=== PATIENT | female | born 1980 ===

== ENCOUNTER → 2020-08-31 15:04 | Outpatient (BNVA) | payer MEDICAID, SELFPAY | PROVIDERS: PCP Internal Medicine; Visit Provider Internal Medicine Pulmonary Disease | DX: J45.40 Moderate persistent asthma, uncomplicated (principal); Z91.09 Other allergy status, other than to drugs and biological substances | CPT/HCPCS: 99212 ==

== ENCOUNTER → 2020-10-29 14:54 | Outpatient (BNVA) | payer MEDICAID, SELFPAY | PROVIDERS: PCP Internal Medicine; Visit Provider Internal Medicine Pulmonary Disease | DX: J45.40 Moderate persistent asthma, uncomplicated (principal); Z91.09 Other allergy status, other than to drugs and biological substances | CPT/HCPCS: 99212 ==

== ENCOUNTER 2021-01-01 12:56 | Outpatient (REF) | payer MEDICAID, SELFPAY ==
--- NOTE | ~2021-01-01 | MM_ITS ---
EXAMINATION: MM DIAGNOSTIC DIGITAL BREAST TOMOSYNTHESIS, Targeted left breast ultrasound upper outer aspect CLINICAL INFORMATION: Nodularity felt by physician the 12 to 3:00 position The lifetime risk of breast cancer based on the Tyrer-Cuzick Model is 10.9%. COMPARISON: Mammography: February 13, 2020 and studies dating back to March 22, 2015 TECHNIQUE: Digital breast tomosynthesis is performed in both the craniocaudal and mediolateral oblique views along with computer-aided detection (CAD). Synthesized 2D images are generated from the tomosynthesis. Additional right breast exaggerated craniocaudal view performed. Targeted left breast ultrasound. FINDINGS: The breasts are extremely dense, which lowers the sensitivity of mammography (ACR BI-RADS breast composition Category d). There are no significant masses, abnormal calcifications, or other abnormalities. Targeted left breast ultrasound to the upper outer aspect did not demonstrate any abnormal cystic or solid mass. No region of abnormal distal sound shadowing was appreciated. Results are provided to the patient at time of visit by the technologist. MM/MM tomosynthesis diagnostic BI IMPRESSION: No mammographic or ultrasound findings to suggest malignancy. ASSESSMENT: BI-RADS 1: Negative RECOMMENDATION: Routine annual mammography screening due in 12 months. Clinical follow-up for palpable abnormality. This patient's information was entered into a reminder system with a target due date for their next mammogram.
--- NOTE | ~2021-01-01 | US_ITS ---
EXAMINATION: US DIAGNOSTIC ULTRASOUND BREAST, LEFT CLINICAL INFORMATION: Nodularity felt by referring physician.. COMPARISON: Mammography of same day and studies dating back to March 22, 2015. TECHNIQUE: Ultrasound of the breast is performed with real-time [place] scale imaging and color Doppler. FINDINGS: There is no focal suspicious finding. There is no solid mass, architectural abnormality, duct ectasia, or edema in the soft tissue planes. Results are discussed with the patient at time of visit. US/US breast LT limited IMPRESSION: No specific left breast ultrasound abnormality to suggest malignancy. ASSESSMENT: BI-RADS 1: Negative RECOMMENDATION: Routine annual mammography screening due in 12 months. Clinical follow-up for palpable abnormality. This patient's information was entered into a reminder system with a target due date for their next mammogram.
== END 2021-01-01 12:57 | disposition home or self-care (01) ==
LOC: HO.MAMMO 12:56
PROVIDERS: PCP Internal Medicine; Visit Provider Advanced Practice Midwife
DX: N63.21 Unspecified lump in the left breast, upper outer quadrant (principal)
CPT/HCPCS: 76642; 77062; 77066

== ENCOUNTER → 2021-03-21 14:32 | Outpatient (BNVA) | payer MEDICAID, SELFPAY | PROVIDERS: PCP Internal Medicine; Visit Provider Internal Medicine Pulmonary Disease | DX: J45.40 Moderate persistent asthma, uncomplicated (principal); Z91.09 Other allergy status, other than to drugs and biological substances; Z88.0 Allergy status to penicillin; Z88.8 Allergy status to other drugs, medicaments and biological substances | CPT/HCPCS: 99212 ==

== ENCOUNTER 2021-05-23 16:17 | Outpatient (REF) | payer MEDICAID, SELFPAY ==
[2021-05-23 16:35] LABS: MANUAL DIFF FLAG NO
[2021-05-23 17:02] LABS: Basophils Percent Auto 0.4 % (0-2); Eosinophils Absolute Auto 0.2 X10*3/uL (0.0-0.4); Eosinophils Percent Auto 1.7 % (0-4); Hematocrit 35.5 % (37-47); Hemoglobin 11.6 g/dl (12.0-16.0); Imm Gran Abs Auto 0.02 X10*3/uL (0.00-0.03); Imm Gran Pct Auto 0.2 % (0.0-0.4); Lymphocytes Absolute Auto 2.9 X10*3/uL (1.2-4.9); Lymphocytes Percent Auto 31.7 % (20-40); Mean Corpuscular HGB Conc 32.7 g/dl (31.0-35.0); Mean Corpuscular Hemoglobin 27.2 pg (27.0-33.0); Mean Corpuscular Volume 83.1 fL (80-98); Mean Platelet Volume 9.6 fL (9.4-12.3); Monocytes Absolute Auto 0.9 X10*3/uL (0.1-1.2); Monocytes Percent Auto 9.3 % (2-11); Neutrophils Absolute Auto 5.3 X10*3/uL (2.0-8.3); Neutrophils Percent Auto 56.7 % (45-73); Platelet Count 370 X10*3/uL (160-400); Red Blood Count 4.27 X10*6/uL (4.20-5.50); Red Cell Distribution Width 15.3 % (11.0-16.0); White Blood Count 9.3 X10*3/uL (4.8-10.8)
[2021-05-23 17:44] LABS: HCG Quantitative < 2 mIU/mL; Procalcitonin 0.03 ng/mL; T4 Thyroxine 7.2 ug/dL (4.5-12.0); TSH reflex Free T4 0.57 uIU/mL (0.32-4.0)
[2021-05-24 06:51] LABS: T3 Uptake 27 % (22-35)
[2021-05-24 17:27] LABS: Follicle Stimulating Hormone 2.3 mIU/mL
[2021-05-30 21:56] LABS: Estradiol Free 8.39 pg/mL; Estradiol, Ultrasensitive 471 pg/mL
== END 2021-05-23 16:18 | disposition home or self-care (01) ==
LOC: HO.LAB 16:17
PROVIDERS: Absent Provider Internal Medicine; PCP Internal Medicine; Visit Provider Family Medicine
DX: N91.1 Secondary amenorrhea (principal)
CPT/HCPCS: 36415; 82670; 82681; 83001; 84145; 84436; 84443; 84479; 84702; 85025

== ENCOUNTER → 2021-11-06 14:26 | Outpatient (BNVA) | payer MEDICAID, SELFPAY | PROVIDERS: PCP Internal Medicine; Visit Provider Internal Medicine Pulmonary Disease | DX: J45.40 Moderate persistent asthma, uncomplicated (principal); Z91.09 Other allergy status, other than to drugs and biological substances | CPT/HCPCS: 99212 ==

== ENCOUNTER 2022-01-03 07:24 | Outpatient (REF) | payer MEDICAID, SELFPAY ==
--- NOTE | ~2022-01-03 | MM_ITS ---
EXAMINATION: MM SCREENING DIGITAL BREAST TOMOSYNTHESIS, BILATERAL CLINICAL INFORMATION: Screening. Asymptomatic. The lifetime risk of breast cancer based on the Tyrer-Cuzick Model is 12%. COMPARISON: Mammography: 01/01/2021, 02/13/2020, 04/03/2019 TECHNIQUE: Digital breast tomosynthesis is performed in both the craniocaudal and mediolateral oblique views along with computer-aided detection (CAD). Synthesized 2D images are generated from the tomosynthesis. FINDINGS: The breasts are extremely dense, which lowers the sensitivity of mammography (ACR BI-RADS breast composition Category d). Breast tissue composition borders on heterogeneously dense. Parenchymal pattern is similar to prior studies. There are no significant masses, abnormal calcifications, or other abnormalities. The axilla and skin contours are unremarkable. MM/MM tomosynthesis screening BI IMPRESSION: No mammographic evidence of malignancy. ASSESSMENT: BI-RADS 1: Negative RECOMMENDATION: Routine annual mammography screening. This patient's information was entered into a reminder system with a target due date for their next mammogram.
== END 2022-01-03 07:25 | disposition home or self-care (01) ==
LOC: HO.MAMMO 07:24
PROVIDERS: Visit Provider Internal Medicine
DX: Z12.31 Encounter for screening mammogram for malignant neoplasm of breast (principal)
CPT/HCPCS: 77063; 77067

== ENCOUNTER 2022-05-08 14:11 | Outpatient (REF) | payer MEDICAID, SELFPAY ==
--- NOTE | ~2022-05-08 | XR_ITS ---
EXAMINATION: XR KNEE, LEFT CLINICAL INFORMATION: Pain. COMPARISON: None TECHNIQUE: Four views of the left knee. FINDINGS: Bones and soft tissues are normal. No fracture or joint effusion. Alignment is anatomic. Joint spaces are well maintained. No abnormal soft tissue calcification. XR/XR knee LT 4V IMPRESSION: Unremarkable left knee exam.
== END 2022-05-08 14:12 | disposition home or self-care (01) ==
LOC: HO.XRAY 14:11
PROVIDERS: PCP Internal Medicine; Visit Provider Internal Medicine
DX: M25.562 Pain in left knee (principal)
CPT/HCPCS: 73564

== ENCOUNTER → 2022-06-16 13:51 | Outpatient (BNVA) | payer MEDICAID, SELFPAY | PROVIDERS: PCP Internal Medicine; Visit Provider Internal Medicine Pulmonary Disease | DX: J45.40 Moderate persistent asthma, uncomplicated (principal); Z91.09 Other allergy status, other than to drugs and biological substances | CPT/HCPCS: 99212 ==

== ENCOUNTER 2022-06-25 14:00 | Outpatient (RCR) | payer MEDICAID, SELFPAY | END 2022-08-15 10:52 | disposition home or self-care (01) | LOC: HO.PT 14:00 | PROVIDERS: PCP Internal Medicine; Visit Provider Internal Medicine | DX: M25.562 Pain in left knee (principal) | CPT/HCPCS: 97110; 97161; 97530 ==

== ENCOUNTER 2022-06-29 12:00 | Emergency (ER) | payer MEDICAID, SELFPAY ==
[2022-06-29 12:20] VITALS: BP 118/68; PULSE 85; RESP 18; TEMP 36.8; O2SAT 98; BMI 26.9
[2022-06-29 12:36] LABS: MANUAL DIFF FLAG NO
[2022-06-29 12:40] LABS: Basophils Percent Auto 0.5 % (0-2); Eosinophils Absolute Auto 0.1 X10*3/uL (0.0-0.4); Eosinophils Percent Auto 0.6 % (0-4); Hematocrit 44.1 % (37.0-47.0); Hemoglobin 14.4 g/dl (12.0-16.0); Imm Gran Abs Auto 0.02 X10*3/uL (0.00-0.03); Imm Gran Pct Auto 0.2 % (0.0-0.4); Lymphocytes Absolute Auto 1.9 X10*3/uL (1.2-4.9); Lymphocytes Percent Auto 21.5 % (20-40); Mean Corpuscular HGB Conc 32.7 g/dl (31.0-35.0); Mean Corpuscular Hemoglobin 27.4 pg (27.0-33.0); Mean Platelet Volume 9.7 fL (9.4-12.3); Monocytes Absolute Auto 0.8 X10*3/uL (0.1-1.2); Monocytes Percent Auto 9.1 % (2-11); Neutrophils Percent Auto 68.1 % (45-73); Platelet Count 387 X10*3/uL (160-400); Red Blood Count 5.25 X10*6/uL (4.20-5.50); Red Cell Distribution Width 13.7 % (11.0-16.0); White Blood Count 8.8 X10*3/uL (4.8-10.8)
--- NOTE | 2022-06-29 12:42 | PC.NURSE ---
at bedside for evaluation. Pt states main complaint is nausea and vomitting. Pt skin wpd, no s/s of dehydration. No pertinent medical hx besides hx of gastritis.
--- NOTE | 2022-06-29 13:00 | ED_ITS ---
HPI - Nausea/Vomiting/Diarrhea General Chief complaint: Nausea/Vomiting/Diarrhea Stated complaint: Nausea/Vomiting Time Seen by Provider: 06/29/22 12:31 Source: patient Mode of arrival: ambulatory Limitations: no limitations History of Present Illness HPI Narrative: 42-year-old female who presents emergency department for evaluation of abdominal pain, nausea, vomiting, diarrhea, lightheadedness and weakness x4 days. Patient states that 4 days prior she had a sudden onset of abdominal pain, nausea, vomiting and diarrhea. She states the pain was initially in her lower abdomen and periumbilical area. The pain was a cramping like pain which would be relieved when she had an episode of diarrhea. She states that after 24 hours the abdominal pain resolved. However she continued to have nausea, vomiting and diarrhea. She states that she has been vomiting 2 to 3 times a day. She states she has had too numerous to count diarrheal stools. She denies any blood in the emesis or diarrhea. She states she has been taking Imodium and her diarrhea has resolved she only had 1 bowel movement today but continues to have nausea and vomiting. She has been able to drink fluid but not eat secondary to her vomiti ng. She states she is feeling weak and lightheaded. She denied fever, chills, rhinorrhea, sore throat, cough, chest pain, shortness of breath, dyspnea on exertion. She denied abdominal pain at this time. She has had no dysuria urgency but she does have frequency. Patient works as a [employer]. She states she has had her 3 COVID vaccinations and also in influenza vaccination. Related Data Home Medications Medication Instructions Recorded Confirmed ascorbic acid (vitamin C) 100 mg 100 mg PO DAILY 08/31/20 tablet cetirizine 10 mg tablet 10 mg PO DAILY PRN 08/31/20 cholecalciferol (vitamin D3) 25 25 mcg PO DAILY 08/31/20 mcg (1,000 unit) capsule fluticasone propionate 110 2 puff inhalation BID 08/31/20 mcg/actuation HFA aerosol inhaler (Flovent HFA) omeprazole magnesium 20 mg 20 mg PO DAILY 08/31/20 tablet,delayed release (Prilosec OTC) Previous Rx's Medication Instructions Recorded montelukast 10 mg tablet 10 mg PO DAILY #30 tabs 05/26/22 albuterol sulfate 90 mcg/actuation 2 puff PO Q4-6H PRN for wheezing 06/23/22 aerosol inhaler (ProAir HFA) #8.5 ea ondansetron 4 mg disintegrating 4 mg PO Q6-8H PRN nausea and 06/29/22 tablet vomiting #14 tabs Allergies Allergy/AdvReac Type Severity Reaction Status Date / Time Penicillins Allergy Mild ITCHING, Verified 06/29/22 12:20 HIVES penicillin V Allergy Unknown Unknown Verified 06/29/22 12:20 tramadol [TRAMADOL] Allergy Unknown VOMITING Verified 06/29/22 12:20 Review of Systems Review of Systems: Yes all other systems are reviewed and are negative [facility] Past Medical History [facility] Narrative: Social history: 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 She denies tobacco, alcohol and drug use. Medical History Asthma Gastritis Surgical History Tubal ligation status Social History Social History Smoked in Last 30 Days: No Advance Directives: No Advance Directives Information Provided: No Patient : No Physical Exam Vital Signs: Vital Signs: Last Vital Signs Temp 98.3 F 06/29/22 12:20 Pulse 85 06/29/22 12:20 Resp 18 06/29/22 12:20 BP 118/68 06/29/22 12:20 Pulse Ox 98 06/29/22 12:20 O2 Del Method 06/29/22 12:20 BMI result Body Mass Index 26.9 Const: Other: Awake, alert, female patient, very pleasant and cooperative, does not appear to be in distress, answers all questions appropriately Orientation/consciousness: oriented to person and oriented to place HEENT: Head: Yes normal to inspection, Yes normocephalic and Yes atraumatic Ears: external ears normal General nose exam: Normal external nose present Face and sinus: Yes normal facial exam Mouth: Normal oral and palatal mucosa present Throat: Yes posterior oropharynx normal Eyes: General: appearance normal, both eyes and all related structures Pupils: Equal, round and reactive pupils present Neck: Neck: Yes normal visual inspection, Yes no lymphadenopathy, Yes trachea midline and Yes supple Chest: Chest palpation & inspection: normal inspection of the chest and normal palpation of entire chest wall Resp: Effort & Inspection: normal respiratory effort and able to speak in complete sentences Auscultation: clear to auscultation bilaterally Cardio: Rate: regular rate Rhythm: regular rhythm Heart sounds: S1 normal heart sound present, S2 normal heart sound present and no murmurs GI: Inspection: Yes normal to inspection Palpation (GI): Soft to palpation, nontender and no guarding Auscultation: normal bowel sounds : General: Yes no CVA tenderness Back/Spine/Pelvis: Back: no CVA tenderness Skin: General skin exam: no rashes or lesions noted Neuro: General: oriented to person and oriented to place Cranial nerves: Yes Equal, round and reactive pupils present Cognition (Neuro): normal cognition Motor exam (neuro): 5/5 motor strength present throughout Extrem: General: Yes normal to inspection Psych: Appearance: grossly normal Speech and movement: Normal speech and movement present Affect: normal affect Attitude: cooperative Course Course Course Narrative: 42-year-old female who presents emergency department for evaluation of 4 days of lightheadedness, dizziness, nausea, vomiting and diarrhea . She initially had abdominal pain which is resolved. She has been able to drink fluid but not eat food. She has taken Imodium and she states that today was the 1st day that she did not have diarrhea. Patient's vital signs were normal. Physical examination revealed no abdominal tenderness. I did order a CBC, BMP, liver panel, urinalysis, COVID-19, influenza. The patient will be treated with normal saline IV x1 L and Zofran 4 mg IV. 1507: Patient's laboratory evaluation was unremarkable. Urinalysis is positive of microscopic revealed significant number squamous cells, the patient has no dysuria, this is most likely a non clean catch specimen and I do not think that she needs antibiotics for urinary tract infection. The patient felt better after the above treatment. Patient will be discharged home with a prescription for Zofran ODT, she was advised to stay on a brat diet and to follow-up with her PCP and return if she is worse. Medications Administered Discontinued Medications Generic Name Dose Route Start Last Admin Trade Name Freq PRN Reason Stop Dose Admin Ondansetron HCl 4 mg 06/29/22 12:56 06/29/22 13:10 Ondansetron Hcl 4 Mg/2 Ml Vial IVPUSH 06/29/22 12:57 4 mg ONCE ONE Administration MDM - Nausea/Vomiting/Diarrhea Lab Data Result diagrams: 06/29/22 12:30 06/29/22 12:30 Labs: Lab Results 06/29/22 06/29/22 06/29/22 Range/Units 12:30 12:30 13:11 WBC 8.8 (4.8-10.8) X10*3/uL RBC 5.25 (4.20-5.50) X10*6/uL Hgb 14.4 (12.0-16.0) g/dl Hct 44.1 (37.0-47.0) % MCV 84.0 (80.0-98.0) fL MCH 27.4 (27.0-33.0) pg MCHC 32.7 (31.0-35.0) g/dl RDW 13.7 (11.0-16.0) % Plt Count 387 (160-400) X10*3/uL MPV 9.7 (9.4-12.3) fL Immature Gran % (Auto) 0.2 (0.0-0.4) % Neut % (Auto) 68.1 (45-73) % Lymph % (Auto) 21.5 (20-40) % [place] % (Auto) 9.1 (2-11) % Eos % (Auto) 0.6 (0-4) % Baso % (Auto) 0.5 (0-2) % Lymph # (Auto) 1.9 (1.2-4.9) X10*3/uL [place] # (Auto) 0.8 (0.1-1.2) X10*3/uL Eos # (Auto) 0.1 (0.0-0.4) X10*3/uL Baso # (Auto) 0.0 (0.0-0.2) X10*3/uL Abs Immat Gran (auto) 0.02 (0.00-0.03) X10*3/uL Absolute Neuts (auto) 6.0 (2.0-8.3) x10*3/uL Absolute Nucleated RBC 0.000 (0.0-0.012) X10*3/uL Nucleated RBC % (auto) 0.0 (0.0-0.2) /100WBC Sodium 140 (135-145) mmol/L Potassium 4.3 (3.3-5.1) mmol/L Chloride 104 (96-108) mmol/L Carbon Dioxide 26 (22-29) mmol/L Anion Gap 14 (12-20) BUN 12 (9-16) mg/dL Creatinine 0.73 (0.5-1.4) mg/dL Estim Creat Clear Calc 77.7 Estimated GFR > 60 Random Glucose 109 (60-115) mg/dL Calcium 10.2 (8.4-10.2) mg/dL Total Bilirubin 0.5 (0.0-1.0) mg/dL Direct Bilirubin 0.2 (0.0-0.5) mg/dL AST 33 H (5-31) U/L ALT 38 H (0-31) U/L Alkaline Phosphatase 83 (39-117) U/L Total Protein 8.6 H (6.5-8.0) g/dL Albumin 4.5 (3.5-5.0) g/dL Lipase 28 (8-78) U/L Urine Color Urine Appearance Urine pH (5.0-9.0) Ur Specific Bryan (1.005-1.025) Urine Protein (Neg-Trace) mg/dL Urine Glucose (UA) (Negative) mg/dL Urine Ketones (Negative) mg/dL Urine Blood (Negative) Urine Nitrite (Negative) Ur Leukocyte Esterase (Negative) Urine RBC (0-2) /HPF Urine WBC (0-5) /HPF Ur Squamous Epith Cells (0-2) /HPF Urine Bacteria (None Seen) Hyaline Casts (0-2) /LPF COVID-19 (MARIAM) Negative (Negative) COVID-19 Clin Com See Note Influenza Type A (SPENCER) (Negative) Influenza Type B (SPENCER) (Negative) Influenza A & B Note 06/29/22 06/29/22 Range/Units 13:11 13:11 WBC (4.8-10.8) X10*3/uL RBC (4.20-5.50) X10*6/uL Hgb (12.0-16.0) g/dl Hct (37.0-47.0) % MCV (80.0-98.0) fL MCH (27.0-33.0) pg MCHC (31.0-35.0) g/dl RDW (11.0-16.0) % Plt Count (160-400) X10*3/uL MPV (9.4-12.3) fL Immature Gran % (Auto) (0.0-0.4) % Neut % (Auto) (45-73) % Lymph % (Auto) (20-40) % [place] % (Auto) (2-11) % Eos % (Auto) (0-4) % Baso % (Auto) (0-2) % Lymph # (Auto) (1.2-4.9) X10*3/uL [place] # (Auto) (0.1-1.2) X10*3/uL Eos # (Auto) (0.0-0.4) X10*3/uL Baso # (Auto) (0.0-0.2) X10*3/uL Abs Immat Gran (auto) (0.00-0.03) X10*3/uL Absolute Neuts (auto) (2.0-8.3) x10*3/uL Absolute Nucleated RBC (0.0-0.012) X10*3/uL Nucleated RBC % (auto) (0.0-0.2) /100WBC Sodium (135-145) mmol/L Potassium (3.3-5.1) mmol/L Chloride (96-108) mmol/L Carbon Dioxide (22-29) mmol/L Anion Gap (12-20) BUN (9-16) mg/dL Creatinine (0.5-1.4) mg/dL Estim Creat Clear Calc Estimated GFR Random Glucose (60-115) mg/dL Calcium (8.4-10.2) mg/dL Total Bilirubin (0.0-1.0) mg/dL Direct Bilirubin (0.0-0.5) mg/dL AST (5-31) U/L ALT (0-31) U/L Alkaline Phosphatase (39-117) U/L Total Protein (6.5-8.0) g/dL Albumin (3.5-5.0) g/dL Lipase (8-78) U/L Urine Color Yellow Urine Appearance Cloudy Urine pH 6.5 (5.0-9.0) Ur Specific Bryan 1.025 (1.005-1.025) Urine Protein Negative (Neg-Trace) mg/dL Urine Glucose (UA) Negative (Negative) mg/dL Urine Ketones Trace (Negative) mg/dL Urine Blood Small (1+) H (Negative) Urine Nitrite Negative (Negative) Ur Leukocyte Esterase Moderate (2+) H (Negative) Urine RBC 6-10 H (0-2) /HPF Urine WBC 11-20 H (0-5) /HPF Ur Squamous Epith Cells >20 (0-2) /HPF Urine Bacteria 2+ (None Seen) Hyaline Casts 0-2 (0-2) /LPF COVID-19 (MARIAM) (Negative) COVID-19 Clin Com Influenza Type A (SPENCER) Negative (Negative) Influenza Type B (SPENCER) Negative (Negative) Influenza A & B Note See Note Discharge Plan Discharge Clinical Impression: Viral illness, Diarrhea, Acute dehydration Vomiting Qualifiers: Vomiting type: unspecified Nausea presence: with nausea Qualified Code(s): R11.2 - Nausea with vomiting, unspecified Patient Disposition: Home, Self-Care Instructions: Viral Syndrome (ED) Additional Instructions: Your blood work was normal. At this time I do not think that you have a urine infection but we will culture your urine to see if we can grow any bacteria out of the urine. If the urine grows bacteria the ER should contact you and start you on antibiotic. However if you start to get pain when you urinate or if your urinating more frequently than usual then you should follow-up with your doctor to be re-evaluated for possible urinary tract infection. Take Zofran ODT 4 mg pills, 1 pill dissolved in your mouth every 8 hours as needed for nausea and vomiting. Follow-up with your doctor in 2 days. Please return to the emergency department if your symptoms get worse or if you develop any symptoms that are concerning to you. Prescriptions: New ondansetron 4 mg tablet,disintegrating 4 mg PO Q6-8H PRN (Reason: nausea and vomiting) Qty: 14 0RF No Action montelukast 10 mg tablet 10 mg PO DAILY Qty: 30 2RF albuterol sulfate [ProAir HFA] 90 mcg/actuation HFA aerosol inhaler 2 puff PO Q4-6H PRN (Reason: for wheezing) Qty: 8.5 6RF cetirizine 10 mg tablet 10 mg PO DAILY PRN Flovent HFA 110 mcg/actuation HFA aerosol inhaler 2 puff inhalation BID omeprazole magnesium [Prilosec OTC] 20 mg tablet,delayed release (DR/EC) 20 mg PO DAILY cholecalciferol (vitamin D3) 25 mcg (1,000 unit) capsule 25 mcg PO DAILY ascorbic acid (vitamin C) 100 mg tablet 100 mg PO DAILY
[2022-06-29] MEDS: ondansetron HCL 4 MG/2 ML VIAL IVPUSH (13:10)
[2022-06-29 13:11] LABS: Alanine Aminotransferase 38 U/L (0-31); Albumin Level 4.5 g/dL (3.5-5.0); Alkaline Phosphatase 83 U/L (39-117); Anion Gap 14 (12-20); Aspartate Amino Transferase 33 U/L (5-31); Bilirubin Direct 0.2 mg/dL (0.0-0.5); Bilirubin Total 0.5 mg/dL (0.0-1.0); Blood Urea Nitrogen 12 mg/dL (9-16); Calcium 10.2 mg/dL (8.4-10.2); Carbon Dioxide 26 mmol/L (22-29); Chloride 104 mmol/L (96-108); Creatinine Clr Calc Pharmacy 77.7; Estimated Glomerular Filt Rate > 60; Glucose Random 109 mg/dL (60-115); Lipase 28 U/L (8-78); Potassium 4.3 mmol/L (3.3-5.1); Sodium 140 mmol/L (135-145); Total Protein 8.6 g/dL (6.5-8.0)
[2022-06-29 13:22] LABS: Appearance Urine Cloudy; Color Urine Yellow; Glucose Urine UA Negative (Negative); Leukocyte Esterase Urine Moderate (2+) (Negative); Nitrite Urine Negative (Negative); PH 6.5 (5.0-9.0); Specific Gravity - Urine 1.025 (1.005-1.025); UMIC TRIGGER UACC YES; Urine Blood Small (1+) (Negative); Urine Ketones Trace mg/dL (Negative); Urine Protein Negative (Neg-Trace)
[2022-06-29 13:39] LABS: IDNOW Serial# 16C4AD1C
[2022-06-29 13:40] LABS: COVID-19 Test Negative (Negative); IDNOW Serial# BCCEAD1C; Influenza A Negative (Negative); Influenza B2 Negative (Negative)
[2022-06-29 14:43] LABS: Bacteria Urine 2+ (None Seen); Hyaline Casts Urine 0-2 /LPF (0-2); Squamous Epithelial Cell Urine >20 /HPF (0-2); UACC Culture Trigger YES
== END 2022-06-29 15:29 | disposition home or self-care (01) ==
PROVIDERS: Emergency Provider Emergency Medicine Emergency Medical Services
DX: B34.9 Viral infection, unspecified (principal); R11.2 Nausea with vomiting, unspecified; E86.0 Dehydration; Z20.822 Contact with and (suspected) exposure to COVID-19; Z79.899 Other long term (current) drug therapy
CPT/HCPCS: 36415; 80048; 80076; 81001; 83690; 85025; 87086; 87502; 87635; 96374; 99284; J2405

== ENCOUNTER 2022-12-02 15:36 | Emergency (ER) | payer OTHER, MEDICAID, SELFPAY ==
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
[2022-12-02 16:17] VITALS: BP 140/85; PULSE 98; RESP 17; TEMP 36.4; O2SAT 99; BMI 28.3
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
== END 2022-12-02 17:38 | disposition home or self-care (01) ==
PROVIDERS: Emergency Provider Emergency Medicine; PCP Internal Medicine
DX: S80.02XA Contusion of left knee, initial encounter (principal); V43.52XA Car driver injured in collision with other type car in traffic accident, initial encounter; Y93.89 Activity, other specified; Y92.414 Local residential or business street as the place of occurrence of the external cause; Y99.9 Unspecified external cause status
CPT/HCPCS: 73562; 99282; 99283

== ENCOUNTER → 2022-12-19 13:01 | Outpatient (BNVA) | payer MEDICAID, SELFPAY | PROVIDERS: PCP Internal Medicine; Visit Provider Internal Medicine Pulmonary Disease | DX: J45.40 Moderate persistent asthma, uncomplicated (principal); Z91.09 Other allergy status, other than to drugs and biological substances | CPT/HCPCS: 99212 ==

== ENCOUNTER 2023-02-26 07:56 | Outpatient (REF) | payer MEDICAID, SELFPAY ==
--- NOTE | ~2023-02-26 | MM_ITS ---
EXAMINATION: MM SCREENING DIGITAL BREAST TOMOSYNTHESIS, BILATERAL CLINICAL INFORMATION: Screening. Asymptomatic. The lifetime risk of breast cancer based on the Tyrer-Cuzick Model is 11%. COMPARISON: Mammography: This study is compared with prior exams dating back to 2019. TECHNIQUE: Digital breast tomosynthesis is performed in both the craniocaudal and mediolateral oblique views along with computer-aided detection (CAD). Synthesized 2D images are generated from the tomosynthesis. FINDINGS: The breasts are heterogeneously dense, which may obscure small masses (ACR BI-RADS breast composition Category c). There are no significant masses, abnormal calcifications, or other abnormalities. MM/MM tomosynthesis screening BI IMPRESSION: No mammographic evidence of malignancy. ASSESSMENT: BI-RADS BI-RADS 1 - Negative RECOMMENDATION: Routine annual mammography screening. 1 year F/U This examination should not preclude the clinical evaluation of a suspicious palpable abnormality. This patient's information was entered into a reminder system with a target due date for their next mammogram.
== END 2023-02-26 07:57 | disposition home or self-care (01) ==
LOC: HO.MAMMO 07:56
PROVIDERS: PCP Internal Medicine; Visit Provider Internal Medicine
DX: Z12.31 Encounter for screening mammogram for malignant neoplasm of breast (principal)
CPT/HCPCS: 77063; 77067

== ENCOUNTER → 2023-02-26 08:00 | Outpatient (BNV) | payer MEDICAID, SELFPAY | PROVIDERS: PCP Internal Medicine; Visit Provider Radiology Diagnostic Radiology | DX: Z12.31 Encounter for screening mammogram for malignant neoplasm of breast (principal) | CPT/HCPCS: 77063; 77067 ==

== ENCOUNTER 2023-04-26 15:21 | Emergency (ER) | payer MEDICAID, SELFPAY ==
[2023-04-26 15:39] VITALS: BP 125/68; PULSE 79; RESP 18; TEMP 36.6; O2SAT 98; BMI 28.7
[2023-04-26 16:04] LABS: MANUAL DIFF FLAG NO
[2023-04-26 16:17] LABS: Anion Gap 13 (12-20); Blood Urea Nitrogen 12 mg/dL (9-16); Calcium 9.8 mg/dL (8.4-10.2); Carbon Dioxide 24 mmol/L (22-29); Chloride 107 mmol/L (96-108); Creatinine Clr Calc Pharmacy 94.9; Estimated Glomerular Filt Rate > 60; Glucose Random 96 mg/dL (60-115); Potassium 4.1 mmol/L (3.3-5.1); Sodium 140 mmol/L (135-145)
[2023-04-26 16:23] LABS: Appearance Urine Cloudy; Color Urine Dark Yellow; Glucose Urine UA Negative (Negative); Leukocyte Esterase Urine Trace (Negative); Nitrite Urine Negative (Negative); PH 5.5 (5.0-9.0); Specific Gravity - Urine >= 1.030 (1.005-1.025); UMIC TRIGGER UACC YES; Urine Blood Trace (Negative); Urine Ketones 40 mg/dL (Negative); Urine Protein Trace mg/dL (Neg-Trace)
[2023-04-26 16:25] LABS: Basophils Absolute Auto 0.1 X10*3/uL (0.0-0.2); Basophils Percent Auto 0.4 % (0-2); Eosinophils Percent Auto 0.2 % (0-4); Hematocrit 39.6 % (37.0-47.0); Hemoglobin 13.3 g/dl (12.0-16.0); Imm Gran Abs Auto 0.08 X10*3/uL (0.00-0.03); Imm Gran Pct Auto 0.7 % (0.0-0.4); Lymphocytes Absolute Auto 1.7 X10*3/uL (1.2-4.9); Lymphocytes Percent Auto 15.3 % (20-40); Mean Corpuscular HGB Conc 33.6 g/dl (31.0-35.0); Mean Corpuscular Hemoglobin 27.8 pg (27.0-33.0); Mean Corpuscular Volume 82.8 fL (80.0-98.0); Mean Platelet Volume 9.8 fL (9.4-12.3); Monocytes Absolute Auto 0.9 X10*3/uL (0.1-1.2); Monocytes Percent Auto 8.2 % (2-11); Neutrophils Absolute Auto 8.4 x10*3/uL (2.0-8.3); Neutrophils Percent Auto 75.2 % (45-73); Platelet Count 364 X10*3/uL (160-400); Red Blood Count 4.78 X10*6/uL (4.20-5.50); Red Cell Distribution Width 14.4 % (11.0-16.0); White Blood Count 11.2 X10*3/uL (4.8-10.8)
[2023-04-26 16:28] LABS: Bacteria Urine 4+ (None Seen); Squamous Epithelial Cell Urine >20 /HPF (0-2); WBC Urine 0-5 /HPF (0-5)
[2023-04-26 16:39] VITALS: BP 118/72; PULSE 79; RESP 18; TEMP 36.7; O2SAT 99
--- NOTE | 2023-04-26 16:42 | PC.NURSE ---
pt reports nausea since yesterday, vomiting multiple times today. pt tried to drink fluid but vomited after each time. last episode was around 3pm. has not drank anything since. no abd pain, tenderness, or diarrhea reported
--- NOTE | 2023-04-26 17:03 | ED_ITS ---
HPI - Nausea/Vomiting/Diarrhea General Chief complaint: Nausea/Vomiting/Diarrhea Stated complaint: vomiting Time Seen by Provider: 04/26/23 16:59 Mode of arrival: ambulatory Limitations: no limitations History of Present Illness HPI Narrative: Patient feeling nauseated since yesterday vomited 4 times earlier today no abdominal pain no diarrhea no fever no chills no seafood intake no recent travel no other family member sick no urinary symptom Related Data Home Medications Medication Instructions Recorded Confirmed ascorbic acid (vitamin C) 100 mg 100 mg PO DAILY 08/31/20 tablet cetirizine 10 mg tablet 10 mg PO DAILY PRN 08/31/20 cholecalciferol (vitamin D3) 25 25 mcg PO DAILY 08/31/20 mcg (1,000 unit) capsule fluticasone propionate 110 2 puff inhalation BID 08/31/20 mcg/actuation HFA aerosol inhaler (Flovent HFA) omeprazole magnesium 20 mg 20 mg PO DAILY 08/31/20 tablet,delayed release (Prilosec OTC) Previous Rx's Medication Instructions Recorded albuterol sulfate 90 mcg/actuation 2 puff PO Q4-6H PRN for wheezing 06/23/22 aerosol inhaler (ProAir HFA) #8.5 ea ondansetron 4 mg disintegrating 4 mg PO Q6-8H PRN nausea and 06/29/22 tablet vomiting #14 tabs montelukast 10 mg tablet 10 mg PO DAILY #90 tabs 11/28/22 ondansetron 4 mg disintegrating 4 mg PO Q6-8H PRN nausea and 04/26/23 tablet vomiting #7 tabs Allergies Allergy/AdvReac Type Severity Reaction Status Date / Time Penicillins Allergy Mild ITCHING, Verified 04/26/23 15:39 HIVES penicillin V Allergy Unknown Unknown Verified 04/26/23 15:39 tramadol [TRAMADOL] Allergy Unknown VOMITING Verified 04/26/23 15:39 Review of Systems 2 Review of Systems: Yes all other systems are reviewed and are negative PMFSH Past Medical History Medical History Asthma Gastritis Surgical History Tubal ligation status Social History Social History Alcohol intake: never Smoked in Last 30 Days: No Use of substances other than those prescribed or required for medical reasons: No Advance Directives: No Advance Directives Information Provided: No Patient : No Physical Exam 2 Vital Signs: Vital Signs: Last Vital Signs Temp 98.1 F 04/26/23 16:39 Pulse 79 04/26/23 16:39 Resp 18 04/26/23 16:39 BP 118/72 04/26/23 16:39 Pulse Ox 99 04/26/23 16:39 O2 Del Method Room Air 04/26/23 16:39 BMI result Body Mass Index 28.7 Appearance: Alert. Oriented X3. No acute distress. Eyes: No pallor or icterus ENT: Pharynx normal. Oral Mucosa moist Neck: Normal inspection. Neck supple. CVS: Normal heart rate and rhythm. Pulses normal. Respiratory: No respiratory distress. Equal air entry bilateral, no wheezing/rales/rhonchi Abdomen: Soft and nontender. Bowel sounds are present, no mass palpable, no CVA tenderness Skin: Skin warm and dry. Normal skin color. Normal skin turgor. Extremities: No lower extremity edema. No calf tenderness Neuro: Oriented X 3. Medications Administered Discontinued Medications Generic Name Dose Route Start Last Admin Trade Name Freq PRN Reason Stop Dose Admin Ondansetron HCl 4 mg 04/26/23 17:04 04/26/23 17:33 Ondansetron Odt 4 Mg Tab.Rapdis TRANSLINGU 04/26/23 17:05 4 mg ONCE ONE Administration Medical Decision Making Medical Decision Making [facility] Narrative: Patient likely with viral gastroenteritis labs are stable feeling much better after taking Zofran sublingual discharge patient home Differential Diagnosis Differential Diagnoses: The differential diagnosis associated with the presentation includes Gastritis/viral gastroenteritis/UTI/pancreatitis/cholecystitis Lab Data [facility] Lab Attestation statement: I reviewed the patient's lab results. 04/26/23 15:59 04/26/23 15:59 Labs: Lab Results 04/26/23 04/26/23 Range/Units 15:59 16:15 WBC 11.2 H (4.8-10.8) X10*3/uL RBC 4.78 (4.20-5.50) X10*6/uL Hgb 13.3 (12.0-16.0) g/dl Hct 39.6 (37.0-47.0) % MCV 82.8 (80.0-98.0) fL MCH 27.8 (27.0-33.0) pg MCHC 33.6 (31.0-35.0) g/dl RDW 14.4 (11.0-16.0) % Plt Count 364 (160-400) X10*3/uL MPV 9.8 (9.4-12.3) fL Immature Gran % (Auto) 0.7 H (0.0-0.4) % Neut % (Auto) 75.2 H (45-73) % Lymph % (Auto) 15.3 L (20-40) % [place] % (Auto) 8.2 (2-11) % Eos % (Auto) 0.2 (0-4) % Baso % (Auto) 0.4 (0-2) % Lymph # (Auto) 1.7 (1.2-4.9) X10*3/uL [place] # (Auto) 0.9 (0.1-1.2) X10*3/uL Eos # (Auto) 0.0 (0.0-0.4) X10*3/uL Baso # (Auto) 0.1 (0.0-0.2) X10*3/uL Abs Immat Gran (auto) 0.08 H (0.00-0.03) X10*3/uL Absolute Neuts (auto) 8.4 H (2.0-8.3) x10*3/uL Absolute Nucleated RBC 0.000 (0.0-0.012) X10*3/uL Nucleated RBC % (auto) 0.0 (0.0-0.2) /100WBC Sodium 140 (135-145) mmol/L Potassium 4.1 (3.3-5.1) mmol/L Chloride 107 (96-108) mmol/L Carbon Dioxide 24 (22-29) mmol/L Anion Gap 13 (12-20) BUN 12 (9-16) mg/dL Creatinine 0.61 (0.5-1.4) mg/dL Estim Creat Clear Calc 94.9 Estimated GFR > 60 Random Glucose 96 (60-115) mg/dL Calcium 9.8 (8.4-10.2) mg/dL Urine Color Dark Yellow Urine Appearance Cloudy Urine pH 5.5 (5.0-9.0) Ur Specific [place] >= 1.030 H (1.005-1.025) Urine Protein Trace (Neg-Trace) mg/dL Urine Glucose (UA) Negative (Negative) mg/dL Urine Ketones 40 (Negative) mg/dL Urine Blood Trace H (Negative) Urine Nitrite Negative (Negative) Ur Leukocyte Esterase Trace H (Negative) Urine RBC 11-20 H (0-2) /HPF Urine WBC 0-5 (0-5) /HPF Ur Squamous Epith Cells >20 (0-2) /HPF Urine Bacteria 4+ (None Seen) Hyaline Casts 3-5 (0-2) /LPF Discharge Plan Discharge Clinical Impression: Nausea & vomiting Patient Disposition: Home, Self-Care Instructions: Acute Nausea and Vomiting (ED) Additional Instructions: Drink plenty of fluids Medicine for nausea as prescribed Follow with PCP if not better Prescriptions: New ondansetron 4 mg tablet,disintegrating 4 mg PO Q6-8H PRN (Reason: nausea and vomiting) Qty: 7 0RF No Action albuterol sulfate [ProAir HFA] 90 mcg/actuation HFA aerosol inhaler 2 puff PO Q4-6H PRN (Reason: for wheezing) Qty: 8.5 6RF montelukast 10 mg tablet 10 mg PO DAILY Qty: 90 2RF ondansetron 4 mg tablet,disintegrating 4 mg PO Q6-8H PRN (Reason: nausea and vomiting) Qty: 14 0RF cetirizine 10 mg tablet 10 mg PO DAILY PRN Flovent HFA 110 mcg/actuation HFA aerosol inhaler 2 puff inhalation BID omeprazole magnesium [Prilosec OTC] 20 mg tablet,delayed release (DR/EC) 20 mg PO DAILY cholecalciferol (vitamin D3) 25 mcg (1,000 unit) capsule 25 mcg PO DAILY ascorbic acid (vitamin C) 100 mg tablet 100 mg PO DAILY
[2023-04-26] MEDS: Ondansetron ODT 4 MG TAB.RAPDIS TRANSLINGU (17:33)
== END 2023-04-26 18:38 | disposition home or self-care (01) ==
PROVIDERS: Emergency Provider Internal Medicine; PCP Student in an Organized Health Care Education/Training Program
DX: R11.2 Nausea with vomiting, unspecified (principal); Z79.899 Other long term (current) drug therapy
CPT/HCPCS: 36415; 80048; 81001; 85025; 99283; 99284

== ENCOUNTER 2023-05-02 09:06 | Emergency (ER) | payer MEDICAID, SELFPAY ==
[2023-05-02 09:07] VITALS: BP 136/94; PULSE 81; RESP 18; TEMP 36.3; O2SAT 99; BMI 28.7
--- NOTE | 2023-05-02 09:30 | ED.NAVMDI ---
HPI - Nausea/Vomiting/Diarrhea General Chief complaint: Nausea/Vomiting/Diarrhea Stated complaint: nausea/ diarrhea Time Seen by Provider: 05/02/23 09:30 Source: patient Mode of arrival: ambulatory Limitations: no limitations History of Present Illness HPI Narrative: 43 yo female presenting to the ER for evaluation of nausea, vomiting and diarrhea that started yesterday. No abdominal pain. She reports being seen here for similar complaints on 04/26. She stuck to a bland diet this week and seemed better however her symptoms got worse again yesterday. No fevers but she has had chills. No cough, SOB, chest pain, body aches. She is afraid to eat due to the nausea. Diarrhea has been non-bloody and 3 times in the last 24 hours. No known sick contacts at home. MD elicited complaint: nausea, vomiting and diarrhea Onset (ago): day(s) (1) Description of vomiting: food contents Description of diarrhea: loose Associated nausea: Yes Associated abdominal pain: No Location of pain: none Exacerbating factors: eating Relieving factors: none Associated symptoms: fever/chills, loss of appetite, malaise and nausea/vomiting Related Data Home Medications Medication Instructions Recorded Confirmed ascorbic acid (vitamin C) 100 mg 100 mg PO DAILY 08/31/20 tablet cetirizine 10 mg tablet 10 mg PO DAILY PRN 08/31/20 cholecalciferol (vitamin D3) 25 25 mcg PO DAILY 08/31/20 mcg (1,000 unit) capsule fluticasone propionate 110 2 puff inhalation BID 08/31/20 mcg/actuation HFA aerosol inhaler (Flovent HFA) omeprazole magnesium 20 mg 20 mg PO DAILY 08/31/20 tablet,delayed release (Prilosec OTC) Previous Rx's Medication Instructions Recorded albuterol sulfate 90 mcg/actuation 2 puff PO Q4-6H PRN for wheezing 06/23/22 aerosol inhaler (ProAir HFA) #8.5 ea ondansetron 4 mg disintegrating 4 mg PO Q6-8H PRN nausea and 06/29/22 tablet vomiting #14 tabs montelukast 10 mg tablet 10 mg PO DAILY #90 tabs 11/28/22 ondansetron 4 mg disintegrating 4 mg PO Q6-8H PRN nausea and 04/26/23 tablet vomiting #7 tabs ondansetron 4 mg disintegrating 4 mg PO Q8H PRN nausea and 05/02/23 tablet vomiting #10 tabs Allergies Allergy/AdvReac Type Severity Reaction Status Date / Time Penicillins Allergy Mild ITCHING, Verified 05/02/23 09:09 HIVES penicillin V Allergy Unknown Unknown Verified 05/02/23 09:09 tramadol [TRAMADOL] Allergy Unknown VOMITING Verified 05/02/23 09:09 Review of Systems Review of Systems: Yes all other systems are reviewed and are negative Gastrointestinal: Gastrointestinal: Reports nausea PMFSH Past Medical History Medical History Asthma Gastritis Surgical History Tubal ligation status Social History Social History Alcohol intake: never Advance Directives: No Advance Directives Information Provided: No Physical Exam Vital Signs: Vital Signs: Last Vital Signs Temp 98.4 F 05/02/23 09:51 Pulse 81 05/02/23 09:51 Resp 16 05/02/23 09:51 BP 133/77 05/02/23 09:51 Pulse Ox 100 05/02/23 09:51 O2 Del Method Room Air 05/02/23 09:51 BMI result Body Mass Index 28.7 Appearance: Alert. Oriented X3. No acute distress. Head: normocephalic, atraumatic. Eyes: Pupils equal, round and reactive to light. ENT: Pharynx normal. No tonsillar swelling or exudate. Neck: Normal inspection. Neck supple. CVS: Normal heart rate and rhythm. Pulses normal. Respiratory: No respiratory distress. Breath sounds normal. Abdomen: Soft and nontender. +BS x4 Skin: Skin warm and dry. Normal skin color. Normal skin turgor. No rashes. Extremities: No lower extremity edema. No joint swelling. Neuro/psych: Oriented X 3. No motor deficit. No sensory deficit. CN II-XII intact. Normal speech and cognition. Medications Administered Discontinued Medications Generic Name Dose Route Start Last Admin Trade Name Freq PRN Reason Stop Dose Admin Bismuth Subsalicylate 524 mg 05/02/23 10:09 05/02/23 10:44 Bismuth Subsalicylate 262 Mg Tablet PO 05/02/23 10:10 524 mg ONCE ONE Administration Omeprazole 40 mg 05/02/23 10:05/02/23 10:52 Omeprazole 40 Mg Capsule. PO 05/02/23 10:10 Not Given ONCE ONE Ondansetron HCl 4 mg 05/02/23 10:05/02/23 10:44 Ondansetron Odt 4 Mg Tab.Jase TRANSLINGU 05/02/23 10:10 4 mg ONCE ONE Administration Medical Decision Making Medical Decision Making [facility] Narrative: 43 yo female presenting with N/V/D x1 day. No abdominal pain. VSS and abdominal exam is benign. Lab workup unremarkable. UA Negative for infection. negative for COVID and Flu given Gi cocktail and antiemetic. now tolerating PO. comfortable w/ discharge home with prn zofran and supportive care. return precautions discussed. Differential Diagnosis Differential Diagnoses: The differential diagnosis associated with the presentation includes gastritis, gastroenteritis, cholecystitis, bowel obstruction, food intolerance, food poisoning Admission/Observation Consideration of admission/observation: Escalation of care including admission/observation considered 2nd visit this week - considered observation but her symptoms improved w/ treatment Lab Data [facility] Lab Attestation statement: I reviewed the patient's lab results. 05/02/23 09:48 05/02/23 09:48 Labs: Lab Results 05/02/23 05/02/23 Range/Units 09:48 11:04 WBC 8.5 (4.8-10.8) X10*3/uL RBC 5.24 (4.20-5.50) X10*6/uL Hgb 14.5 (12.0-16.0) g/dl Hct 44.1 (37.0-47.0) % MCV 84.2 (80.0-98.0) fL MCH 27.7 (27.0-33.0) pg MCHC 32.9 (31.0-35.0) g/dl RDW 14.2 (11.0-16.0) % Plt Count 399 (160-400) X10*3/uL MPV 9.7 (9.4-12.3) fL Immature Gran % (Auto) 0.1 (0.0-0.4) % Neut % (Auto) 65.0 (45-73) % Lymph % (Auto) 24.1 (20-40) % [place] % (Auto) 9.5 (2-11) % Eos % (Auto) 0.7 (0-4) % Baso % (Auto) 0.6 (0-2) % Lymph # (Auto) 2.1 (1.2-4.9) X10*3/uL [place] # (Auto) 0.8 (0.1-1.2) X10*3/uL Eos # (Auto) 0.1 (0.0-0.4) X10*3/uL Baso # (Auto) 0.1 (0.0-0.2) X10*3/uL Abs Immat Gran (auto) 0.01 (0.00-0.03) X10*3/uL Absolute Neuts (auto) 5.5 (2.0-8.3) x10*3/uL Absolute Nucleated RBC 0.000 (0.0-0.012) X10*3/uL Nucleated RBC % (auto) 0.0 (0.0-0.2) /100WBC Sodium 138 (135-145) mmol/L Potassium 4.0 (3.3-5.1) mmol/L Chloride 107 (96-108) mmol/L Carbon Dioxide 20 L (22-29) mmol/L Anion Gap 15 (12-20) BUN 11 (9-16) mg/dL Creatinine 0.65 (0.5-1.4) mg/dL Estim Creat Clear Calc 89.2 Estimated GFR > 60 Random Glucose 104 (60-115) mg/dL Calcium 9.3 (8.4-10.2) mg/dL Total Bilirubin 0.5 (0.0-1.0) mg/dL AST 18 (5-31) U/L ALT 15 (0-31) U/L Alkaline Phosphatase 78 (39-117) U/L Total Protein 8.2 H (6.5-8.0) g/dL Albumin 4.1 (3.5-5.0) g/dL Urine Color RED Urine Appearance Hazy Urine pH 7.0 (5.0-9.0) Ur Specific [place] 1.020 (1.005-1.025) Urine Protein 100 (2+) H (Neg-Trace) mg/dL Urine Glucose (UA) Negative (Negative) mg/dL Urine Ketones 15 (Negative) mg/dL Urine Blood Large (3+) H (Negative) Urine Nitrite Negative (Negative) Ur Leukocyte Esterase Trace H (Negative) Urine RBC >20 H (0-2) /HPF Urine WBC 11-20 H (0-5) /HPF Ur Squamous Epith Cells 6-10 (0-2) /HPF Urine Bacteria 1+ (None Seen) Hyaline Casts 0-2 (0-2) /LPF COVID-19 (MARIAM) Negative (Negative) COVID-19 Clin Com See Note Influenza Type A (SPENCER) Negative (Negative) Influenza Type B (SPENCER) Negative (Negative) Influenza A & B Note See Note External Record Review External record reviewed: Outpatient record, Prior outpatient labs and Prior outpatient radiology Prescription Management I considered prescription management with: Other (antiemetic) Critical Care Time Critical Care Time Critical Care Time: No Discharge Plan Discharge Clinical Impression: Gastroenteritis Patient Disposition: Home, Self-Care Instructions: Gastroenteritis (DC) Additional Instructions: You lab workup today was unremarkable. You are negative for Flu and COVID. Your urine test was negative for infection. You most likely have a viral GI bug also known as gastroenteritis. Treatment is supportive care, symptoms usually resolve on their own in 48-72 hours. Recommend rest and plenty of oral hydration. Stick to a bland diet like soup and toast while you are not feeling well. Take the prescribed medication as needed for nausea. Recommend over the counter Pepto Bismol or Imodium for upset stomach and diarrhea. Follow up with your doctor as needed. If you develop new or worsening symptoms call 911 or come back to the ER for further evaluation. Prescriptions: New ondansetron 4 mg tablet,disintegrating 4 mg PO Q8H PRN (Reason: nausea and vomiting) Qty: 10 0RF No Action albuterol sulfate [ProAir HFA] 90 mcg/actuation HFA aerosol inhaler 2 puff PO Q4-6H PRN (Reason: for wheezing) Qty: 8.5 6RF montelukast 10 mg tablet 10 mg PO DAILY Qty: 90 2RF ondansetron 4 mg tablet,disintegrating 4 mg PO Q6-8H PRN (Reason: nausea and vomiting) Qty: 14 0RF ondansetron 4 mg tablet,disintegrating 4 mg PO Q6-8H PRN (Reason: nausea and vomiting) Qty: 7 0RF cetirizine 10 mg tablet 10 mg PO DAILY PRN Flovent HFA 110 mcg/actuation HFA aerosol inhaler 2 puff inhalation BID omeprazole magnesium [Prilosec OTC] 20 mg tablet,delayed release (DR/EC) 20 mg PO DAILY cholecalciferol (vitamin D3) 25 mcg (1,000 unit) capsule 25 mcg PO DAILY ascorbic acid (vitamin C) 100 mg tablet 100 mg PO DAILY Stand Alone Forms: Work/School Release
[2023-05-02 09:51] VITALS: BP 133/77; PULSE 81; RESP 16; TEMP 36.9; O2SAT 100
[2023-05-02 09:51] LABS: MANUAL DIFF FLAG NO
[2023-05-02 09:53] LABS: Basophils Absolute Auto 0.1 X10*3/uL (0.0-0.2); Basophils Percent Auto 0.6 % (0-2); Eosinophils Absolute Auto 0.1 X10*3/uL (0.0-0.4); Eosinophils Percent Auto 0.7 % (0-4); Hematocrit 44.1 % (37.0-47.0); Hemoglobin 14.5 g/dl (12.0-16.0); Imm Gran Abs Auto 0.01 X10*3/uL (0.00-0.03); Imm Gran Pct Auto 0.1 % (0.0-0.4); Lymphocytes Absolute Auto 2.1 X10*3/uL (1.2-4.9); Lymphocytes Percent Auto 24.1 % (20-40); Mean Corpuscular HGB Conc 32.9 g/dl (31.0-35.0); Mean Corpuscular Hemoglobin 27.7 pg (27.0-33.0); Mean Corpuscular Volume 84.2 fL (80.0-98.0); Mean Platelet Volume 9.7 fL (9.4-12.3); Monocytes Absolute Auto 0.8 X10*3/uL (0.1-1.2); Monocytes Percent Auto 9.5 % (2-11); Neutrophils Absolute Auto 5.5 x10*3/uL (2.0-8.3); Platelet Count 399 X10*3/uL (160-400); Red Blood Count 5.24 X10*6/uL (4.20-5.50); Red Cell Distribution Width 14.2 % (11.0-16.0); White Blood Count 8.5 X10*3/uL (4.8-10.8)
[2023-05-02 10:11] LABS: Alanine Aminotransferase 15 U/L (0-31); Albumin Level 4.1 g/dL (3.5-5.0); Alkaline Phosphatase 78 U/L (39-117); Anion Gap 15 (12-20); Aspartate Amino Transferase 18 U/L (5-31); Bilirubin Total 0.5 mg/dL (0.0-1.0); Blood Urea Nitrogen 11 mg/dL (9-16); Calcium 9.3 mg/dL (8.4-10.2); Carbon Dioxide 20 mmol/L (22-29); Chloride 107 mmol/L (96-108); Creatinine Clr Calc Pharmacy 89.2; Estimated Glomerular Filt Rate > 60; Glucose Random 104 mg/dL (60-115); Sodium 138 mmol/L (135-145); Total Protein 8.2 g/dL (6.5-8.0)
[2023-05-02 10:26] LABS: IDNOW Serial# BCCEAD1C; Influenza A Negative (Negative); Influenza B2 Negative (Negative)
[2023-05-02 10:27] LABS: COVID-19 Test Negative (Negative); IDNOW Serial# 08D9AD1C
[2023-05-02] MEDS: Ondansetron ODT 4 MG TAB.RAPDIS TRANSLINGU (10:44)
[2023-05-02] MEDS: Bismuth Subsalicylate 262 MG TABLET 524 MG PO (10:44)
--- NOTE | 2023-05-02 10:52 | PC.NURSE ---
pt refused omeprazole states will take at home. Tory BALLARD aware.
[2023-05-02 11:13] LABS: Appearance Urine Hazy; Color Urine RED; Glucose Urine UA Negative (Negative); Leukocyte Esterase Urine Trace (Negative); Nitrite Urine Negative (Negative); UMIC TRIGGER UACC YES; Urine Blood Large (3+) (Negative); Urine Ketones 15 mg/dL (Negative); Urine Protein 100 (2+) mg/dL (Neg-Trace)
[2023-05-02 11:24] LABS: Bacteria Urine 1+ (None Seen); Hyaline Casts Urine 0-2 /LPF (0-2); RBC Urine >20 /HPF (0-2); UACC Culture Trigger YES
== END 2023-05-02 13:02 | disposition home or self-care (01) ==
PROVIDERS: Physician Assistant; Emergency Provider Emergency Medicine Emergency Medical Services; PCP Student in an Organized Health Care Education/Training Program
DX: K52.9 Noninfective gastroenteritis and colitis, unspecified (principal); R11.2 Nausea with vomiting, unspecified; Z20.822 Contact with and (suspected) exposure to COVID-19
CPT/HCPCS: 36415; 80053; 81001; 85025; 87086; 87502; 87635; 99283; 99284

== ENCOUNTER 2023-11-07 20:22 | Emergency (ER) | payer MEDICAID, SELFPAY ==
--- NOTE | ~2023-11-07 | XR_ITS ---
EXAMINATION: XR RIBS, RIGHT CLINICAL INFORMATION: Right rib pain. COMPARISON: None available. TECHNIQUE: 3 views of the right ribs were obtained. FINDINGS: Lungs are clear. No consolidation, pneumothorax, or pleural effusion. The cardiomediastinal silhouette and pulmonary vasculature are normal. Osseous structures are unremarkable. Multiple views of right ribs reveal no visible fracture or bony abnormality.. XR/XR ribs RT min 3V w CXR1V IMPRESSION: 1. Unremarkable chest exam. 2. Unremarkable right rib exam.
--- NOTE | ~2023-11-07 | US_ITS ---
EXAMINATION: US ABDOMEN LIMITED CLINICAL INFORMATION: Right upper quadrant pain x1 day.. COMPARISON: None available. TECHNIQUE: Real-time imaging of the right upper quadrant abdominal viscera. FINDINGS: GALLBLADDER: There is no echogenic stone, debris or wall thickening. Gallbladder wall is 0.2 cm. COMMON BILE DUCT: Normal in caliber measuring 0.2 cm in diameter. FREE FLUID: None. US/US abdomen limited IMPRESSION: Normal gallbladder with no marisol gallbladder fluid collection or bladder wall thickening.
[2023-11-07 20:37] VITALS: BP 130/63; PULSE 80; RESP 18; TEMP 37.2; O2SAT 96; BMI 29.7
[2023-11-07 20:52] LABS: MANUAL DIFF FLAG NO
[2023-11-07 20:53] LABS: Basophils Absolute Auto 0.1 X10*3/uL (0.0-0.2); Basophils Percent Auto 0.8 % (0-2); Eosinophils Absolute Auto 0.2 X10*3/uL (0.0-0.4); Eosinophils Percent Auto 1.9 % (0-4); Hematocrit 37.2 % (37.0-47.0); Hemoglobin 12.4 g/dl (12.0-16.0); Imm Gran Abs Auto 0.03 X10*3/uL (0.00-0.03); Imm Gran Pct Auto 0.3 % (0.0-0.4); Lymphocytes Absolute Auto 3.1 X10*3/uL (1.2-4.9); Lymphocytes Percent Auto 35.1 % (20-40); Mean Corpuscular HGB Conc 33.3 g/dl (31.0-35.0); Mean Platelet Volume 9.7 fL (9.4-12.3); Monocytes Absolute Auto 1.2 X10*3/uL (0.1-1.2); Monocytes Percent Auto 13.8 % (2-11); Neutrophils Absolute Auto 4.3 x10*3/uL (2.0-8.3); Neutrophils Percent Auto 48.1 % (45-73); Platelet Count 371 X10*3/uL (160-400); Red Blood Count 4.59 X10*6/uL (4.20-5.50); Red Cell Distribution Width 13.8 % (11.0-16.0); White Blood Count 8.9 X10*3/uL (4.8-10.8)
[2023-11-07 21:07] LABS: Alanine Aminotransferase 24 U/L (0-31); Albumin Level 3.8 g/dL (3.5-5.0); Alkaline Phosphatase 86 U/L (39-117); Anion Gap 13 (12-20); Aspartate Amino Transferase 22 U/L (5-31); Bilirubin Direct < 0.2 mg/dL (0.0-0.5); Bilirubin Total 0.2 mg/dL (0.0-1.0); Blood Urea Nitrogen 17 mg/dL (9-16); Calcium 9.1 mg/dL (8.4-10.2); Carbon Dioxide 25 mmol/L (22-29); Chloride 106 mmol/L (96-108); Creatinine Clr Calc Pharmacy 86.6; Estimated Glomerular Filt Rate > 60; Glucose Random 100 mg/dL (60-115); Lipase 25 U/L (8-78); Potassium 3.5 mmol/L (3.3-5.1); Sodium 140 mmol/L (135-145); Total Protein 7.6 g/dL (6.5-8.0)
--- NOTE | 2023-11-07 21:27 | ED.ABDPAIN ---
HPI - Abdominal Pain General Chief Complaint: Abdominal Pain Stated Complaint: abd pain Time Seen by Provider: 11/07/23 21:05 Source: patient and family Mode of arrival: ambulatory Limitations: no limitations History of Present Illness HPI narrative: 43 yo female with PMH of asthma, tubal ligation here with c/o R sided rib pain for the past 24 hours. She does heavy lifting at [employer] but does not remember injury. No fevers, n/v/d. No OCPs. No travel or procedures, no rash, no or URI symptoms. MD elicited complaint: other (rib pain) Pertinent past history: none Onset (ago): day(s) (1) Pain Consistency: constant Location: chest (R ribs) Severity: moderate Quality: aching Radiation: none Migration to: no migration Exacerbating factors: movement and other (palpation) Relieving factors: nothing Associated symptoms: denies other symptoms Related Data Home Medications Medication Instructions Recorded Confirmed ascorbic acid (vitamin C) 100 mg 100 mg PO DAILY 08/31/20 tablet cetirizine 10 mg tablet 10 mg PO DAILY PRN 08/31/20 cholecalciferol (vitamin D3) 25 25 mcg PO DAILY 08/31/20 mcg (1,000 unit) capsule fluticasone propionate 110 2 puff inhalation BID 08/31/20 mcg/actuation HFA aerosol inhaler (Flovent HFA) omeprazole magnesium 20 mg 20 mg PO DAILY 08/31/20 tablet,delayed release (Prilosec OTC) Previous Rx's Medication Instructions Recorded albuterol sulfate 90 mcg/actuation 2 puff PO Q4-6H PRN for wheezing 06/23/22 aerosol inhaler (ProAir HFA) #8.5 ea ondansetron 4 mg disintegrating 4 mg PO Q6-8H PRN nausea and 06/29/22 tablet vomiting #14 tabs montelukast 10 mg tablet 10 mg PO DAILY #90 tabs 11/28/22 ondansetron 4 mg disintegrating 4 mg PO Q6-8H PRN nausea and 04/26/23 tablet vomiting #7 tabs ondansetron 4 mg disintegrating 4 mg PO Q8H PRN nausea and 05/02/23 tablet vomiting #10 tabs cyclobenzaprine 10 mg tablet 10 mg PO TID PRN muscle spasm #20 11/07/23 tabs lidocaine 5 % topical patch 1 patch topical DAILY #30 ea 11/07/23 Allergies Allergy/AdvReac Type Severity Reaction Status Date / Time Penicillins Allergy Mild ITCHING, Verified 05/02/23 09:09 HIVES penicillin V Allergy Unknown Unknown Verified 05/02/23 09:09 tramadol [TRAMADOL] Allergy Unknown VOMITING Verified 05/02/23 09:09 Review of Systems Review of Systems Constitutional : No Weight loss, No Fever, No Chills ENT/Mouth : No sore throat, No Rhinorrhea Eyes: No Eye Pain, No Swelling Cardiovascular : pos rib Pain, no SOB, no Dyspnea on Exertion, No Orthopnea, No Edema, No Palpitations Respiratory : No Cough, No Sputum Gastrointestinal : no Nausea, No Vomiting, No Diarrhea, No abdominal Pain, No Hematochezia, No Melena Genitourinary : No Dysuria, No Urinary Frequency Musculoskeletal : No joint pain, No Myalgias, No Joint Swelling Skin : No Skin Lesions, No rash Neuro : No Weakness, No Numbness, No Dizziness, No Headache Psych : No Anxiety/Panic, No Depression All other systems reviewed and are negative [facility] Past Medical History Attestation statement: The following information was validated with the patient. Source: old records reviewed Medical History Asthma Gastritis Surgical History Tubal ligation status Social History Social History (Updated 11/07/23 @ 21:30 by Lilia Denny DO) Alcohol intake: never Patient Tobacco Use Status: Never used Tobacco Advance Directives: No Advance Directives Information Provided: No Physical Exam ED Vital Signs: Vital Signs - 24 hr 11/07/23 20:37 Temperature 98.9 F Pulse Rate 80 Respiratory Rate 18 Blood Pressure 130/63 Pulse Oximetry 96 Oxygen Delivery Method Room Air BMI result Body Mass Index 29.7 Appearance: Alert. Oriented X3. No acute distress. Eyes: Pupils equal, round and reactive to light. ENT: Pharynx normal. Neck: Normal inspection. Neck supple. CVS: Normal heart rate and rhythm. Pulses normal. Chest: ttp along R lower ribs no rash noted reproduces pain Respiratory: No respiratory distress. Breath sounds normal. Abdomen: Soft and nontender. Skin: Skin warm and dry. Normal skin color. Normal skin turgor. Extremities: No lower extremity edema. No calf ttp Neuro: Oriented X 3. No motor deficit. No sensory deficit. Medical Decision Making Medical Decision Making [facility] Narrative: 43 yo female with PMH of asthma, tubal ligation here with c/o R lower rib pain but no associated GI or pain without URI symptoms. Patient is PERC negative, pain is reproduceable with movements and palpation. At this time highly suspicious for MSK pain. Will obtain basic labs, US of gallbladder, rib films and start on muscle relaxer. Differential Diagnosis Differential Diagnoses: The differential diagnosis associated with the presentation includes rib pain, contusion, gallstones, MSK strain Admission/Observation Consideration of admission/observation: Escalation of care including admission/observation considered labs and US/xray normal stable for DC Lab Data [facility] Lab Attestation statement: I reviewed the patient's lab results. 11/07/23 20:44 11/07/23 20:44 Labs: Lab Results 11/07/23 11/07/23 11/07/23 Range/Units 20:44 21:15 22:08 WBC 8.9 (4.8-10.8) X10*3/uL RBC 4.59 (4.20-5.50) X10*6/uL Hgb 12.4 (12.0-16.0) g/dl Hct 37.2 (37.0-47.0) % MCV 81.0 (80.0-98.0) fL MCH 27.0 (27.0-33.0) pg MCHC 33.3 (31.0-35.0) g/dl RDW 13.8 (11.0-16.0) % Plt Count 371 (160-400) X10*3/uL MPV 9.7 (9.4-12.3) fL Immature Gran % (Auto) 0.3 (0.0-0.4) % Neut % (Auto) 48.1 (45-73) % Lymph % (Auto) 35.1 (20-40) % Lewis % (Auto) 13.8 H (2-11) % Eos % (Auto) 1.9 (0-4) % Baso % (Auto) 0.8 (0-2) % Lymph # (Auto) 3.1 (1.2-4.9) X10*3/uL Lewis # (Auto) 1.2 (0.1-1.2) X10*3/uL Eos # (Auto) 0.2 (0.0-0.4) X10*3/uL Baso # (Auto) 0.1 (0.0-0.2) X10*3/uL Abs Immat Gran (auto) 0.03 (0.00-0.03) X10*3/uL Absolute Neuts (auto) 4.3 (2.0-8.3) x10*3/uL Absolute Nucleated RBC 0.000 (0.0-0.012) X10*3/uL Nucleated RBC % (auto) 0.0 (0.0-0.2) /100WBC Sodium 140 (135-145) mmol/L Potassium 3.5 (3.3-5.1) mmol/L Chloride 106 (96-108) mmol/L Carbon Dioxide 25 (22-29) mmol/L Anion Gap 13 (12-20) BUN 17 H (9-16) mg/dL Creatinine 0.68 (0.5-1.4) mg/dL Estim Creat Clear Calc 86.6 Estimated GFR > 60 Random Glucose 100 (60-115) mg/dL Calcium 9.1 (8.4-10.2) mg/dL Total Bilirubin 0.2 (0.0-1.0) mg/dL Direct Bilirubin < 0.2 (0.0-0.5) mg/dL AST 22 (5-31) U/L ALT 24 (0-31) U/L Alkaline Phosphatase 86 (39-117) U/L Total Protein 7.6 (6.5-8.0) g/dL Albumin 3.8 (3.5-5.0) g/dL Lipase 25 (8-78) U/L Beta HCG, Quant < 2 mIU/mL Urine Color Yellow Urine Appearance Cloudy Urine pH 6.0 (5.0-9.0) Ur Specific [place] >= 1.030 H (1.005-1.025) Urine Protein Negative (Neg-Trace) mg/dL Urine Glucose (UA) Negative (Negative) mg/dL Urine Ketones Trace (Negative) mg/dL Urine Blood Negative (Negative) Urine Nitrite Negative (Negative) Ur Leukocyte Esterase Moderate (2+) H (Negative) Urine RBC 3-5 H (0-2) /HPF Urine WBC 11-20 (0-5) /HPF Ur Squamous Epith Cells >20 (0-2) /HPF Urine Bacteria 3+ (None Seen) Hyaline Casts 0-2 (0-2) /LPF Independent Interpretation I performed an independent interpretation of an: Plain X-Ray (no fx) and Ultrasound (normal GB) Radiology Impression Discussion of test interpretation with radiology: I have reviewed the radiologist's reading. Independent Historian Clinical information obtained from an independent historian. History obtained from or confirmed by: Spouse External Record Review External record reviewed: Office record Prescription Management I considered prescription management with: Other Medications Administered Discontinued Medications Generic Name Dose Route Start Last Admin Trade Name Freq PRN Reason Stop Dose Admin Cyclobenzaprine HCl 10 mg 11/07/23 21:09 11/07/23 21:48 Cyclobenzaprine Hcl 10 Mg Tablet PO 11/07/23 21:10 10 mg ONCE ONE Administration Discharge Plan Discharge Clinical Impression: Chest wall muscle strain Qualifiers: Encounter type: initial encounter Qualified Code(s): S29.011A - Strain of muscle and tendon of front wall of thorax, initial encounter Patient Disposition: Home, Self-Care Instructions: Muscle Strain (ED), Chest Wall Pain (ED) Additional Instructions: labs, xray and ultrasound of gallbladder normal return for worsening symptoms, pain, fevers or any other concerns Prescriptions: New cyclobenzaprine 10 mg tablet 10 mg PO TID PRN (Reason: muscle spasm) Qty: 20 0RF lidocaine 5 % adhesive patch,medicated 1 patch topical DAILY Qty: 30 0RF Rx Instructions: leave on most painful area for up to 12 hrs No Action albuterol sulfate [ProAir HFA] 90 mcg/actuation HFA aerosol inhaler 2 puff PO Q4-6H PRN (Reason: for wheezing) Qty: 8.5 6RF montelukast 10 mg tablet 10 mg PO DAILY Qty: 90 2RF ondansetron 4 mg tablet,disintegrating 4 mg PO Q6-8H PRN (Reason: nausea and vomiting) Qty: 14 0RF ondansetron 4 mg tablet,disintegrating 4 mg PO Q6-8H PRN (Reason: nausea and vomiting) Qty: 7 0RF ondansetron 4 mg tablet,disintegrating 4 mg PO Q8H PRN (Reason: nausea and vomiting) Qty: 10 0RF cetirizine 10 mg tablet 10 mg PO DAILY PRN Flovent HFA 110 mcg/actuation HFA aerosol inhaler 2 puff inhalation BID omeprazole magnesium [Prilosec OTC] 20 mg tablet,delayed release (DR/EC) 20 mg PO DAILY cholecalciferol (vitamin D3) 25 mcg (1,000 unit) capsule 25 mcg PO DAILY ascorbic acid (vitamin C) 100 mg tablet 100 mg PO DAILY Stand Alone Forms: Work/School Release
[2023-11-07 21:43] LABS: HCG Quantitative < 2 mIU/mL
[2023-11-07] MEDS: Cyclobenzaprine HCl 10 MG TABLET PO (21:48)
[2023-11-07 22:25] LABS: Appearance Urine Cloudy; Color Urine Yellow; Glucose Urine UA Negative (Negative); Leukocyte Esterase Urine Moderate (2+) (Negative); Nitrite Urine Negative (Negative); Specific Gravity - Urine >= 1.030 (1.005-1.025); UMIC TRIGGER UACC YES; Urine Blood Negative (Negative); Urine Ketones Trace mg/dL (Negative); Urine Protein Negative (Neg-Trace)
[2023-11-07 22:36] LABS: Bacteria Urine 3+ (None Seen); Hyaline Casts Urine 0-2 /LPF (0-2); Squamous Epithelial Cell Urine >20 /HPF (0-2); UACC Culture Trigger YES
[2023-11-07 23:19] VITALS: BP 117/75; PULSE 70; RESP 14; TEMP 36.5; O2SAT 97
[2023-11-07 23:36] LABS: Influenza A PCR NEGATIVE (Negative); Influenza B PCR NEGATIVE (Negative); Resp Syncy Virus RNA Qual PCR NEGATIVE (Negative); SARS COV2 PCR INHOUSE NEGATIVE (Negative)
== END 2023-11-07 23:19 | disposition home or self-care (01) ==
PROVIDERS: Physician Assistant Medical; Emergency Provider Emergency Medicine; PCP Student in an Organized Health Care Education/Training Program
DX: S29.011A Strain of muscle and tendon of front wall of thorax, initial encounter (principal); J45.909 Unspecified asthma, uncomplicated; Z11.52 Encounter for screening for COVID-19; Z20.828 Contact with and (suspected) exposure to other viral communicable diseases; X58.XXXA Exposure to other specified factors, initial encounter; Y93.9 Activity, unspecified; Y92.9 Unspecified place or not applicable; Y99.9 Unspecified external cause status
CPT/HCPCS: 0241U; 36415; 71101; 76705; 80053; 81001; 82248; 83690; 84702; 85025; 87086; 99284

== ENCOUNTER 2023-11-11 14:07 | Outpatient (AMB) | payer MEDICAID, SELFPAY ==
--- NOTE | 2023-11-11 14:15 | MHC.OFFVIS ---
Intake Vital Signs 11/11/23 14:19 Height 4 ft 11 in Weight 144 lb BMI 29.1 BP 119/66 Blood Pressure Location Lt brachial Position Sitting Pulse 95 Intake Visit Reasons: Colonoscopy screening Intake Note: Patient new consult for 1st pre colonoscopy screening. Patient cc: acid reflex on and off. Director Diabetes Required: No Accompanied by: Self / Same As Patient Allergies Penicillins Allergy (Mild, Verified 11/11/23 14:15) ITCHING, HIVES penicillin V Allergy (Unknown, Verified 11/11/23 14:15) Unknown tramadol [TRAMADOL] Allergy (Unknown, Verified 11/11/23 14:15) VOMITING Medication List - Last Reconciled 11/11/23 by Alejandra Balbuena PA-C albuterol sulfate 90 mcg/actuation (ProAir HFA) 2 puffs PO Q4-6H PRN ascorbic acid (vitamin C) 100 mg PO DAILY cetirizine 10 mg PO DAILY PRN cholecalciferol (vitamin D3) 25 mcg PO DAILY cyclobenzaprine 10 mg PO TID PRN fluticasone propionate 110 mcg/actuation (Flovent HFA) 2 puffs inhalation BID lidocaine 5% 1 patch topical DAILY montelukast 10 mg PO DAILY omeprazole magnesium (Prilosec OTC) 20 mg PO DAILY HPI HPI Comments History of Present Illness Details 43-year-old female referred for index screening colonoscopy Normal bowel pattern Occasion has breakthrough acid reflux- intermittent nausea-unable to identify anything specific Asthma well controlled-see pulmonary- no issues No nausea, vomiting hematemesis, hematochezia fever chills No known family history of colorectal cancer PFSH Medical History (Updated 11/11/23 @ 14:24 by Alejandra Balbuena PA-C) Asthma Gastritis Surgical History Tubal ligation status Social History Alcohol intake: never Patient Tobacco Use Status: Never used Tobacco Review of Systems Const All systems reviewed & are unremarkable except as noted in HPI and below Card Denies chest pain and Denies dyspnea Resp Denies dyspnea Musc Reports myalgias (pulled muscle) Physical Exam Vital Signs: Last Vital Signs Pulse 95 11/11/23 14:19 BP 119/66 11/11/23 14:19 BMI result Body Mass Index 29.1 Const General: cooperative, healthy appearing and comfortable Orientation/consciousness: patient oriented x3 Limitations: no limitations Eyes Sclerae: sclerae normal Resp Effort & Inspection: normal respiratory effort and able to speak in complete sentences Auscultation: clear to auscultation bilaterally Cardio Rate: regular rate (Nov) Rhythm: regular rhythm Heart sounds: S1 normal heart sound present and S2 normal heart sound present GI Palpation (GI): Soft to palpation and nontender Auscultation: normal bowel sounds Neuro General: patient oriented x3 Extrem General: Yes full ROM Psych Appearance: grossly normal and well kempt Mental Status: mental status grossly normal Speech and movement: Normal speech and movement present Affect: normal affect Attitude: cooperative Thought process: Normal thought process present Thought content: Normal thought content present Assessment & Plan Assessment & Plan (1) Moderate persistent asthma: Code(s): J45.40 - Moderate persistent asthma, uncomplicated (2) Gastritis: Code(s): K29.70 - Gastritis, unspecified, without bleeding Plan: EGD r/o pud, nonulcer dyspepsia, esophagitis other endoscopic findings to account for some (3) Encounter for screening colonoscopy: Code(s): Z12.11 - Encounter for screening for malignant neoplasm of colon Plan: Screening colonoscopy Plan EGD/ colon MG gatorade- Asthma- well controlled Orders: Orders EGD/[place] [facility]bo - GI Use Only 11/11/23 Medications: New bisacodyl (Dulcolax (bisacodyl)) Day before procedure @ 12 noon Take 4 tablets by mouth followed by large glass of water 20 mg (4 x 5 mg) PO ONCE PRN 4 tabs 0RF colonoscopy prep 1 day Z12.11 - Encounter for screening for malignant neoplasm of colon polyethylene glycol 3350 (Miralax) Take as directed by mouth the day before your procedure. 238 grams PO ONCE PRN 238 grams 0RF laxative effect 1 day Patient Instructions: EGD/ colonoscopy MG prep, reviewed literature reflux precautions continue ppi Discussed procedures, rare risks need for escort Encouraged to call questions or concerns Coding Level of Care Code Est Pt Level 3 (71631) Diagnoses Moderate persistent asthma J45.40 Gastritis K29.70 Encounter for screening colonoscopy Z12.11 Time Spent (min) 30
[2023-11-11 14:19] VITALS: BP 119/66; PULSE 95; BMI 29.1
== END 2023-11-11 14:41 | disposition home or self-care (01) ==
PROVIDERS: PCP Student in an Organized Health Care Education/Training Program; Visit Provider Physician Assistant
DX: J45.40 Moderate persistent asthma, uncomplicated (principal); K29.70 Gastritis, unspecified, without bleeding; Z12.11 Encounter for screening for malignant neoplasm of colon
CPT/HCPCS: 99213

== ENCOUNTER → 2023-11-11 14:07 | Outpatient (BNVA) | payer MEDICAID, SELFPAY | PROVIDERS: PCP Student in an Organized Health Care Education/Training Program; Visit Provider Physician Assistant | DX: Z01.818 Encounter for other preprocedural examination (principal); K21.9 Gastro-esophageal reflux disease without esophagitis; K29.70 Gastritis, unspecified, without bleeding | CPT/HCPCS: 99212 ==

== ENCOUNTER 2024-02-29 | Outpatient (REF) | payer MEDICAID, SELFPAY | END 2024-02-29 00:01 | disposition home or self-care (01) | LOC: CF | PROVIDERS: Visit Provider Internal Medicine Pulmonary Disease | DX: J45.40 Moderate persistent asthma, uncomplicated (principal); Z91.09 Other allergy status, other than to drugs and biological substances | CPT/HCPCS: 99212 ==

== ENCOUNTER 2024-02-29 15:19 | Outpatient (AMB) | payer MEDICAID, SELFPAY ==
[2024-02-29 15:22] VITALS: BP 118/78; PULSE 95; O2SAT 95; BMI 30.1
--- NOTE | 2024-02-29 15:22 | MHC.OFFVIS ---
Vital Signs 02/29/24 15:22 Height 4 ft 11 in Weight 148 lb 12.992 oz BMI 30.1 BP 118/78 Blood Pressure Location Rt brachial Position Sitting Pulse 95 Pulse Source Doppler Pulse Oximetry (%) 95 Oxygen Delivery Method Room Air Intake Visit Reasons: Asthma Allergies Penicillins Allergy (Mild, Verified 02/29/24 15:26) ITCHING, HIVES penicillin V Allergy (Unknown, Verified 02/29/24 15:26) Unknown tramadol [TRAMADOL] Allergy (Unknown, Verified 02/29/24 15:26) VOMITING HPI HPI Asthma: Details: 42-year-old lady, lifetime nonsmoker, followed for mild persistent cough variant asthma and environmental allergies.? She continues to use Flovent 110 and albuterol MDI with now suboptimal control of her symptoms. Though, she denies acute exacerbations. [facility] Medical History (Updated 11/11/23 @ 14:24 by Alejandra Balbuena PA-C) Asthma Gastritis Surgical History Tubal ligation status Social History Alcohol intake: never Patient Tobacco Use Status: Never used Tobacco Review of Systems Const Denies daytime sleepiness, Denies excessive sweating, Denies fatigue, Denies fever(s), Denies lethargy, Denies malaise, Denies night sweats, Denies snoring and Denies weight loss Eyes Denies blurry vision and Denies itchy eyes ENT Denies nasal congestion, Denies post nasal drip, Denies sinus pain, Denies sinus pressure and Denies other ( Thrush) Card Denies chest pain, Denies pedal edema, Denies dyspnea, Denies orthopnea and Denies paroxysmal nocturnal dyspnea Resp Denies cough, Denies hemoptysis, Denies excessive phlegm production, Denies dyspnea, Denies snoring and Denies wheezing GI Denies abdominal pain and Denies heartburn Musc Denies myalgias, Denies arthralgias and Denies joint swelling Skin/Breast Denies rash Neuro Denies memory loss and Denies seizure-like activity Psych Denies abnormal sleep pattern, Denies anxiety and Denies memory loss Endo Denies excessive sweating, Denies fatigue and Denies heat intolerance Yakov/Lymph Denies easy bruising Aller/Immun Denies itchy eyes, Denies seasonal rhinorrhea and Denies wheezing Physical Exam Vital Signs: Last Vital Signs Pulse 95 02/29/24 15:22 BP 118/78 02/29/24 15:22 Pulse Ox 95 02/29/24 15:22 Oxygen Delivery Method Room Air 02/29/24 15:22 BMI result Body Mass Index 30.1 Const General: no acute distress and alert Nutritional Appearance: not obese Orientation/consciousness: Other orientation findings ( oriented) HEENT Head: Yes atraumatic Eyes General: appearance normal, both eyes and all related structures Sclerae: sclerae normal EOM: EOMs intact bilaterally Neck Neck: Yes supple Lymphatic: no lymphadenopathy noted Resp Effort & Inspection: normal respiratory effort and no use of accessory muscles Auscultation: clear to auscultation bilaterally Cardio Rate: regular rate Rhythm: regular rhythm Heart sounds: no gallops, no murmurs and no rubs Skin General skin exam: other ( warm) Extrem General: No clubbing, No cyanosis and No edema Assessment & Plan Assessment & Plan (1) Moderate persistent asthma: Code(s): J45.40 - Moderate persistent asthma, uncomplicated Category: Medical Plan: Suboptimally controlled on Flovent, will switch to Breo. Continue albuterol MDI. (2) Environmental allergies: Code(s): Z91.09 - Other allergy status, other than to drugs and biological substances Category: Medical Plan: Reasonable control on Singulair and as needed Zyrtec. Continue current regimen. Medications: New fluticasone furoate-vilanterol 200-25 mcg/dose (Breo Ellipta) 1 inh inhalation DAILY 1 ea 6RF 30 days Coding Level of Care Code Est Pt Level 4 (84569) Diagnoses Moderate persistent asthma J45.40 Environmental allergies Z91.09
== END 2024-02-29 15:55 | disposition home or self-care (01) ==
PROVIDERS: PCP Internal Medicine; Visit Provider Internal Medicine Pulmonary Disease
DX: J45.40 Moderate persistent asthma, uncomplicated (principal); Z91.09 Other allergy status, other than to drugs and biological substances
CPT/HCPCS: 99214

== ENCOUNTER 2024-03-08 08:47 | Day surgery (SDC) | payer MEDICAID, SELFPAY ==
[2024-03-08 10:10] VITALS: BP 110/71; PULSE 95; RESP 16; TEMP 37; O2SAT 98; BMI 29.5
[2024-03-08 10:20] LABS: UPreg QC Valid YES; Urine Pregnancy NEGATIVE (NEGATIVE)
[2024-03-08] MEDS: Lactated Ringers 1,000 ML 100 ML IVCONT (10:24)
--- NOTE | 2024-03-08 11:04 | MHC.SHP ---
Pre-Procedural Eval Section A - 24 Hr Update-Section A only Date of Service: 03/08/24 Section B - Complete if H&P > 30 days Chief Complaint: Encounter for screening for malignant neoplasm of Details of Present Illness: gastritis history Relevant Family History (Specify if Yes): No Relevant Social History: None Present Medications: see Short Stay Collaborative assessment Medical History: Significant History (Asthma Gastritis) History of Previous Operations: Relevant previous surgery/procedure and date(s) (Tubal ligation status) Allergies: Allergies Allergy/AdvReac Type Severity Reaction Status Date / Time Penicillins Allergy Mild ITCHING, Verified 02/29/24 15:26 HIVES penicillin V Allergy Unknown Unknown Verified 02/29/24 15:26 tramadol [TRAMADOL] Allergy Unknown VOMITING Verified 02/29/24 15:26 Review of Systems Sugical H&P ROS: Negative: Constitution, Cardiovascular, Respiratory, Neurological, Psychiatric, Hem-Onc, Allergic/Immunologic, Gastrointestinal, Genitourinary, Musculoskeletal, Integumentary, Endocrine and Eyes/Ears/Nose/Throat Exam Surgical H&P Exam: Normal: HEENT, Normal: Heart, Normal: Lungs, Normal: Extremities, Normal: Abdomen, Normal: Skin and Normal: Neurological Plan Diagnosis/Plan: Unchanged I have reviewed the history and physical and performed a pertinent physical examination on my patient. No changes have occurred unless specified. Time Spent With Patient Time: Total time managing care of this patient today ____ minutes.
--- NOTE | 2024-03-08 11:05 | HO.ANESPROP2 ---
Documented by User: Gabby Pretty NP 03/07/24 09:18 HPI - Anesthesia Eval Consult details Narrative: 43yo F for Upper Endoscopy and Colonoscopy PMFSH Active Problems Active Problems: All Active Problems Gastritis (Acute) Encounter for screening colonoscopy (Acute) Moderate persistent asthma (Acute) Environmental allergies (Acute) Past Medical History Medical History (Updated 11/11/23 @ 14:24 by Alejandra Balbuena PA-C) Asthma Gastritis Surgical History Surgical History (Updated 03/08/24 @ 10:10 by Vita Canales) H/O tubal ligation Social History Social History Alcohol intake: never Patient Tobacco Use Status: Never used Tobacco Use of substances other than those prescribed or required for medical reasons: No Are you DNR?: No Advance Directives: No Advance Directives Information Provided: Yes Meds Allergies Allergy/AdvReac Type Severity Reaction Status Date / Time Penicillins Allergy Mild ITCHING, Verified 02/29/24 15:26 HIVES penicillin V Allergy Unknown Unknown Verified 02/29/24 15:26 tramadol [TRAMADOL] Allergy Unknown VOMITING Verified 02/29/24 15:26 Home Medications ?Medication ?Instructions ?Recorded ?Confirmed ?Last Taken ?Type ascorbic acid (vitamin C) 100 mg 100 mg PO DAILY 08/31/20 11/11/23 Unknown History tablet cetirizine 10 mg tablet 10 mg PO DAILY PRN 08/31/20 11/11/23 Unknown History cholecalciferol (vitamin D3) 25 25 mcg PO DAILY 08/31/20 11/11/23 Unknown History mcg (1,000 unit) capsule omeprazole magnesium 20 mg 20 mg PO DAILY 08/31/20 11/11/23 Unknown History tablet,delayed release (Prilosec OTC) [id number] 3.5 4 drp otic (ears) QID 02/29/24 Unknown History mg/mL-10,000 unit/mL-1 % ear solution Assessment and Plan Assessment Anesthesia Assessment: Chart Reviewed Documented by User: Cintia Obrien, DO 03/08/24 11:08 [facility] Past Medical History Medical History (Updated 11/11/23 @ 14:24 by Alejandra Balbuena PA-C) Asthma Gastritis Family History Family history of problems with anesthesia: No Surgical History Surgical History (Updated 03/08/24 @ 10:10 by Vita Canales) H/O tubal ligation History of Problems with Anesthesia: No Social History Social History Alcohol intake: never Patient Tobacco Use Status: Never used Tobacco Use of substances other than those prescribed or required for medical reasons: No Are you DNR?: No Advance Directives: No Advance Directives Information Provided: Yes Meds Allergies Allergy/AdvReac Type Severity Reaction Status Date / Time Penicillins Allergy Mild ITCHING, Verified 02/29/24 15:26 HIVES penicillin V Allergy Unknown Unknown Verified 02/29/24 15:26 tramadol [TRAMADOL] Allergy Unknown VOMITING Verified 02/29/24 15:26 Home Medications ?Medication ?Instructions ?Recorded ?Confirmed ?Last Taken ?Type ascorbic acid (vitamin C) 100 mg 100 mg PO DAILY 08/31/20 11/11/23 Unknown History tablet cetirizine 10 mg tablet 10 mg PO DAILY PRN 08/31/20 11/11/23 Unknown History cholecalciferol (vitamin D3) 25 25 mcg PO DAILY 08/31/20 11/11/23 Unknown History mcg (1,000 unit) capsule omeprazole magnesium 20 mg 20 mg PO DAILY 08/31/20 11/11/23 Unknown History tablet,delayed release (Prilosec OTC) [id number]-[id number] 3.5 4 drp otic (ears) QID 02/29/24 Unknown History mg/mL-10,000 unit/mL-1 % ear solution Exam Exam Date and Time: March 08, 2024 1105 Height,Weight and Vital Signs: Height 4 ft 11 in Weight 66.224 kg Vital Signs Temperature 98.6 F 03/08/24 10:10 Pulse Rate 95 03/08/24 10:10 Respiratory Rate 16 03/08/24 10:10 Blood Pressure 110/71 03/08/24 10:10 Pulse Oximetry 98 03/08/24 10:10 Oxygen Delivery Method Room Air 03/08/24 10:10 Temperature 98.6 F 03/08/24 10:10 Pulse Rate 95 03/08/24 10:10 Respiratory Rate 16 03/08/24 10:10 Blood Pressure 110/71 03/08/24 10:10 Pulse Oximetry 98 03/08/24 10:10 Oxygen Delivery Method Room Air 03/08/24 10:10 Airway Mallampati Class: I TM Dist: >3cm Neck ROM: Full Loose/Missing/Broken Teeth: No (patient reports no loose or broken teeth) Heart: S1S2 Lungs: CTAB Assessment and Plan Assessment Anesthesia Assessment: Anesthesia Plan Discussed and Chart Reviewed Final Anesthetic Review Family History of Problems with Anesthesia: No History of Problems with Anesthesia: No NPO: Yes ASA Class: II Final Preanesthetic Review: No Changes in Pt Med Stat, Meds/Allgs Chart Reviewed, Consent Obtained/Reviewed and Anes Risks/Benef Reviewed Patient Risk: Low Procedure Risk: Intermediate Anesthetic Plan Anesthetic Plan: GA and Agree w/ Assess. and Plan Disposition: Standard PACU
--- NOTE | 2024-03-08 11:47 | HO.OPN-COLON ---
Colonoscopy Operative Note Operative Note Date of Service: 03/08/24 Narrative: Operative Information Procedure Description: EGD, Colonoscopy Indication: GERd, screening Anesthesia: MAC FLEXIBLE TRANSORAL UPPER GASTROINTESTINAL ENDOSCOPY AND COLONOSCOPY PROCEDURE NOTE UPPER ENDOSCOPY Consent: Indications for the procedure and potential complications of bleeding, perforation, reaction to medications and missed diagnosis were discussed with the patient and informed consent was obtained. Instrument: Olympus GIF H 190 J mid size upper endoscope Monitoring: Vital signs and clinical assessment, continuous EKG monitoring, Pulse oximetry, Carbon Dioxide monitoring and blood pressure monitoring were done throughout the procedure. Procedure: The patient was placed in the left lateral decubitis position and pre-procedure medications were administered and a bite block was placed. The endoscope was inserted into the mouth and advanced under direct vision to the third part of duodenum. A careful inspection was made as the upper endoscope was withdrawn including a retroflexed examination of the proximal stomach; Findings and interventions are described below. Findings: Larynx:normal Esophagus: GE junction at 40 cm, diaphragm hiatus at 40 cm, bx taken from GEj and distal esophagus Stomach: streaky erythema at antrum. Biopsies were obtained. Grade 2 flap valve on retroflexed examination of the cardia. Duodenum: patchy erythema, bx taken Intervention: Biopsies as noted above, COLONOSCOPY Instrument: Olympus variable stiffness pediatric scope 190L Colonoscopy Monitoring: Vital signs and clinical assessment, continuous EKG monitoring, Pulse oximetry, Carbon Dioxide monitoring and blood pressure monitoring were done throughout the procedure. Colon withdrawal time was 8 minutes. Procedure: The patient was placed in the left lateral decubitis position and pre-procedure medications were administered. After a digital rectal examination of the ano-rectum, the video colonoscope was inserted into the rectum and advanced through the colon to the cecum/TI. The colonoscope was slowly withdrawn in a retrograde panoramic fashion and the colon mucosa was carefully examined including a retroflexed view of the rectum. Findings and interventions are described below. Procedure Difficulty:moderate Findings: Terminal Ileum-normal Cecum:normal Ascending Colon: normal Transverse Colon -normal Descending Colon:normal Sigmoid Colon: normal Rectum: Retroflexion with small internal hemorrhoids, grade I Anorectum - normal Colon preparation: [place] Bowel Preparation Scale Right colon; 1-2 Transverse colon: 2 Left colon; 1-2 (0 = Unprepared colon segment with mucosa not seen due to solid stool that cannot be cleared. 1 = Portion of mucosa of the colon segment seen, but other areas of the colon segment not well seen due to staining, residual stool and/or opaque liquid. 2 = Minor amount of residual staining, small fragments of stool and/or opaque liquid, but mucosa of colon segment seen well. 3 = Entire mucosa of colon segment seen well with no residual staining, small fragments of stool or opaque liquid) Impression and Post Procedure Diagnosis: Endoscopy Findings: gastritis Colonoscopy Findings: internal hemorrhoids Plan: Await Pathology results Repeat Colonoscopy in 1 year due to fair prep in some areas or earlier if clinically indicated High fiber diet leaflet avoid straining at stool, epsom salts and sitz bath, anusol supps or cream GERD precautions Above findings were reviewed with the patient and relevant handouts were provided if indicated.
[2024-03-08 11:52] VITALS: BP 95/56; PULSE 93; RESP 16; TEMP 36.3; O2SAT 96
[2024-03-08 12:07] VITALS: BP 115/72; PULSE 72; RESP 16; O2SAT 98
[2024-03-08 12:22] VITALS: BP 117/80; PULSE 82; RESP 16; TEMP 36.7; O2SAT 97
== END 2024-03-08 13:22 | disposition home or self-care (01) ==
PROVIDERS: Anesthesiology; PCP Internal Medicine; Visit Provider Internal Medicine Gastroenterology
PROC: (CPT 45378; principal; 2024-03-08 11:50)
DX: Z12.11 Encounter for screening for malignant neoplasm of colon (principal); K64.0 First degree hemorrhoids; K21.9 Gastro-esophageal reflux disease without esophagitis; K31.9 Disease of stomach and duodenum, unspecified; K29.70 Gastritis, unspecified, without bleeding; K44.9 Diaphragmatic hernia without obstruction or gangrene; J45.40 Moderate persistent asthma, uncomplicated; Z79.51 Long term (current) use of inhaled steroids; Z79.899 Other long term (current) drug therapy; Z88.0 Allergy status to penicillin; Z88.5 Allergy status to narcotic agent; Z98.51 Tubal ligation status
CPT/HCPCS: 45378; 43239; 81025; 88305; 88313; 88342; J1596; J2704

== ENCOUNTER → 2024-03-08 08:47 | Outpatient (BNV) | payer MEDICAID, SELFPAY | PROVIDERS: PCP Internal Medicine; Visit Provider Internal Medicine Gastroenterology | DX: Z12.11 Encounter for screening for malignant neoplasm of colon (principal); K64.0 First degree hemorrhoids; K21.9 Gastro-esophageal reflux disease without esophagitis; K29.80 Duodenitis without bleeding; K29.70 Gastritis, unspecified, without bleeding | CPT/HCPCS: 43239; 45378 ==

== ENCOUNTER 2024-03-25 15:28 | Outpatient (REF) | payer MEDICAID, SELFPAY ==
--- NOTE | ~2024-03-25 | MM_ITS ---
EXAMINATION: MM SCREENING DIGITAL BREAST TOMOSYNTHESIS, BILATERAL CLINICAL INFORMATION: Screening. Asymptomatic. COMPARISON: Mammography: This study is compared with prior exams dating back to 2019. TECHNIQUE: Digital breast tomosynthesis is performed in both the craniocaudal and mediolateral oblique views along with computer-aided detection (CAD). Synthesized 2D images are generated from the tomosynthesis. FINDINGS: The breasts are heterogeneously dense, which may obscure small masses (ACR BI-RADS breast composition Category c). There are no significant masses, abnormal calcifications, or other abnormalities. MM/MM tomosynthesis screening BI IMPRESSION: No mammographic evidence of malignancy. ASSESSMENT: BI-RADS BI-RADS 1 - Negative RECOMMENDATION: Routine annual mammography screening. 1 year F/U This examination should not preclude the clinical evaluation of a suspicious palpable abnormality. This patient's information was entered into a reminder system with a target due date for their next mammogram. Electronically signed by: Kierra Reynolds MD 04/23/2024 04:01 PM EDT
== END 2024-03-25 15:29 | disposition home or self-care (01) ==
LOC: HO.MAMMO 15:28
PROVIDERS: PCP Internal Medicine; Visit Provider Internal Medicine
DX: Z12.31 Encounter for screening mammogram for malignant neoplasm of breast (principal)
CPT/HCPCS: 77063; 77067

== ENCOUNTER → 2024-03-25 15:45 | Outpatient (BNV) | payer MEDICAID, SELFPAY | PROVIDERS: PCP Internal Medicine; Visit Provider Radiology Diagnostic Radiology | DX: Z12.31 Encounter for screening mammogram for malignant neoplasm of breast (principal) | CPT/HCPCS: 77063; 77067 ==

== ENCOUNTER 2024-04-15 15:31 | Outpatient (REF) | payer MEDICAID, SELFPAY ==
[2024-04-19 12:47] LABS: H Pylori Breath Test Negative (Negative)
== END 2024-04-18 15:02 | disposition home or self-care (01) ==
LOC: HO.LNP 15:31
PROVIDERS: PCP Internal Medicine; Visit Provider Internal Medicine Gastroenterology
DX: Z11.0 Encounter for screening for intestinal infectious diseases (principal)
CPT/HCPCS: 83013; 99211

== ENCOUNTER 2024-04-18 15:01 | Outpatient (AMB) | payer MEDICAID, SELFPAY ==
--- NOTE | 2024-04-18 15:14 | AM.OFFVISNUR ---
Intake Visit Reasons: hpylori Allergies Penicillins Allergy (Mild, Verified 02/29/24 15:26) ITCHING, HIVES penicillin V Allergy (Unknown, Verified 02/29/24 15:26) Unknown tramadol [TRAMADOL] Allergy (Unknown, Verified 02/29/24 15:26) VOMITING Nursing Note Patient presents for collection of H Pylori breath test. Patient has been fasting for 1 hour (nothing to eat, drink, no chewing gum or smoking) has not taken any antacid medication for at least 2 weeks and has no allergies to artificial sweeteners.?? Assessment & Plan Assessment & Plan (1) Gastritis: Code(s): K29.70 - Gastritis, unspecified, without bleeding Category: Medical Plan Patient presents for collection of H Pylori breath test. Patient has been fasting for 1 hour (nothing to eat, drink, no chewing gum or smoking) has not taken any antacid medication for at least 2 weeks and has no allergies to artificial sweeteners.???This test checks for an overgrowth of bacteria in your stomach. We all have bacteria but some may have more than others. It is treatable. if the test comes back negative there is nothing else to do. If the test result is positive we will treat you with 2 antibiotics and a medication to decrease the acid in your stomach (PPI) for 2 weeks. Two weeks after you have completed the treatment we will retest you to make sure the overgrowth has resolved. Orders: Orders H Pylori Breath Test Today Patient Instructions: Process for specimen collection and reason for testing was explained to the patient. Specimen collection. Patient instructed to take a deep breath and then exhale into the blue bag, filling it up as much as possible. Patient instructed to drink a mixture of water and the artificial sweetener with a straw. A 15 minute wait period was observed. Patient instructed to take a deep breath and then exhale into the pink bag, filling it up as much as possible.??
== END 2024-04-18 15:26 | disposition home or self-care (01) ==
PROVIDERS: PCP Internal Medicine; Referring Provider Internal Medicine; Visit Provider Internal Medicine Gastroenterology
DX: K29.70 Gastritis, unspecified, without bleeding (principal)

== ENCOUNTER 2024-06-14 15:37 | Outpatient (REF) | payer MEDICAID, SELFPAY ==
[2024-06-14 18:20] LABS: Hematocrit 39.5 % (37.0-47.0); Hemoglobin 13.1 g/dl (12.0-16.0); Iron 36 mcg/dL (30-160); Magnesium 1.9 mg/dL (1.6-2.6); Mean Corpuscular HGB Conc 33.2 g/dl (31.0-35.0); Mean Corpuscular Hemoglobin 28.1 pg (27.0-33.0); Mean Corpuscular Volume 84.8 fL (80.0-98.0); Mean Platelet Volume 10.2 fL (9.4-12.3); Percent Iron Saturation 12 % (15-50); Platelet Count 397 X10*3/uL (160-400); Red Blood Count 4.66 X10*6/uL (4.20-5.50); Red Cell Distribution Width 14.7 % (11.0-16.0); Total Iron Binding Capacity 308 mcg/dL (228-428); Unsaturated Iron Binding 272 ug/dL; White Blood Count 8.5 X10*3/uL (4.8-10.8)
[2024-06-14 18:34] LABS: Ferritin 26 ng/mL (10-250)
== END 2024-06-14 15:38 | disposition home or self-care (01) ==
LOC: HO.CHCLDS 15:37
PROVIDERS: Visit Provider Internal Medicine
DX: R53.83 Other fatigue (principal)
CPT/HCPCS: 36415; 82728; 83540; 83735; 85027

== ENCOUNTER 2025-02-01 09:27 | Outpatient (REF) | payer MEDICAID, SELFPAY ==
[2025-02-01 14:31] LABS: MANUAL DIFF FLAG NO
[2025-02-01 14:34] LABS: Basophils Absolute Auto 0.1 X10*3/uL (0.0-0.2); Basophils Percent Auto 0.9 % (0-2); Eosinophils Absolute Auto 0.1 X10*3/uL (0.0-0.4); Eosinophils Percent Auto 1.8 % (0-4); Hematocrit 40.2 % (37.0-47.0); Hemoglobin 13.2 g/dl (12.0-16.0); Imm Gran Abs Auto 0.01 X10*3/uL (0.00-0.03); Imm Gran Pct Auto 0.1 % (0.0-0.4); Lymphocytes Percent Auto 29.7 % (20-40); Mean Corpuscular HGB Conc 32.8 g/dl (31.0-35.0); Mean Corpuscular Volume 85.2 fL (80.0-98.0); Mean Platelet Volume 10.4 fL (9.4-12.3); Monocytes Absolute Auto 0.9 X10*3/uL (0.1-1.2); Monocytes Percent Auto 12.7 % (2-11); Neutrophils Absolute Auto 3.8 x10*3/uL (2.0-8.3); Neutrophils Percent Auto 54.8 % (45-73); Platelet Count 363 X10*3/uL (160-400); Red Blood Count 4.72 X10*6/uL (4.20-5.50); Red Cell Distribution Width 14.1 % (11.0-16.0); White Blood Count 6.8 X10*3/uL (4.8-10.8)
[2025-02-01 14:56] LABS: Alanine Aminotransferase 28 U/L (0-31); Alkaline Phosphatase 77 U/L (39-117); Anion Gap 11 (12-20); Aspartate Amino Transferase 36 U/L (5-31); Bilirubin Total 0.4 mg/dL (0.0-1.0); Blood Urea Nitrogen 11 mg/dL (9-16); Calcium 9.4 mg/dL (8.4-10.2); Carbon Dioxide 26 mmol/L (22-29); Chloride 107 mmol/L (96-108); Cholesterol 236 mg/dL (<200); Estimated Glomerular Filt Rate > 60; Glucose Random 86 mg/dL (60-115); HDL Cholesterol 46 mg/dL (>40); Iron 74 mcg/dL (30-160); LDL Cholesterol Calculated 163 mg/dL (<100); Percent Iron Saturation 26 % (15-50); Sodium 140 mmol/L (135-145); Total Iron Binding Capacity 289 mcg/dL (228-428); Total Protein 7.2 g/dL (6.5-8.0); Triglycerides 136 mg/dL (<150); Unsaturated Iron Binding 215 ug/dL
[2025-02-01 15:08] LABS: Ferritin 51 ng/mL (10-250)
== END 2025-02-01 09:28 | disposition home or self-care (01) ==
LOC: HO.CHCLDS 09:27
PROVIDERS: Visit Provider Internal Medicine
DX: Z00.00 Encounter for general adult medical examination without abnormal findings (principal)
CPT/HCPCS: 36415; 80053; 80061; 82728; 83540; 85025

== ENCOUNTER 2025-02-03 08:35 | Outpatient (REF) | payer MEDICAID, SELFPAY ==
--- OUTSIDE RECORDS SUMMARY | 2025-02-03 08:45 | XMS_ITS | Encounter Summary ---
Author Organization [employer] Address [address] [place] [id number] Care Team Providers Care Powerhouse Operator Name Role Phone Lani Peoples MD Primary Care Provider [phone] Encounter Details Date Type Department Care Team (Late Contact Info) Description 03/18/2023 Orders Only [facility] [address] [place] [address] Nayely Alvarez LPN Social History Tobacco Use Types Packs/Day Years Used Date Smoking Tobacco: Never Smokeless Tobacco: Never Alcohol Use Standard Drinks/Week Comments Never 0 (1 standard drink = 0.6 oz pur e alcohol) Depression Answer Date Recorded Patient Health Questionnaire-9 Score 1 09/08/2022 Depression Answer Date Recorded Patient Health Questionnaire-2 Score 0 09/08/2022 Comments Unknown Sex and Gender Information Value Date Recorded Sex Assigned at Female 06/09/2022 10:21 AM EDT Legal Sex Female 10:21 AM EDT Gender Identity Female 06/09/2022 10:21 AM EDT Sexual Orientation Straight 06/09/2022 10 :21 AM EDT documented as of this encounter Plan of Treatment Upcoming Encounters Date Type Department Care Team (Late Contact Info) Description 05/02/2025 9:00 AM EDT Office Visit [facility] [address] [place] [address] Lani Peoples MD [address] [place] [address] documented as of this encounter Visit Diagnoses Not on filedocumented in this encounter Additional Health Concerns Assessment Noted Time PHQ-9 Depression Total Score: 1 09/08/19 23 4:01 PM EST documented as of this encounter Care Teams Powerhouse Operator Relationship Specialty Start Date End Date Lani Peoples MD [address] [place] [address] PCP - General Internal Medicine 08/10/18 documented as of this encounter
[2025-02-03 14:27] LABS: Prothrombin Time 11.3 SEC (10.9-12.4)
[2025-02-03 14:43] LABS: Iron 60 mcg/dL (30-160); Percent Iron Saturation 20 % (15-50); Total Iron Binding Capacity 294 mcg/dL (228-428); Unsaturated Iron Binding 234 ug/dL
[2025-02-03 14:59] LABS: Ferritin 46 ng/mL (10-250)
[2025-02-04 09:57] LABS: HBS Num1 209.25 mIU/mL (0-7.99); ~Hepatitis B Surface Antibody REACTIVE (Nonreactive)
[2025-02-06 14:59] LABS: IgA 275 mg/dL (47-310); IgG 1200 mg/dL (600-1640); IgM 281 mg/dL (50-300)
== END 2025-02-03 08:36 | disposition home or self-care (01) ==
LOC: HO.CHCLDS 08:35
PROVIDERS: Visit Provider Internal Medicine
DX: R74.01 Elevation of levels of liver transaminase levels (principal)
CPT/HCPCS: 36415; 82728; 82784; 83540; 85610; 86706

== ENCOUNTER 2025-04-12 07:57 | Outpatient (REF) | payer OTHER, SELFPAY ==
--- NOTE | ~2025-04-12 | US_ITS ---
EXAMINATION: US COMPLETE ABDOMEN WITH LIVER ELASTOGRAPHY CLINICAL INFORMATION: Transaminitis COMPARISON: November 07, 2023 TECHNIQUE: Real-time imaging of the abdominal viscera. Noninvasive ultrasound liver fibrosis assessment is performed using Jose ElastPQ point quantification shear wave elastography (pSWE) with a C5-2 MHz transducer. Multiple elastography samples are obtained. FINDINGS: PANCREAS: The visualized pancreatic head and body are normal in appearance. The remainder of the pancreas is obscured from visualization by the overlying bowel gas. ABDOMINAL AORTA: No aortic aneurysm is seen. INFERIOR VENA CAVA: Visualized portions are normal. LIVER: The liver demonstrates normal size, contour with coarse echogenicity. No focal lesion or intrahepatic biliary duct dilatation. The right lobe measures 13 cm in length. The left lobe measures 6 cm in length. The main portal vein is patent with normal direction of flow. It demonstrates a continuously forward venous waveform. Shear wave liver elastography median stiffness is 2.3 m/s (reference: normal median stiffness is 1.3 m/s or less). IQR/median stiffness to assess sampling precision is 0.13 (reference: good quality data set is IQR/median stiffness of 0.15 or less). GALLBLADDER: The gallbladder is physiologically distended without evidence of stones, sludge, polyps, wall thickening or pericholecystic fluid. COMMON BILE DUCT: Normal in caliber measuring 0.3 cm in diameter. RIGHT KIDNEY: No hydronephrosis. No renal calculi or focal parenchymal lesions. The kidney measures 11 cm in maximum dimension. LEFT KIDNEY: No hydronephrosis. No renal calculi or focal parenchymal lesions. The kidney measures 11 cm in maximum dimension. SPLEEN: Unremarkable. The spleen measures 9 cm in maximum dimension. FREE FLUID: None seen. US/US abdomen comp w elastography IMPRESSION: The liver has a coarse echotexture suggesting underlying hepatic disease Liver elastography: Increased liver stiffness measuring 2.3 m/s is consistent with compensated advanced chronic liver disease. REFERENCE: Society of Radiologists in Ultrasound Liver Stiffness Thresholds (2020): LIVER STIFFNESS THRESHOLDS: *Liver Stiffness equal or less than 1.3 m/s: High probability of being normal. *Liver Stiffness less than 1.7 m/s: In the absence of other known clinical signs, rules out compensated advanced chronic liver disease. *Liver Stiffness 1.7-2.1 m/s: Suggestive of compensated advanced chronic liver disease but need further test for confirmation. *Liver Stiffness over 2.1 m/s: Rules in compensated advanced chronic liver disease. *Liver Stiffness over 2.4 m/s: Suggestive of clinically significant portal hypertension. QUALITY OF DATA SET: *IQR/Median value equal or less than 0.15 implies a quality data set. *IQR/Median value over 0.15 implies a poor quality data set. SIGNIFICANT CHANGE FROM PRIOR EXAM: Significant change if liver stiffness measurement is 10% or greater from prior exam. OTHER CONSIDERATIONS: The stage of liver fibrosis may be overestimated in the setting of acute hepatitis, liver inflammation, elevated liver function tests, hepatic vascular congestion, obstructive cholestasis, non-fasting state, and infiltrative diseases such as amyloidosis and lymphoma. In some patients with NAFLD, the liver stiffness thresholds for compensated advanced chronic liver disease may be lower. In causes other than viral hepatitis and NAFLD, liver stiffness thresholds are not well established. Electronically signed by: Simone Coley MD 04/12/2025 10:07 AM EDT
--- OUTSIDE RECORDS SUMMARY | 2025-04-12 08:03 | XMS_ITS | Encounter Summary ---
Author Organization [employer] Address [address] [place] [address] [address] [place] [address] Care Team Providers Care Managed Care Director Name Role Phone Lani Peoples MD Primary Care Provider Encounter Details Date Type Department Care Team ([facility] Contact Info) Description 05/01/2023 Orders Only [facility] [address] [place] [address] Lani Peoples MD [address] [place] [address] Gastroesophageal reflux disease without esophagitis (Primary Dx); Nausea Social History Tobacco Use Types Packs/Day Years Used Date Smoking Tobacco: Never Smokeless Tobacco: Never Alcohol Use Standard Drinks/Week Comments Never 0 (1 standard drink = 0.6 oz pur e alcohol) Depression Answer Date Recorded Patient Health Questionnaire-9 Score 1 09/08/2022 Depression Answer Date Recorded Patient Health Questionnaire-2 Score 0 09/08/2022 Comments No Sex and Gender Information Value Date Recorded Sex Assigned at Female 06/09/2022 10:21 AM EDT Legal Sex Female 10:21 AM EDT Gender Identity Female 06/09/2022 10:21 AM EDT Sexual Orientation Straight 06/09/2022 10 :21 AM EDT documented as of this encounter Plan of Treatment Upcoming Encounters Date Type Department Care Team ([facility] Contact Info) Description 05/02/2025 9:00 AM EDT Office Visit [facility] [address] [place] [address] Lani Peoples MD [address] [place] [address] documented as of this encounter Visit Diagnoses Diagnosis Gastroesophageal reflux disease without esophagitis- Primary Esophageal reflux Nausea Nausea alone documented in this encounter Additional Health Concerns Assessment Noted Time PHQ-9 Depression Total Score: 1 09/08/19 23 4:01 PM EST documented as of this encounter Care Teams Managed Care Director Relationship Specialty Start Date End Date Lani Peoples MD [address] [place] [address] PCP - General Internal Medicine 08/10/18 documented as of this encounter
--- OUTSIDE RECORDS SUMMARY | 2025-04-12 08:03 | XMS_ITS | Encounter Summary ---
Author Organization [employer] Address [address] [place] [address] Care Team Providers Care Graduate Civil Engineer Name Role Phone Lani Peoples MD Primary Care Provider Encounter Details Date Type Department Care Team (Late Contact Info) Description 09/12/2022 Orders Only [facility] [address] [place] [address] Lani Peoples MD [address] [place] [address] Social History Tobacco Use Types Packs/Day Years [...] Orientation Straight 06/09/2022 10 :21 AM EDT COVID-19 Exposure Response Date Recorded In the last 10 days, have yo u been in contact with someone who was confirmed or suspected to have Coronavirus/COVID-19? No / Unsure 09/08/2022 2:15 PM EST documented as of this encounter Plan of Treatment Upcoming Encounters Date Type Department Care Team (Late st Contact Info) Description 05/02/2025 9:00 AM EDT Office Visit [facility] [address] [place] [address] Lani Peoples MD [address] [place] [address] documented as of this encounter Visit Diagnoses Not on filedocumented in this encounter Additional Health Concerns Assessment Noted Time PHQ-9 Depression Total Score: 1 09/08/19 23 4:01 PM EST documented as of this encounter Care Teams Graduate Civil Engineer Relationship Specialty Start Date End Date Lani Peoples MD [address] [place] [address] PCP - General Internal Medicine 08/10/18 documented as of this encounter
--- OUTSIDE RECORDS SUMMARY | 2025-04-12 08:03 | XMS_ITS | Encounter Summary ---
Author Organization [employer] Address [address] [place] [address] [address] [place] [address] Care Team Providers Care Field Secretary Name Role Phone Lani Peoples MD Primary Care Provider Reason for Referral * Imaging (Routine) - Authorized Specialty Diagnoses / Procedures Referred By Contac t Referred To Contact Radiology Diagnoses Transaminitis Procedures US Abdomen Comp w elastography Lani Peoples MD [address] [place] [address] Phone: tel: fax: [address] Phone: tel: fax: Referral ID Status Reason Start Date Expiration Date V isits Requested Visits Authorized [id number] Authorized 02/02/2025 02/02/2026 1 1 Encounter Details Date Type Department Care Team (Late st Contact Info) Description 02/02/2025 Orders Only [facility] [address] [place], [place] [phone] Lani Peoples MD [address] [place] [phone] Transaminitis (Primary Dx) Social History Tobacco Use Types Packs/Day Years Used Date Smoking Tobacco: Never Smokeless Tobacco: Never Alcohol Use Standard Drinks/Week Comments Never 0 (1 standard drink = 0.6 oz pur e alcohol) Depression Answer Date Recorded Patient Health Questionnaire-9 Score 1 01/30/2025 Patient Health Questionnaire-9 Score 1 01/30/2025 Last PHQ-9: Questionnaire Data Not on file 0 01/30/2025 Housing Stability Answer Date Recorded What is your housing situation today? I have janine pederson 01/30/[address] you li ve. Do you have problems with any of the following? None of the above 01/30/2025 Food Insecurity Answer Date Recorded Within the past 12 months, y ou worried that your food would run out before you got money to buy more: Never True 01/30/2025 Within the past 12 months,th e food you bought just didn't last and you didn't have enough money to get more: Never True Transportation Answer Date Recorded In the past 12 months, has l ack of transportation kept you from medical appts, meetings, work or from getting things needed for daily living? No 01/30/2025 Utilities Answer Date Recorded In the past 12 months, has t he electric, gas, oil or water company threatened to shut off services in your home? No 01/30/2025 Depression Answer Date Recorded Patient Health Questionnaire-2 Score 0 01/30/2025 Internet Access Answer Date Recorded Internet Access Q1 Yes 01/30/2025 Internet Access Q2 Not on file 01/30/2025 Comments No Sex and Gender Information Value Date Recorded Sex Assigned at Female 06/09/2022 10:21 AM EDT Legal Sex Female 10:21 AM EDT Gender Identity Female 06/09/2022 10:21 AM EDT Sexual Orientation Straight 06/09/2022 10 :21 AM EDT documented as of this encounter Plan of Treatment Upcoming Encounters Date Type Department Care Team ([facility] st Contact Info) Description 05/02/2025 9:00 AM EDT Office Visit [facility] [address] [place] [address] Lani Peoples MD [address] [place] [address] Scheduled Orders Name Type Priority Associated Diagnoses Orde r Schedule US Abdomen Comp w elastography Imaging Routine Transaminitis Expected: 02/02/2025, Expires: 02/02/2026 Smooth Muscle Antibody with Reflex to Titer Lab Routine Transaminitis Expected: 02/02/2025 (Approximate), Expires: 02/02/2026 Alpha 1 Antitrypsin Lab Routine Transaminitis Expected: 02/02/2025 (Approximate), Expires: 02/02/2026 documented as of this encounter Procedures Procedure Name Priority Date/Time Associated Diagnosis Comments IMMUNOGLOBULINS, QUANTITATIVE, IGA, IGG, IGM Routine 02/03/2025 8:57 AM EDT Transaminitis IRON AND TOTAL IRON BINDING CAPACITY Routine 02/03/2025 8:37 AM EDT Transaminitis HEPATITIS B SURFACE ANTIBODY, QUALITATIVE Routine 02/03/2025 8:37 AM EDT Transaminitis PROTHROMBIN TIME-INR Routine 02/03/2025 8:37 AM EDT Transaminitis FERRITIN Routine 02/03/2025 8:37 AM EDT Transaminitis documented in this encounter Results * Immunoglobulins, Quantitative, IgA, IgG, IgM (02/03/2025 8:57 AM EDT) IMMUNOGLOBULIN G 1200 600 - 1640 mg/dL [facility] IMMUNOGLOBULIN A 275 47 - 310 mg/dL [facility] Immunoglobulin M 281 50 - 300 mg/dL [facility] Comment:THIS TEST WAS PERFOR MED AT:[employer] [address] [phone] RESENDEZ MD Blood Venous blood specimen / Unknown 02/03/2025 8:57 AM EDT 02/03/2025 2:05 PM EDT us Lani Peoples MD LAB BLOOD ORDERABLES Final Result [facility] [address] [place] [address] [phone] * Iron And Total Iron Binding Capacity (02/03/2025 8:37 AM EDT) Iron 60 30 - 160 mcg/dL [facility] Total Iron Binding Capacity 294 228 - 428 mcg/dL [facility] Percent Iron Saturation 20 15 - 50 % [facility] Unsaturated Iron Binding 234 ug/dL [facility] Blood Venous blood specimen / Unknown 02/03/2025 8:37 AM EDT 02/03/2025 2:10 PM EDT Lani Peoples MD LAB BLOOD ORDERABLES Final Result Performing Organization Address [facility]/ZIP Co de Phone Number [facility] [address] [place] [phone] * Ferritin (02/03/2025 8:37 AM EDT) Pathologist [facility] Ferritin 46 10 - 250 ng/mL [facility] Blood Venous blood specimen / Unknown 02/03/2025 8:37 AM EDT 02/03/2025 2:10 PM EDT us Lani Peoples MD LAB BLOOD ORDERABLES Final Result Performing Organization Address [facility] Co de Phone Number [facility] [address] [place] [phone] * Prothrombin Time-INR (02/03/2025 8:37 AM EDT) Prothrombin Time 11.3 10.9 - 12.4 SEC [facility] INTERNATIONAL NORM RATIO 1.0 0.9 - 1.1 [facility] Comment:INTERNATIONAL NORMAL IZED RATIO (INR) REFERENCE RANGES Reference RangeFor patients not on anticoagulant therapy: 0.9 - 1.1INR ranges for oral anticoagulanttherapy:For prevention and treatment of venous thrombosis and pulmonary embolism: 2.0 - 3.0For acute myocardial infarction with aspirin therapy: 2.0 - 3.0For acute myocardial infarction without aspirin therapy: 3.0 - 4.0For patients with mechanical prosthetic heart valves: 2.5 - 3.5 Blood Venous blood specimen / Unknown 02/03/2025 8:37 AM EDT 02/03/2025 2:10 PM EDT Lani Peoples MD LAB BLOOD ORDERABLES Final Result Performing Organization Address City/[facility]/ZIP Co de Phone Number [facility] [address] [place] [address] [phone] * Hepatitis B Surface Antibody, Qualitative (02/03/2025 8:37 AM EDT) ~Hepatitis B Surface Antibody REACTIVE Nonreactive [facility] Comment:REACTIVE: > 11.99 mI U/mL Blood Venous blood specimen / Unknown 02/03/2025 8:37 AM EDT 02/03/2025 2:05 PM EDT us Lani Peoples MD LAB BLOOD ORDERABLES Final Result Performing Organization Address [facility] Co de Phone Number [facility] [address] [place] [address] [phone] documented in this encounter Visit Diagnoses Diagnosis Transaminitis- Primary Nonspecific elevation of levels of transaminase or lactic acid dehydrogenase (LDH) documented in this encounter Additional Health Concerns Assessment Noted Time PHQ-9 Depression Total Score: 1 01/31/20 25 10:02 AM EDT documented as of this encounter Care Teams Field Secretary Relationship Specialty Start Date End Date Lani Peoples MD [address] [place] [phone] PCP - General Internal Medicine 08/10/18 documented as of this encounter
--- OUTSIDE RECORDS SUMMARY | 2025-04-12 08:03 | XMS_ITS | Encounter Summary ---
Author Organization [facility] [employer] Address [address] [place] [phone] Care Team Providers Care Contact Lens Lathe Operator Name Role Phone Lani Peoples MD Primary Care Provider Encounter Details Date Type Department Care Team (Late Contact Info) Description 03/18/2023 Orders Only [facility] [address] [place] [address] Nayely Alvarez LPN Social History Tobacco Use [...] Description 05/02/2025 9:00 AM EDT Office Visit [facility] [address] [place] [address] Lani Peoples MD [address] [place] [address] documented as of this encounter Visit Diagnoses Not on filedocumented in this encounter Additional Health Concerns Assessment Noted Time PHQ-9 Depression Total Score: 1 09/08/19 23 4:01 PM EST documented as of this encounter Care Teams Contact Lens Lathe Operator Relationship Specialty Start Date End Date Lani Peoples MD [address] [place] [address] PCP - General Internal Medicine 08/10/18 documented as of this encounter
--- OUTSIDE RECORDS SUMMARY | 2025-04-12 08:03 | XMS_ITS | Clinical Summary ---
Author Organization [employer] Address [address] [facility] [address] [place] [address] Care Team Providers Care Fire Suppression Captain Name Role Phone Lani Peoples MD Primary Care Provider Allergies Active Allergy Reactions Criticality Noted Date Comments Penicillin G Hives 06/02/2012 Tramadol Nausea And Vomiting 02/18/2022 Medications Neomycin-Polymyx in-HC 1 % solutionIndicati ons:Other allergy, other than to medicinal agents Administer 4 drops into affected ear(s) 4 times daily. 10 mL 3 Active diphenhydrAMINE (BENADryl) 25 MG tabletIndication s:Other allergy, other than to medicinal agents Take 1 tablet (25 mg) by mouth every 8 (eight) hours if needed for itching. 30 tablet 3 Active PARoxetine (Paxil) 10 MG tablet TAKE 1 TABLET BY MOUTH EVERY DAY 3 Active omeprazole (PriLOSEC) [address] capsule TAKE 1 CAPSULE (20 MG) BY MOUTH 2 TIMES DAILY. DO NOT CRUSH, CHEW, OR SPLIT. 180 capsule 5 4 Active Fluticasone Furoate-Vilanter ol (Breo Ellipta) 200-25 MCG/ACT aerosol powder Inhale 200 mcg Once per day. 60 each 11 4 Active montelukast (Singulair) 5 mg split tablet 10 mg. 4 Active PARoxetine (Paxil) 10 MG tablet TAKE 1 TABLET BY MOUTH EVERY DAY IN THE MORNING 30 tablet 10 4 Active famotidine (Pepcid) 20 MG tabletIndication s:Gastroesophage al reflux disease without esophagitis TAKE 1 TABLET BY MOUTH TWICE A DAY 180 tablet 3 5 Active cetirizine (ZyrTEC) 10 MG tabletIndication s:Other allergy status, other than to drugs and biological substances TAKE 1 TABLET BY MOUTH EVERY DAY 90 tablet 1 5 Active Restasis 0.05 % ophthalmic emulsion PLACE 1 DROP IN AFFECTED EYE(S) EVERY 12 HOURS 180 mL 5 Active Neomycin-Polymyx in-HC 1 % solutionIndicati ons:Other infective acute otitis externa of left ear Administer 4 drops into affected ear(s) 4 times daily. 10 mL 5 Active Ketotifen Fumarate 0.035 % solutionIndicati ons:Seasonal allergies ADMINISTER 1 DROP INTO AFFECTED EYE(S) IN THE MORNING AND AT BEDTIME. 5 mL 1 5 Active hydrocortisone (West-Angel) 0.2 % creamIndications :Irritant contact dermatitis due to other agents Apply topically 2 times daily. 15 g 5 Active Active Problems Problem Noted Date Diagnosed Date Mild persistent asthma 10/02/2022 Other allergy, other than to medicinal agents Gastroesophageal reflux disease 04/26/2013 Impacted cerumen 04/26/2013 Encounters Date Type Department Care Team Description 03/14/2025 Refill [facility] [address] [place] [address] Lani Peoples MD Acute non-recurrent maxillary sinusitis; Irritant contact dermatitis due to other agents; Other infective acute otitis externa of left ear 02/06/2025 Results Follow-Up [facility] [address] [place] [address] Susan Mistry RN Hepatitis B Surface Antibody, Qualitative, Prothrombin Time-INR, Ferritin, Iron And Total Iron Binding Capacity 02/02/2025 Results Follow-Up [facility] [address] [place] [address] Susan Mistry RN CBC auto differential, Ferritin, Lipid Panel, Standard, Additional followed-up results: 2 02/02/2025 Orders Only [facility] [address] [place] [address] Lani Peoples MD Transaminitis (Primary Dx) 01/30/2025 9:30 AM EDT Office Visit [facility] [address] [place] [address] Lani Peoples MD Annual physical exam (Primary Dx); Gastroesophageal reflux disease without esophagitis; Mild persistent asthma without complication; Irritant contact dermatitis due to other agents; Recurrent otitis externa of both ears; Encounter for immunization 01/30/2025 Travel 01/29/2025 Travel 01/23/2025 Patient Outreach [facility] [address] [place] [address] Lani Peoples MD Pre-visit Planning (Pre visit planning LVM ) 01/18/2025 Refill [facility] [address] [place] [address] Lani Peoples MD Seasonal allergies from Last 3 Months Immunizations Immunization Administration Dates Next Due Hep B, adult 04/16/2021,01/29/2021,12/25/2020 Influenza Injectable Quadriv alant Preservative Free IIV4 MDCK 06/20/2022 Influenza injectable quadriv alent IIV4 with preservative 07/14/2018 Influenza injectable quadriv alent preservative free 05/12/2023,04/28/2021,05/15/2020,2018,05/12/2017 Influenza, IIV3, injectable 08/31/2014, 1 Influenza, Split (incl. [place] f[place] surface antigen) 04/26/2013,06/02/2012 Influenza, seasonal, injecta ble, preservative free 06/14/2024 Moderna Covid-19 Vaccine 12+ 10/24/2020,09/26/19 21 Pneumococcal Conjugate PCV 20 01/30/2025 TD (adult), 2 Lf tetanus tox oid, preservative free, adsorbed 09/10/2023 Tdap 11/01/2010 Family History Medical History Relation Name Comments Alcohol abuse Brother Antony radha Diabetes Father Breast cancer Father's Sister Ovarian cancer Maternal Grandmother Arthritis Mother Marta ladonna Heart disease Mother Marta dougherty Hypertension Mother Marta dougherty Kidney disease Mother Marta dougherty Vision loss Mother Marta dougherty Lung cancer Sister Lin Lopez Asthma Son Markus Relation Name Status Comments Brother Antony garcia Father Father's Sister Maternal Grandmother Mother Marta dougherty Sister Lin Lopez Son Markus Social History Tobacco Use Types Packs/Day Years Used Date Smoking Tobacco: Never Smokeless Tobacco: Never Tobacco Cessation:Counseling Given: Not Answered Alcohol Use Standard Drinks/Week Comments Never 0 [...] Orientation Straight 06/09/2022 10 :21 AM EDT Last Filed Vital Signs Vital Sign Reading Time Taken Comments Blood Pressure 134/82 01/30/2025 9:31 AM EDT Pulse 77 01/30/2025 9:31 AM EDT Temperature 36.7 C (98 F) 01/30/2025 9:31 AM EDT Respiratory Rate 20 01/30/2025 9:31 AM EDT Oxygen Saturation 98% 01/30/2025 9:31 AM EDT Inhaled Oxygen Concentration - - Weight 65.8 kg (145 lb) 01/30/2025 9:31 AM EDT Height 149.9 cm (4' 11 ) 01/30/2025 9:31 AM EDT Body Mass Index 29.29 01/30/2025 9:31 AM EDT Plan of Treatment Upcoming Encounters Date Type Department Care Team ([facility] st Contact Info) Description 05/02/2025 9:00 AM EDT Office Visit [facility] [address] [place] [address] Lani Peoples MD [address] [place] [address] Health Maintenance Due Date Last Done Comments CT Colonography 1980 FIT DNA/Cologuard 1980 FIT 1980 FOBT 1980 Sigmoidoscopy 1980 Family Planning (PISQ) 1993 COVID-19 Vaccine ( season) 2024 06/13/2021, 10/24/2020, 09/26/2020 Colonoscopy 03/08/2025 Colorectal Cancer Screening 03/08/2025 Influenza Vaccine (#1) 2025 , 05/12/2023, 06/20/2022, Additional history exists Tobacco Screening 12/02/2025 12/02/2024 Cervical Cancer Screening 12/18/2025 HPV/Cotest 12/18/2025 12/18/2020, 12/08/2017 Pap Smear 12/18/2025 12/18/2020 Disability Screening 01/29/2026 01/29/2025 Alcohol/Substance Use Screening 01/30/2026 01/30/2025 Depression Screening 01/30/2026 01/30/2025, 01/31/20 SDOH Screening 01/30/2026 01/30/2025 Mammogram 03/25/2026 03/25/2024, 02/08, 01/03/2022, Additional history exists Zoster Vaccines (1 of 2) 2028 DTaP/Tdap/Td Vaccines (3 - Td or Tdap) 09/10/2033 09/10/2023, 11/01/2010 RSV Patients and Patients Aged 60 years or older (1 - 1-dose 75+ series) 2053 HIV Screening Completed 12/18/2020 Hepatitis C Screening Completed 12/18/2020 Hepatitis B Vaccines Completed 04/16/2021, 01/29/2021, 12/25/2020 Pneumococcal Vaccine: Pediatrics (0 to 5 Years) and At-Risk Patients (6 to 49) Years Completed 01/30/2025 HIB Vaccines Aged Out No longer eligi ble based on patient's age to complete this topic HPV Vaccines Aged Out No longer eligi ble based on patient's age to complete this topic Hepatitis A Vaccines Aged Out No long er eligible based on patient's age to complete this topic IPV Vaccines Aged Out No longer eligi ble based on patient's age to complete this topic Meningococcal B Vaccine Aged Out No l onger eligible based on patient's age to complete this topic Meningococcal Vaccine Aged Out No [place] claudia eligible based on patient's age to complete this topic RSV under 20 months Aged Out No longe r eligible based on patient's age to complete this topic Rotavirus Vaccines Aged Out No longer eligible based on patient's age to complete this topic Procedures Procedure Name Priority Date/Time Associated Diagnosis Comments IMMUNOGLOBULINS, QUANTITATIVE, IGA, IGG, IGM Routine 02/03/2025 8:57 AM EDT Transaminitis IRON AND TOTAL IRON BINDING CAPACITY Routine 02/03/2025 8:37 AM EDT Transaminitis FERRITIN Routine 02/03/2025 8:37 AM EDT Transaminitis PROTHROMBIN TIME-INR Routine 02/03/2025 8:37 AM EDT Transaminitis HEPATITIS B SURFACE ANTIBODY, QUALITATIVE Routine 02/03/2025 8:37 AM EDT Transaminitis CBC WITH AUTO DIFFERENTIAL Routine 02/01/2025 9:28 AM EDT Annual physical exam COMPREHENSIVE METABOLIC PANEL Routine 02/01/2025 8:28 AM EDT Annual physical exam IRON AND TOTAL IRON BINDING CAPACITY Routine 02/01/2025 8:28 AM EDT Annual physical exam LIPID PANEL, STANDARD Routine 02/01/2025 8:28 AM EDT Annual physical exam FERRITIN Routine 02/01/2025 8:28 AM EDT Annual physical exam BI MAMMOGRAM SCREENING TOMOSYNTHESIS BILATERAL Routine 03/25/2024 3:30 PM EDT ZZZ HISTORICAL HEPATITIS C AB W/REFL TO HCV RNA, QN, PCR Routine 12/18/2020 11:16 AM EDT HIV 1/2 ANTIGEN/ANTIBODY, FOURTH GENERATION W/RFL Routine 12/18/2020 11:16 AM EDT HPV MRNA E6/E7 Routine 12/18/2020 10:30 AM EDT THINPREP PAP Routine 12/18/2020 10:30 AM EDT from Last 3 Months or Most Recently Relevant to Health Maintenance Results * Immunoglobulins, Quantitative, IgA, IgG, IgM (02/03/2025 8:57 AM EDT) IMMUNOGLOBULIN G 1200 600 - 1640 mg/dL [facility] IMMUNOGLOBULIN A 275 47 - 310 mg/dL [facility] Immunoglobulin M 281 50 - 300 mg/dL [facility] Comment:THIS TEST WAS PERFOR MED AT:[employer] [place] [phone] RESENDEZ MD Blood Venous blood specimen / Unknown 02/03/2025 8:57 AM EDT 02/03/2025 2:05 PM EDT us Lani Peoples MD LAB BLOOD ORDERABLES Final Result Performing Organization Address [facility]/ZIP Co de Phone Number [facility] [address] [place] [phone] * Iron And Total Iron Binding Capacity (02/03/2025 8:37 AM EDT) Only the most recent of2 resultswithin the time period is included. Iron 60 30 - 160 mcg/dL [facility] Total Iron Binding Capacity 294 228 - 428 mcg/dL [facility] Percent Iron Saturation 20 15 - 50 % [facility] Unsaturated Iron Binding 234 ug/dL [facility] Blood Venous blood specimen / Unknown 02/03/2025 8:37 AM EDT 02/03/2025 2:10 PM EDT us Lani Peoples MD LAB BLOOD ORDERABLES Final Result Performing Organization Address [facility] Co de Phone Number [facility] [address] [place] [phone] * Hepatitis B Surface Antibody, Qualitative (02/03/2025 8:37 AM EDT) ~Hepatitis B Surface Antibody REACTIVE Nonreactive [facility] Comment:REACTIVE: > 11.99 mI U/mL Blood Venous blood specimen / Unknown 02/03/2025 8:37 AM EDT 02/03/2025 2:05 PM EDT Lani Peoples MD LAB BLOOD ORDERABLES Final Result Performing Organization Address [facility]/ZIP Co de Phone Number [facility] [address] [place] [phone] * Prothrombin Time-INR (02/03/2025 8:37 AM EDT) [facility] Prothrombin Time 11.3 10.9 - 12.4 SEC [facility] INTERNATIONAL NORM RATIO 1.0 0.9 - 1.1 [facility] Comment:INTERNATIONAL NORMAL IZED RATIO (INR) REFERENCE [...] BLOOD ORDERABLES Final Result Performing Organization Address [facility] de Phone Number [facility] [address] [place] [phone] * Ferritin (02/03/2025 8:37 AM EDT) Only the most recent of2 resultswithin the time period is included. [facility] Ferritin 46 10 - 250 ng/mL [facility] Blood Venous blood specimen / Unknown 02/03/2025 8:37 AM EDT 02/03/2025 2:10 PM EDT us Lani Peoples MD LAB BLOOD ORDERABLES Final Result Performing Organization Address [facility] de Phone Number [facility] [address] [place] [phone] * (ABNORMAL) CBC auto differential (02/01/2025 9:28 AM EDT) [facility] White Blood Count 6.8 4.8 - 10.8 X10*3/uL [facility] Red Blood Count 4.72 4.20 - 5.50 X10*6/uL [facility] Hemoglobin 13.2 12.0 - 16.0 g/dl [facility] Hematocrit 40.2 37.0 - 47.0 % [facility] Mean Corpuscular Volume 85.2 80.0 - 98.0 fL [facility] Mean Corpuscular Hemoglobin 28.0 27.0 - 33.0 pg [facility] Mean Corpuscular HGB Conc 32.8 31.0 - 35.0 g/dl [facility] Red Cell Distribution Width 14.1 11.0 - 16.0 % [facility] Platelet Count 363 160 - 400 X10*3/uL [facility] Mean Platelet Volume 10.4 9.4 - 12.3 fL [facility] Neutrophils Percent Auto 54.8 45 - 73 % [facility] Imm Gran Pct Auto 0.1 0.0 - 0.4 % [facility] Lymphocytes Percent Auto 29.7 20 - 40 % [facility] Monocytes Percent Auto 12.7(H) 2 - 11 % [facility] Eosinophils Percent Auto 1.8 0 - 4 % [facility] Basophils Percent Auto 0.9 0 - 2 % [facility] NRBC Pct Auto 0.0 0.0 - 0.2 /100WBC [facility] Neutrophils Absolute Auto 3.8 2.0 - 8.3 x10*3/uL [facility] Imm Gran Abs Auto 0.01 0.00 - 0.03 X10*3/uL [facility] Lymphocytes Absolute Auto 2.0 1.2 - 4.9 X10*3/uL [facility] Monocytes Absolute Auto 0.9 0.1 - 1.2 X10*3/uL [facility] Eosinophils Absolute Auto 0.1 0.0 - 0.4 X10*3/uL [facility] Basophils Absolute Auto 0.1 0.0 - 0.2 X10*3/uL [facility] NRBC Abs Auto 0.000 0.0 - 0.012 X10*3/uL [facility] Blood Venous blood specimen / Unknown 02/01/2025 9:28 AM EDT 02/01/2025 2:28 PM EDT us Lani Peoples MD LAB BLOOD ORDERABLES Final Result [facility] [address] [place] [phone] [phone] * (ABNORMAL) Lipid Panel, Standard (02/01/2025 8:28 AM EDT) Triglycerides 136 <150 mg/dL [facility] Comment:Slight Lipemia.Craig able Triglyceride: less than 150 mg/dLBorderline High Triglyceride 150-199 mg/dLHigh Triglyceride: 200-499 mg/dLVery High Triglyceride: greater than or equal to 5OO mg/dL Cholesterol 236(H) <200 mg/dL [facility] Comment:Desirable Cholestero l: less than 200 mg/dLBorderline High Cholesterol: 200-239 mg/dLHigh Cholesterol: greater than 239 mg/dL LDL Cholesterol Calculated 163(H) <100 mg/dL [facility] Comment:Desirable LDL: less than 100 mg/dLNear Optimal/Above Optimal LDL: 110- 129 mg/dLBorderline High LDL: 130-159 mg/dLHigh LDL: 160-189 mg/dLVery High LDL: greater than or equal to 190 mg/dL HDL Cholesterol 46 >40 mg/dL [facility] Comment:Desirable HDL: great er than 40 mg/dL Note: This HDL assay may give artificially low results in patients with liver disease. Blood Venous blood specimen / Unknown 02/01/2025 8:28 AM EDT 02/01/2025 2:28 PM EDT us Lani Peoples MD LAB BLOOD ORDERABLES Final Result [facility] [address] [place] [address] [phone] * (ABNORMAL) Comprehensive Metabolic Panel (02/01/2025 8:28 AM EDT) Sodium 140 135 - 145 mmol/L [facility] Potassium 4.0 3.3 - 5.1 mmol/L [facility] Chloride 107 96 - 108 mmol/L [facility] Carbon Dioxide 26 22 - 29 mmol/L [facility] Anion Gap 11(L) 12 - 20 [facility] Urea Nitrogen (BUN) 11 9 - 16 mg/dL [facility] Creatinine, Serum 0.55 0.5 - 1.4 mg/dL [facility] Estimated Glomerular Filt Rate >60 [facility] Comment:Chronic Kidney Disea se: Estimated GFR < 60 mL/min/[id number] Kidney Disease: Estimated GFR < 15 mL/min/1.73m2 Glucose 86 60 - 115 mg/dL [facility] Calcium 9.4 8.4 - 10.2 mg/dL [facility] Bilirubin, Total 0.4 0.0 - 1.0 mg/dL [facility] Aspartate Amino Transferase 36(H) 5 - 31 U/L [facility] Alanine Aminotransferase 28 0 - 31 U/L [facility] Total Protein 7.2 6.5 - 8.0 g/dL [facility] Albumin Level 4.0 3.5 - 5.0 g/dL [facility] Alkaline Phosphatase 77 39 - 117 U/L [facility] Blood Venous blood specimen / Unknown 02/01/2025 8:28 AM EDT 02/01/2025 2:28 PM EDT us Lani Peoples MD LAB BLOOD ORDERABLES Final Result [facility] [address] [place], [place] [phone] * BI Mammogram Screening Tomosynthesis Bilateral (03/25/2024 3:30 PM EDT) Anatomical Region Laterality Modality Breast Bilateral Mammography 03/25/2024 3:30 PM EDT Narrative 04/23/2024 4:04 PM EDT [facility] [address] [place] [address] Mammography Report Signed Patient: Fang Lopez MR#: [id number] : 1980 Acct:[id number] Age/Sex: 43 / F ADM Date: 03/25/24 Loc: HO.MAMMO Attending Dr: Lani Peoples MD Ordering Physician: Lani Peoples MD Results: 1 Negative Date of Service: 03/25/24 Follow Up: 1 Year From Orig inal Mammogram Procedure(s): MM tomosynthesis screening BI Accession Number(s): [id number] cc: Lani Peoples MD EXAMINATION: MM SCREENING DIGITAL BREAST TOMOSYNTHESIS, BILATERAL CLINICAL INFORMATION: Screening. Asymptomatic. COMPARISON: Mammography: This study is compared with prior exams dating back to 2019. TECHNIQUE: Digital breast tomosynthesis is performed in both the craniocaudal and mediolateral oblique views along with computer-aided detection (CAD). Synthesized 2D images are generated from the tomosynthesis. FINDINGS: The breasts are heterogeneously dense, which may obscure small masses (ACR BI-RADS breast composition Category c). There are no significant masses, abnormal calcifications, or other abnormalities. MM/MM tomosynthesis screening BI IMPRESSION: No mammographic evidence of malignancy. ASSESSMENT: BI-RADS BI-RADS 1 - Negative RECOMMENDATION: Routine annual mammography screening. 1 year F/U This examination should not preclude the clinical evaluation of a suspicious palpable abnormality. This patient's information was entered into a reminder system with a target due date for their next mammogram. Electronically signed by: Kierra Reynolds MD 04/23/2024 04:01 PM EDT Dictated By: Kierra Reynolds MD Signed By: <Electronically signed by Kierra Reynolds MD in OV> 04/23/24 1601 DD/ 1530 TD/TT: 03/25/24 1545 Creel Operator: Procedure Note Donotuseinterpreter, Image - 04/23/2024 [place] [facility] [address] [place] [address] Mammography Report Signed Patient: Fang LopezMR#: [id number] : 1980Acct:[id number] Age/Sex: 43 / FADM Date: 03/25/24 Loc: HO.MAMMO Attending Dr: Lani Peoples MD Ordering Physician: Lani Peoples MDResults: 1 Negative Date of Service: 03/25/24Follow Up: 1 Year From Orig ina Mammogram Procedure(s): MM tomosynthesis screening BI Accession Number(s): [id number] cc: Lani Peoples MD EXAMINATION: MM SCREENING DIGITAL BREAST TOMOSYNTHESIS, BILATERAL CLINICAL INFORMATION: Screening. Asymptomatic. COMPARISON: Mammography: This study is compared with prior exams dating back to 2019. TECHNIQUE: Digital breast tomosynthesis is performed in both the craniocaudal and mediolateral oblique views along with computer-aided detection (CAD). Synthesized 2D images are generated from the tomosynthesis. FINDINGS: The breasts are heterogeneously dense, which may obscure small masses (ACR BI-RADS breast composition Category c). There are no significant masses, abnormal calcifications, or other abnormalities. MM/MM tomosynthesis screening BI IMPRESSION: No mammographic evidence of malignancy. ASSESSMENT: BI-RADS BI-RADS 1 - Negative RECOMMENDATION: Routine annual mammography screening. 1 year F/U This examination should not preclude the clinical evaluation of a suspicious palpable abnormality. This patient's information was entered into a reminder system with a target due date for their next mammogram. Electronically signed by: Kierra Reynolds MD 04/23/2024 04:01 PM EDT Dictated By: Kierra Reynolds MD Signed By: <Electronically signed by Kierra Reynolds MD in OV> 04/23/24 1601 DD/ 1530 TD/TT: 03/25/24 1545 Creel Operator: us Lani Peoples MD IMG BI PROCEDURES Edited Re sult - Final * HEPATITIS C AB W/REFL TO HCV RNA, QN, PCR (12/18/2020 11:16 AM EDT) HEPATITIS C ANTIBODY NON-REACT LESLI NON-REACT LESLI [facility] INDEX 0.01 <1.00 [facility] Comment: HCV antibody was non-reactive. There is no laboratory evidence of HCV infection. In most cases, no further action is required. However, if recent HCV exposure is suspected, a test for HCV RNA (test code 40118) is suggested. For additional information please refer to http://[employer]/faq/UQK60d3 (This link is being provided for informational/ educational purposes only.) 12/18/2020 11:1 6 AM EDT Elizabeth Dumont CNM HISTORICAL/NON ORDERABLE LABS Final Result Performing Organization Address City/State/[facility] Co de Phone Number [facility] [address] [place] [address], * HIV 1/2 ANTIGEN/ANTIBODY,FOURTH GENERATION W/RFL (12/18/2020 11:16 AM EDT) HIV-1/2 ANTIGEN AND ANTIBODIES, 4TH GENERATION W/ REFLEX NON-REACT LESLI NON-REACT LESLI [facility] Comment: HIV-1 antigen and HIV-1/HIV-2 antibodies were not detected. There is no laboratory evidence of HIV infection. PLEASE NOTE: This information has been disclosed to you from records whose confidentiality may be protected by state law. If your state requires such protection, then the state law prohibits you from making any further disclosure of the information without the specific written consent of the person to whom it pertains, or as otherwise permitted by law. A general authorization for the release of medical or other information is NOT sufficient for this purpose. For additional information please refer to http://[employer]/faq/XCF872 (This link is being provided for informational/ educational purposes only.) The performance of this assay has not been clinically validated in patients less than 2 years old. 12/18/2020 11:1 6 AM EDT Elizabeth PAREDES LAB BLOOD ORDERABLES Kylee l Result Performing Organization Address [facility] Co de Phone Number [facility] [address] [place] [address], * THINPREP PAP (12/18/2020 10:30 AM EDT) Clinical Information: None given [facility] COMMENT SEE COMMENT [facility] Comment: EXPLANATORY NOTE: The Pap is a screening test for cervical cancer. It is not a diagnostic test and is subject to false negative and false positive results. It is most reliable when a satisfactory sample, regularly obtained, is submitted with relevant clinical findings and history, and when the Pap result is evaluated along with historic and current clinical information. Director Writing : SEE COMMENT [facility] Comment: BK,CT(ASCP) CT screening location: [address] Interpretation/R esult: Negative for intraepithelial lesion or malignancy. [facility] LMP: NONE GIVEN [facility] Prev. BX: NONE [facility]IV[facility] Prev. PAP: NONE [facility]IV[facility] SOURCE: None given [facility] Statement Of Adequacy: SEE COMMENT [facility] Comment: Satisfactory for evaluation. Endocervical/transformation zone component present. 12/18/2020 10:3 0 AM EDT [facility] LAB PATHOLOGY ORDERABLES Final Result Performing Organization Address [facility] de Phone Number [facility] [address] [place] [address], * HPV mRNA E6/E7 (12/18/2020 10:30 AM EDT) HPV nRNA E6/E7 Not Detected Not Detected [facility] Comment: Methodology: Payroll And Benefits Assistant-Mediated Amplification This assay detects E6/E7 viral messenger RNA (mRNA) from 14 high-risk HPV types (16,18,31,33,35,39,45,51,52,56,58,59,66,68). The analytical performance characteristics of this assay have been determined by [employer]. The modifications have not been cleared or approved by the FDA. This assay has been validated pursuant to the CLIA regulations and is used for clinical purposes. For additional information, please refer to http://education.[employer].Tablus/faq/MTA128p9 (This link if provided for information/ educational purposes only.) 12/18/2020 10:3 0 AM EDT us Elizabeth Tim CNM LAB BLOOD ORDERABLES Kylee mitchell Result [facility] [address] from Last 3 Months or Most Recently Relevant to Health Maintenance Insurance [employer] Care Teams Fire Suppression Captain Relationship Specialty Start Date End Date Lani Peoples MD [address] [place] [address] PCP - General Internal Medicine 08/10/18
--- OUTSIDE RECORDS SUMMARY | 2025-04-12 08:03 | XMS_ITS | Encounter Summary ---
Author Organization [employer] Address [address] [facility] 7 [place] [address] Care Team Providers Care Imcu Specialist Name Role Phone Lani Peoples MD Primary Care Provider Encounter Details Date Type Department Care Team ([facility] st Contact Info) Description 09/14/2023 Orders Only [facility] CHC MED & PEDS [address] [place], [place] [phone] Lani Peoples MD [address] [place] [address] Gastroesophageal reflux disease without esophagitis (Primary Dx) Social History Tobacco Use Types Packs/Day Years Used Date Smoking Tobacco: Never Smokeless Tobacco: Never Alcohol Use Standard Drinks/Week Comments Never 0 (1 standard drink = 0.6 oz pur e alcohol) Depression Answer Date Recorded Patient Health Questionnaire-9 Score 0 09/10/2023 Patient Health Questionnaire-9 Score 0 09/10/2023 Last PHQ-9: Questionnaire Data Not on file 0 09/10/2023 Housing Stability Answer Date Recorded What is your housing situation today? I have janinelena pederson 06/08/[address] you li ve. Do you have problems with any of the following? None of the above 06/08/2023 Food Insecurity Answer Date Recorded Within the past 12 months, y ou worried that your food would run out before you got money to buy more: Never True 06/08/2023 Within the past 12 months,th e food you bought just didn't last and you didn't have enough money to get more: Never True Transportation Answer Date Recorded In the past 12 months, has l ack of transportation kept you from medical appts, meetings, work or from getting things needed for daily living? No 06/08/2023 Utilities Answer Date Recorded In the past 12 months, has t he electric, gas, oil or water company threatened to shut off services in your home? No 06/08/2023 Depression Answer Date Recorded Patient Health Questionnaire-2 Score 0 09/10/2023 Comments No Sex and Gender Information Value Date Recorded Sex Assigned at Female 06/09/2022 10:21 AM EDT Legal Sex Female 10:21 AM EDT Gender Identity Female 06/09/2022 10:21 AM EDT Sexual Orientation Straight 06/09/2022 10 :21 AM EDT documented as of this encounter Plan of Treatment Upcoming Encounters Date Type Department Care Team ([facility] st Contact Info) Description 05/02/2025 9:00 AM EDT Office Visit [facility] MED & PEDS [address] [place] [address] Lani Peoples MD [address] [place] [address] documented as of this encounter Visit Diagnoses Diagnosis Gastroesophageal reflux disease without esophagitis- Primary Esophageal reflux documented in this encounter Additional Health Concerns Assessment Noted Time PHQ-9 Depression Total Score: 0 09/10/19 24 2:24 PM EST documented as of this encounter Care Teams Imcu Specialist Relationship Specialty Start Date End Date Lani Peoples MD [address] [place] [address] PCP - General Internal Medicine 08/10/18 documented as of this encounter
--- OUTSIDE RECORDS SUMMARY | 2025-04-12 08:03 | XMS_ITS | Encounter Summary ---
Author Organization [employer] Address [address] [facility] 7 [place] [address] Care Team Providers Care Rn Radiation Oncology Name Role Phone Lani Peoples MD Primary Care Provider Reason for Visit * Reason Comments Med Refill Encounter Details Date Type Department Care Team ([facility] st Contact Info) Description 08/21/2023 Refill [facility] CHC MED & PEDS [address] [place], [place] [phone] Lani Peoples MD [address] [place], [place] [phone] Social History Tobacco Use Types Packs/Day Years Used Date Smoking Tobacco: Never Smokeless Tobacco: Never Alcohol Use Standard Drinks/Week Comments Never 0 (1 standard drink = 0.6 oz pur e alcohol) Depression Answer Date Recorded Patient Health Questionnaire-9 Score 1 09/08/2022 Housing Stability Answer Date Recorded What is [...] Description 05/02/2025 9:00 AM EDT Office Visit [facility] MED & PEDS [address] [place] [address] Lani Peoples MD [address] [place] [address] documented as of this encounter Visit Diagnoses Not on filedocumented in this encounter Additional Health Concerns Assessment Noted Time PHQ-9 Depression Total Score: 1 09/08/19 23 4:01 PM EST documented as of this encounter Care Teams Rn Radiation Oncology Relationship Specialty Start Date End Date Lani Peoples MD [address] [place] [address] PCP - General Internal Medicine 08/10/18 documented as of this encounter
--- OUTSIDE RECORDS SUMMARY | 2025-04-12 08:03 | XMS_ITS | Encounter Summary ---
Author Organization [employer] Address [address] [place] [address] [place], [place] [address] Care Team Providers Care Winding Lathe Operator Name Role Phone Lani Peoples MD Primary Care Provider Reason for Visit * Reason Onset Date Comments call back requested 08/07/2022 Returning Call Back 08/12/2022 Encounter Details Date Type Department Care Team ([facility] st Contact Info) Description 08/07/2022 Telephone [facility] MED & PEDS [address] [place] [address] Lani Peoples MD [address] [place], [place] [phone] call back requested ; Returning Call Back Social History Tobacco Use Types Packs/Day Years Used Date Smoking Tobacco: Never Assessed Comments Unknown Sex and Gender Information Value Date Recorded Sex Assigned at Female 06/09/2022 10:21 AM EDT Legal Sex Female 10:21 AM EDT Gender Identity Female 06/09/2022 10:21 AM EDT Sexual Orientation Straight 06/09/2022 10 :21 AM EDT documented as of this encounter Miscellaneous Notes * Telephone Encounter - Yumiko Mercer RN - 08/14/2022 11:01 AM EST Return call placed to pt, no answer. LVM to return call to [facility] nurses. * Telephone Encounter - Jaycee Walker - 08/12/2022 3:20 PM EST Tc from patient returning call back, regarding message below. * Telephone Encounter - Mariangel Valencia RN - 08/12/2022 2:55 PM EST Telephone call to patient regarding Dr. Peoples message Please call for a status check and offer a SDC appointment if patient is still experiencing nausea. No answer. Voice Message left to call [facility]. * Telephone Encounter - Taylor Ashby RN - 08/07/2022 4:48 PM EST Triage call Pt reports a month ago being seen in ED for nausea, vomiting and loose stools. Pt was given zofran which was effective. Pt reports the same symptoms started yesterday. 08/06 vomited x1, nausea and loose stool. Today no vomiting, loose/soft stool x5 , neg for fever, neg for sore throat ,earache and Covid test is neg done 08/06. Pt is drinking adequate fluid and advised to keep fluid intake up to 8 glasses/day and Pt agrees. Pt has been taking zofran which was left from ED visit and it is effective to stop the nausea. Pt is requesting zofran prescription. apt given for SDC CHC 340pm 08/08. Protocol Used: Nausea (Adult) Protocol-Based Disposition: See in Office or Video Visit Today or Tomorrow Video visit not offered Positive Triage Question: * Patient wants to be seen * All higher-acuity triage questions were negative Care Advice Discussed: * Reassurance and Education * Clear Fluids * Solids * Reasons To Call Back - Nausea lasts over 1 week - You become worse * Telephone Encounter - Rula Barcenas - 08/07/2022 2:57 PM EST Tc from pt returning a call back to triage nurse. Please contact in Indonesian at [phone] documented in this encounter Plan of Treatment Upcoming Encounters Date Type Department Care Team ([facility] st Contact Info) Description 05/02/2025 9:00 AM EDT Office Visit [facility] MED & PEDS [address] [place] [address] Lani Peoples MD [address] [place] [address] documented as of this encounter Visit Diagnoses Not on filedocumented in this encounter Care Teams Winding Lathe Operator Relationship Specialty Start Date End Date Lani Peoples MD [address] [place] [address] PCP - General Internal Medicine 08/10/18 documented as of this encounter
--- OUTSIDE RECORDS SUMMARY | 2025-04-12 08:03 | XMS_ITS | Encounter Summary ---
Author Organization [employer] Address [address] [facility] 7 [place] [address] Care Team Providers Care Medical Affairs Director Name Role Phone Lani Peoples MD Primary Care Provider Encounter Details Date Type Department Care Team ([facility] st Contact Info) Description 06/24/2024 Orders Only [facility] CHC MED & PEDS [address] [place], [place] [phone] Lani Peoples MD [address] [place] [address] Other fatigue (Primary Dx) Social History Tobacco Use Types [...] your housing situation today? I have janine sing 06/08/[address] you li [...] Upcoming Encounters Date Type Department Care Team ([facility] st Contact Info) Description 05/02/2025 9:00 AM EDT Office Visit [facility] MED & PEDS [address] [place] [address] Lani Peoples MD [address] [place] [address] documented as of this encounter Visit Diagnoses Diagnosis Other fatigue- Primary documented in this encounter Additional Health Concerns Assessment Noted Time PHQ-9 Depression Total Score: 0 09/10/19 24 2:24 PM EST documented as of this encounter Care Teams Medical Affairs Director Relationship Specialty Start Date End Date Lani Peoples MD [address] [place] [address] PCP - General Internal Medicine 08/10/18 documented as of this encounter
--- OUTSIDE RECORDS SUMMARY | 2025-04-12 08:03 | XMS_ITS | Encounter Summary ---
Author Organization [employer] Address [address] [facility] 7 [place] [address] Care Team Providers Care Mental Health Counselor Name Role Phone Lani Peoples MD Primary Care Provider Reason for Visit * Reason Comments Med Refill Encounter Details Date Type Department Care Team ([facility] st Contact Info) Description 03/14/2025 Refill [facility] CHC MED & PEDS [address] [place] [address] Lani Peoples MD [address] [place] [address] Acute non-recurrent maxillary sinusitis; Irritant contact dermatitis due to other agents; Other infective acute otitis externa of left ear Social History Tobacco Use Types Packs/Day Years [...] 9:00 AM EDT Office Visit [facility] MED & PEDS [address] [place] [address] Lani Peoples MD [address] [place] [address] documented as of this encounter Visit Diagnoses Diagnosis Acute non-recurrent maxillary sinusitis Irritant contact dermatitis due to other agents Other infective acute otitis externa of left ear documented in this encounter Additional Health Concerns Assessment Noted Time PHQ-9 Depression Total Score: 1 01/31/20 25 10:02 AM EDT documented as of this encounter Care Teams Mental Health Counselor Relationship Specialty Start Date End Date Lani Peoples MD [address] [place] [address] PCP - General Internal Medicine 08/10/18 documented as of this encounter
--- OUTSIDE RECORDS SUMMARY | 2025-04-12 08:03 | XMS_ITS | Encounter Summary ---
Author Organization [employer] Address [address] [place] [address] 7 [place] [address] Care Team Providers Care Wet Process Head Miller Name Role Phone Lani Peoples MD Primary Care Provider Reason for Visit * Reason Onset Date Comments triage 08/07/2022 Encounter Details Date Type Department Care Team ([facility] st Contact Info) Description 08/07/2022 Telephone [facility] MED & PEDS [address] [place], [place] [phone] Lani Peoples MD [address] [place], [place] [phone] triage Social History Tobacco Use Types Packs/Day Years Used Date Smoking Tobacco: Never Assessed Comments Unknown Sex and Gender Information Value Date Recorded Sex Assigned at Female 06/09/2022 10:21 AM EDT Legal Sex Female 10:21 AM EDT Gender Identity Female 06/09/2022 10:21 AM EDT Sexual Orientation Straight 06/09/2022 10 :21 AM EDT documented as of this encounter Miscellaneous Notes * Telephone Encounter - Taylor Ashby RN - 08/07/2022 2:34 PM EST Triage call x 2 no answer, left message to call [facility] triage line at [phone] * Telephone Encounter - Aleyda Landin - 08/07/2022 1:09 PM EST Symptom: Nausea But No Vomiting Outcome: Schedule an appointment to be seen within 3 days Reason: No high acuity concerns reported by caller The caller accepted this outcome documented in this encounter Plan of Treatment Upcoming Encounters Date Type Department Care Team (Late st Contact Info) Description 05/02/2025 9:00 AM EDT Office Visit [facility] MED & PEDS [address] [place] [address] Lani Peoples MD [address] [place] [address] documented as of this encounter Visit Diagnoses Not on filedocumented in this encounter Care Teams Wet Process Head Miller Relationship Specialty Start Date End Date Lani Peoples MD [address] [place] [address] PCP - General Internal Medicine 08/10/18 documented as of this encounter
== END 2025-04-12 07:58 | disposition home or self-care (01) ==
LOC: HO.US 07:57
PROVIDERS: PCP Internal Medicine; Visit Provider Internal Medicine
DX: R74.01 Elevation of levels of liver transaminase levels (principal)
CPT/HCPCS: 76700; 76981

== ENCOUNTER → 2025-04-12 08:03 | Outpatient (BNV) | payer OTHER, SELFPAY | PROVIDERS: PCP Internal Medicine; Visit Provider Radiology Diagnostic Radiology | DX: R74.01 Elevation of levels of liver transaminase levels (principal) | CPT/HCPCS: 76700 ==

== ENCOUNTER 2025-04-17 15:27 | Outpatient (REF) | payer OTHER, SELFPAY ==
--- OUTSIDE RECORDS SUMMARY | 2025-04-17 18:29 | XMS_ITS | Encounter Summary ---
Author Organization [employer] Address [address] [facility] 7 [place] [address] Care Team Providers Care Comptroller Name Role Phone Lani Peoples MD Primary Care Provider [phone] Reason for Visit * Reason Comments Med Refill Encounter Details Date Type Department Care Team ([facility] st Contact Info) Description 03/14/2025 Refill [facility] CHC MED & PEDS [address] [place] [address] Lani Peoples MD [address] [place] [address] Acute non-recurrent maxillary sinusitis; Irritant contact dermatitis [...] Description 05/02/2025 9:00 AM EDT Office Visit [facility] MED & PEDS [address] [place] [address] Lani Peoples MD [address] [place] [address] documented as of this encounter Visit Diagnoses Diagnosis Acute non-recurrent maxillary sinusitis Irritant contact dermatitis due to other agents Other infective acute otitis externa of left ear documented in this encounter Additional Health Concerns Assessment Noted Time PHQ-9 Depression Total Score: 1 01/31/20 25 10:02 AM EDT documented as of this encounter Care Teams Comptroller Relationship Specialty Start Date End Date Lani Peoples MD [address] [place] [address] PCP - General Internal Medicine 08/10/18 documented as of this encounter
--- OUTSIDE RECORDS SUMMARY | 2025-04-17 18:29 | XMS_ITS | Encounter Summary ---
Author Organization [employer] Address [address] [facility] 7 [place] [address] Care Team Providers Care Nanotechnology Engineering Technologist Name Role Phone Lani Peoples MD Primary Care Provider Reason for Visit * Reason Comments Med Refill Encounter Details Date Type Department Care Team ([facility] st Contact Info) Description 08/21/2023 Refill [facility] CHC MED & PEDS [address] [place], [place] [phone] Lani Peoples MD [address] [place], [place] [phone] Social History Tobacco Use Types Packs/Day Years [...] [facility] MED & PEDS [address] [place] [address] Lani Peoples MD [address] [place] [address] documented as of this encounter Visit Diagnoses Not on filedocumented in this encounter Additional Health Concerns Assessment Noted Time PHQ-9 Depression Total Score: 1 09/08/19 23 4:01 PM EST documented as of this encounter Care Teams Nanotechnology Engineering Technologist Relationship Specialty Start Date End Date Lani Peoples MD [address] [place] [address] PCP - General Internal Medicine 08/10/18 documented as of this encounter
--- OUTSIDE RECORDS SUMMARY | 2025-04-17 18:29 | XMS_ITS | Encounter Summary ---
Author Organization [employer] Address [address] [place] [address] [address] [address] Care Team Providers Care Concrete Batcher Name Role Phone Lani Peoples MD Primary Care Provider [phone] Encounter Details Date Type Department Care Team ([facility] Contact Info) Description 05/01/2023 Orders Only [facility] MED & PEDS [address] [place] [address] Lani Peoples MD [address] [place] [address] Gastroesophageal reflux disease without esophagitis (Primary Dx); [...] Upcoming Encounters Date Type Department Care Team ([facility] Contact Info) Description 05/02/2025 9:00 AM EDT Office Visit [facility] MED & PEDS [address] [place] [address] Lani Peoples MD [address] [place] [address] documented as of this encounter Visit Diagnoses Diagnosis Gastroesophageal reflux disease without esophagitis- Primary Esophageal reflux Nausea Nausea alone documented in this encounter Additional Health Concerns Assessment Noted Time PHQ-9 Depression Total Score: 1 09/08/19 23 4:01 PM EST documented as of this encounter Care Teams Concrete Batcher Relationship Specialty Start Date End Date Lani Peoples MD [address] [place] [address] PCP - General Internal Medicine 08/10/18 documented as of this encounter
--- OUTSIDE RECORDS SUMMARY | 2025-04-17 18:29 | XMS_ITS | Encounter Summary ---
Author Organization [employer] Address [address] [facility] 7 [place] [address] Care Team Providers Care Social Science Teacher Name Role Phone Lani Peoples MD Primary Care Provider Reason for Visit * Reason Onset Date Comments Referral 04/17/2025 Encounter Details Date Type Department Care Team ([facility] st Contact Info) Description 04/17/2025 Telephone [facility] CHC MED & PEDS [address] [place] [address] Lani Peoples MD [address] [place] [address] Referral Social History Tobacco Use Types Packs/Day Years [...] encounter Miscellaneous Notes * Telephone Encounter - Diane Daniels - 04/17/2025 3:20 PM EDT Pt added new insurance ([employer]) pt states waiting on referral for gastro. Pls call pt with update documented in this encounter Plan of Treatment Upcoming Encounters Date Type Department Care Team (Late st Contact Info) Description 05/02/2025 9:00 AM EDT Office Visit [facility] CHC MED & PEDS [address] [place] [address] Lani Peoples MD [address] [place] [address] documented as of this encounter Visit Diagnoses Not on filedocumented in this encounter Additional Health Concerns Assessment Noted Time PHQ-9 Depression Total Score: 1 01/31/20 25 10:02 AM EDT documented as of this encounter Care Teams Social Science Teacher Relationship Specialty Start Date End Date Lani Peoples MD [address] [place] [address] PCP - General Internal Medicine 08/10/18 documented as of this encounter
--- OUTSIDE RECORDS SUMMARY | 2025-04-17 18:29 | XMS_ITS | Encounter Summary ---
Author Organization [employer] Address [address] [facility] 7t [place] [address] Care Team Providers Care Community Development Planner Name Role Phone Lani Peoples MD Primary Care Provider [phone] Reason for Visit * Reason Onset Date Comments Results 02/06/2025 Encounter Details Date Type Department Care Team ([facility] st Contact Info) Description 02/06/2025 Results Follow-Up [facility] [address] [place] [address] Susan Mistry, SYL Hepatitis B Surface Antibody, Qualitative, Prothrombin Time-INR, Ferritin, Additional followed-up results: 2 Social History Tobacco Use Types Packs/Day Years [...] housing situation today? I have janinelena pederson 01/30/[address] you [...] encounter Miscellaneous Notes * Telephone Encounter - Eula Diaz RN - 04/13/2025 10:00 AM EDT T/C to pt. Advised of message from PCP re: ABD US results and poc. Pt verbalized understanding and reports agreement with plan. * Telephone Encounter - Eula Diaz RN - 04/13/2025 9:56 AM EDT ----- Message from Lani Peoples MD sent at 04/12/2025 9:02 PM EDT ----- Please call to report the results of the abdominal ultrasound which revealed liver stiffness ( healthy, soft liver tissue is being replaced by tough, non- functional scar tissue, a condition called fibrosis. This is often the result of chronic, long-term damage from diseases like hepatitis or fatty liver disease.) Hepatitis C done 4 years ago was negative. I will request a repeat Hep C. Ms Fang Lopez will be referred to Gastroenterology for further management. ----- Message ----- From: Catherine Ris Results In Sent: 04/12/2025 10:11 AM EDT To: Lani Peoples MD * Telephone Encounter - Susan Mistry RN - 02/06/2025 9:35 AM EDT TC to pt. RN explained lab results and new medication reccomendations below. Pt verbalized understanding and agreement with the plan of care. ----- Message from Lani Peoples MD sent at 02/06/2025 8:45 AM EDT ----- Please call. The blood work is acceptable. Pt's ferritin level is stable ( she can start taking herIron supplementation every other day). We can repeat the level in 3-4 months. ----- Message ----- From: Interface, Lab Results In Sent: 02/03/2025 2:27 PM EDT To: Lani Peoples MD documented in this encounter Plan of Treatment Upcoming Encounters Date Type Department Care Team (Late st Contact Info) Description 05/02/2025 9:00 AM EDT Office Visit [facility] [address] [place] [address] Lani Peoples MD [address] [place] [address] documented as of this encounter Visit Diagnoses Not on filedocumented in this encounter Additional Health Concerns Assessment Noted Time PHQ-9 Depression Total Score: 1 01/31/20 25 10:02 AM EDT documented as of this encounter Care Teams Community Development Planner Relationship Specialty Start Date End Date Lani Peoples MD [address] [place] [address] PCP - General Internal Medicine 08/10/18 documented as of this encounter
--- OUTSIDE RECORDS SUMMARY | 2025-04-17 18:29 | XMS_ITS | Encounter Summary ---
Author Organization [employer] Address [address] [place] [address] Care Team Providers Care Precision Grinder Name Role Phone Lani Peoples MD Primary Care Provider [phone] Reason for Referral * Consultation (Routine) - Pending Review Specialty Diagnoses / Procedures Referred By Twyla guillen Referred To Contact Gastroenterology Diagnoses Other fatigue Transaminitis Lani Peoples MD [address] [place] [address] Phone: tel: fax: Referral ID Status Reason Start Date Expiration Date Visits Requested Visits Authorized [id number] Pending Review Specialty Services Required 04/12/2025 04/12/2026 1 1 Encounter Details Date Type Department Care Team (Late st Contact Info) Description 04/12/2025 Orders Only [facility] MED & PEDS [address] [place] [address] Lani Peoples MD [address] [place], [place] [phone] Other fatigue (Primary Dx); Transaminitis Social History Tobacco Use Types Packs/Day Years [...] your housing situation today? I have janine epderson 01/30/[address] you li [...] Description 05/02/2025 9:00 AM EDT Office Visit [facility] [address] [place] [address] Lani Peoples MD [address] [place] [address] Scheduled Orders Name Type Priority Associated Diagnoses Orde r Schedule Hepatitis C Antibody with Reflex to HCV, RNA, Quantitative, Real-Time PCR Lab Routine Other fatigue Transaminitis Expected: 04/12/2025, Expires: 04/12/2026 Scheduled Referrals Name Type Priority Associated Diagnoses Order Schedule Referral to Gastroenterology Outpatient Referral Routine Other fatigue Transaminitis Expected: 04/12/2025 (Approximate), Expires: 04/12/2026 documented as of this encounter Visit Diagnoses Diagnosis Other fatigue- Primary Transaminitis Nonspecific elevation of levels of transaminase or lactic acid dehydrogenase (LDH) documented in this encounter Additional Health Concerns Assessment Noted Time PHQ-9 Depression Total Score: 1 01/31/20 25 10:02 AM EDT documented as of this encounter Care Teams Precision Grinder Relationship Specialty Start Date End Date Lani Peoples MD [address] [place] [address] PCP - General Internal Medicine 08/10/18 documented as of this encounter
--- OUTSIDE RECORDS SUMMARY | 2025-04-17 18:29 | XMS_ITS | Encounter Summary ---
Author Organization [employer] Address [address] [place] [address] Care Team Providers Care Pumper Head Name Role Phone Lani Peoples MD Primary Care Provider Encounter Details Date Type Department Care Team (Late Contact Info) Description 03/18/2023 Orders Only [facility] MED & PEDS [address] [place] [address] Nayely Alvarez LPN Social History Tobacco Use [...] 9:00 AM EDT Office Visit [facility] MED & PEDS [address] [place] [address] Lani Peoples MD [address] [place] [address] documented as of this encounter Visit Diagnoses Not on filedocumented in this encounter Additional Health Concerns Assessment Noted Time PHQ-9 Depression Total Score: 1 09/08/19 23 4:01 PM EST documented as of this encounter Care Teams Pumper Head Relationship Specialty Start Date End Date Lani Peoples MD [address] [place] [address] PCP - General Internal Medicine 08/10/18 documented as of this encounter
--- OUTSIDE RECORDS SUMMARY | 2025-04-17 18:29 | XMS_ITS | Encounter Summary ---
Author Organization [employer] Address [address] [place] [address] [address], [place] [address] Care Team Providers Care Mixing Tumbler Operator Name Role Phone Lani Peoples MD Primary Care Provider Reason for Referral * Imaging (Routine) - Closed Specialty Diagnoses / Procedures Referred By Contac t Referred To Contact Radiology Diagnoses Transaminitis Procedures US Abdomen Comp w elastography Lani Peoples MD [address] [place] [address] Phone: tel: fax: [address] Phone: tel: fax: Referral ID Status Reason Start Date Expiration Date Visits Re quested Visits Authorized [id number] Closed 02/02/2025 02/02/2026 1 1 Encounter Details Date Type Department Care Team (Late st Contact Info) Description 02/02/2025 Orders Only [facility] [address] [place], [place] [phone] Lani Peoples MD [address] [place] [phone] Transaminitis (Primary Dx) Social History Tobacco Use [...] Upcoming Encounters Date Type Department Care Team ([facility] st Contact Info) Description 05/02/2025 9:00 AM EDT Office Visit [facility] MED & PEDS [address] [place] [address] Lani Peoples MD [address] [place] [address] Scheduled Orders Name Type Priority Associated Diagnoses Orde r Schedule Smooth Muscle Antibody with Reflex to Titer Lab Routine Transaminitis Expected: 02/02/2025 (Approximate), Expires: 02/02/2026 Alpha 1 Antitrypsin Lab Routine Transaminitis Expected: 02/02/2025 (Approximate), Expires: 02/02/2026 documented as of this encounter Procedures Procedure Name Priority Date/Time Associated Diagnosis Comments US ABDOMEN COMPLETE WITH ELASTOGRAPHY Routine 04/12/2025 8:15 AM EDT Transaminitis IMMUNOGLOBULINS, QUANTITATIVE, IGA, IGG, IGM Routine 02/03/2025 8:57 AM EDT Transaminitis IRON AND TOTAL IRON BINDING CAPACITY Routine 02/03/2025 8:37 AM EDT Transaminitis HEPATITIS B SURFACE ANTIBODY, QUALITATIVE Routine 02/03/2025 8:37 AM EDT Transaminitis PROTHROMBIN TIME-INR Routine 02/03/2025 8:37 AM EDT Transaminitis FERRITIN Routine 02/03/2025 8:37 AM EDT Transaminitis documented in this encounter Results * US Abdomen Comp w elastography (04/12/2025 8:15 AM EDT) Anatomical Region Laterality Modality Abdomen Ultrasound 04/12/2025 8:15 AM EDT Narrative 04/12/2025 10:10 AM EDT [place] [address] Ultrasound Report Signed Patient: Fang Lopez MR#: [id number] : 1980 Acct:[id number] Age/Sex: 44 / F ADM Date: 04/12/25 Loc: HO.US Attending Dr: Lani Peoples MD Ordering Physician: Lani Peoples MD Date of Service: 04/12/25 Procedure(s): US abdomen comp w elastography Accession Number(s): [id number] cc: Lani Peoples MD Reason for Exam: Transaminitis EXAMINATION: US COMPLETE ABDOMEN WITH LIVER ELASTOGRAPHY CLINICAL INFORMATION: Transaminitis COMPARISON: November 07, 2023 TECHNIQUE: Real-time imaging of the abdominal viscera. Noninvasive ultrasound liver fibrosis assessment is performed using Jose ElastPQ point quantification shear wave elastography (pSWE) with a C5-2 MHz transducer. Multiple elastography samples are obtained. FINDINGS: PANCREAS: The visualized pancreatic head and body are normal in appearance. The remainder of the pancreas is obscured from visualization by the overlying bowel gas. ABDOMINAL AORTA: No aortic aneurysm is seen. INFERIOR VENA CAVA: Visualized portions are normal. LIVER: The liver demonstrates normal size, contour with coarse echogenicity. No focal lesion or intrahepatic biliary duct dilatation. The right lobe measures 13 cm in length. The left lobe measures 6 cm in length. The main portal vein is patent with normal direction of flow. It demonstrates a continuously forward venous waveform. Shear wave liver elastography median stiffness is 2.3 m/s (reference: normal median stiffness is 1.3 m/s or less). IQR/median stiffness to assess sampling precision is 0.13 (reference: good quality data set is IQR/median stiffness of 0.15 or less). GALLBLADDER: The gallbladder is physiologically distended without evidence of stones, sludge, polyps, wall thickening or pericholecystic fluid. COMMON BILE DUCT: Normal in caliber measuring 0.3 cm in diameter. RIGHT KIDNEY: No hydronephrosis. No renal calculi or focal parenchymal lesions. The kidney measures 11 cm in maximum dimension. LEFT KIDNEY: No hydronephrosis. No renal calculi or focal parenchymal lesions. The kidney measures 11 cm in maximum dimension. SPLEEN: Unremarkable. The spleen measures 9 cm in maximum dimension. FREE FLUID: None seen. US/US abdomen comp w elastography IMPRESSION: The liver has a coarse echotexture suggesting underlying hepatic disease Liver elastography: Increased liver stiffness measuring 2.3 m/s is consistent with compensated advanced chronic liver disease. REFERENCE: Society of Radiologists in Ultrasound Liver Stiffness Thresholds (2020): LIVER STIFFNESS THRESHOLDS: *Liver Stiffness equal or less than 1.3 m/s: High probability of being normal. *Liver Stiffness less than 1.7 m/s: In the absence of other known clinical signs, rules out compensated advanced chronic liver disease. *Liver Stiffness 1.7-2.1 m/s: Suggestive of compensated advanced chronic liver disease but need further test for confirmation. *Liver Stiffness over 2.1 m/s: Rules in compensated advanced chronic liver disease. *Liver Stiffness over 2.4 m/s: Suggestive of clinically significant portal hypertension. QUALITY OF DATA SET: *IQR/Median value equal or less than 0.15 implies a quality data set. *IQR/Median value over 0.15 implies a poor quality data set. SIGNIFICANT CHANGE FROM PRIOR EXAM: Significant change if liver stiffness measurement is 10% or greater from prior exam. OTHER CONSIDERATIONS: The stage of liver fibrosis may be overestimated in the setting of acute hepatitis, liver inflammation, elevated liver function tests, hepatic vascular congestion, obstructive cholestasis, non-fasting state, and infiltrative diseases such as amyloidosis and lymphoma. In some patients with NAFLD, the liver stiffness thresholds for compensated advanced chronic liver disease may be lower. In causes other than viral hepatitis and NAFLD, liver stiffness thresholds are not well established. Electronically signed by: Simone Coley MD 04/12/2025 10:07 AM EDT Dictated By: Simone Coley MD Signed By: <Electronically signed by Simone Coley MD in OV> 04/12/25 1007 DD/ 0815 TD/TT: 04/12/25 0834 Fly Setter: Procedure Note Donotuseinterpreter, Image - 04/12/2025 [place] [address] Ultrasound Report Signed Patient: Fang Lopez#: [id number] : 1980Acct:[id number] Age/Sex: 44 / FADM Date: 04/12/25 Loc: HO.US Attending Dr: Lani Peoples MD Ordering Physician: Lani Peoples MD Date of Service: 04/12/25 Procedure(s): US abdomen comp w elastography Accession Number(s): [id number] cc: Lani Peoples MD Reason for Exam: Transaminitis EXAMINATION: US COMPLETE ABDOMEN WITH LIVER ELASTOGRAPHY CLINICAL INFORMATION: Transaminitis COMPARISON: November 07, 2023 TECHNIQUE: Real-time imaging of the abdominal viscera. Noninvasive ultrasound liver fibrosis assessment is performed using Jose ElastPQ point quantification shear wave elastography (pSWE) with a C5-2 MHz transducer. Multiple elastography samples are obtained. FINDINGS: PANCREAS: The visualized pancreatic head and body are normal in appearance. The remainder of the pancreas is obscured from visualization by the overlying bowel gas. ABDOMINAL AORTA: No aortic aneurysm is seen. INFERIOR VENA CAVA: Visualized portions are normal. LIVER: The liver demonstrates normal size, contour with coarse echogenicity. No focal lesion or intrahepatic biliary duct dilatation. The right lobe measures 13 cm in length. The left lobe measures 6 cm in length. The main portal vein is patent with normal direction of flow. It demonstrates a continuously forward venous waveform. Shear wave liver elastography median stiffness is 2.3 m/s (reference: normal median stiffness is 1.3 m/s or less). IQR/median stiffness to assess sampling precision is 0.13 (reference: good quality data set is IQR/median stiffness of 0.15 or less). GALLBLADDER: The gallbladder is physiologically distended without evidence of stones, sludge, polyps, wall thickening or pericholecystic fluid. COMMON BILE DUCT: Normal in caliber measuring 0.3 cm in diameter. RIGHT KIDNEY: No hydronephrosis. No renal calculi or focal parenchymal lesions. The kidney measures 11 cm in maximum dimension. LEFT KIDNEY: No hydronephrosis. No renal calculi or focal parenchymal lesions. The kidney measures 11 cm in maximum dimension. SPLEEN: Unremarkable. The spleen measures 9 cm in maximum dimension. FREE FLUID: None seen. US/US abdomen comp w elastography IMPRESSION: The liver has a coarse echotexture suggesting underlying hepatic disease Liver elastography: Increased liver stiffness measuring 2.3 m/s is consistent with compensated advanced chronic liver disease. REFERENCE: Society of Radiologists in Ultrasound Liver Stiffness Thresholds (2020): LIVER STIFFNESS THRESHOLDS: *Liver Stiffness equal or less than 1.3 m/s: High probability of being normal. *Liver Stiffness less than 1.7 m/s: In the absence of other known clinical signs, rules out compensated advanced chronic liver disease. *Liver Stiffness 1.7-2.1 m/s: Suggestive of compensated advanced chronic liver disease but need further test for confirmation. *Liver Stiffness over 2.1 m/s: Rules in compensated advanced chronic liver disease. *Liver Stiffness over 2.4 m/s: Suggestive of clinically significant portal hypertension. QUALITY OF DATA SET: *IQR/Median value equal or less than 0.15 implies a quality data set. *IQR/Median value over 0.15 implies a poor quality data set. SIGNIFICANT CHANGE FROM PRIOR EXAM: Significant change if liver stiffness measurement is 10% or greater from prior exam. OTHER CONSIDERATIONS: The stage of liver fibrosis may be overestimated in the setting of acute hepatitis, liver inflammation, elevated liver function tests, hepatic vascular congestion, obstructive cholestasis, non-fasting state, and infiltrative diseases such as amyloidosis and lymphoma. In some patients with NAFLD, the liver stiffness thresholds for compensated advanced chronic liver disease may be lower. In causes other than viral hepatitis and NAFLD, liver stiffness thresholds are not well established. Electronically signed by: Simone Coley MD 04/12/2025 10:07 AM EDT Dictated By: Simone Coley MD Signed By: <Electronically signed by Simone Coley MD in OV> 04/12/25 1007 DD/ 0815 TD/TT: 04/12/25 0834 Fly Setter: us Lani Peoples MD IMG US PROCEDURES Final Res ult * Immunoglobulins, Quantitative, IgA, IgG, IgM (02/03/2025 8:57 AM EDT) IMMUNOGLOBULIN G 1200 600 - 1640 mg/dL [facility] IMMUNOGLOBULIN A 275 47 - 310 mg/dL [facility] Immunoglobulin M 281 50 - 300 mg/dL [facility] Comment:THIS TEST WAS PERFOR MED AT:[facility] [address] [id number] RESENDEZ MD Blood Venous blood specimen / Unknown 02/03/2025 8:57 AM EDT 02/03/2025 2:05 PM EDT us Lani Peoples MD LAB BLOOD ORDERABLES Final Result [facility] [address] [place] [phone] * Iron And Total Iron Binding Capacity (02/03/2025 8:37 AM EDT) Iron 60 30 - 160 mcg/dL [facility] Total Iron Binding Capacity 294 228 - 428 mcg/dL [facility] Percent Iron Saturation 20 15 - 50 % [facility] Unsaturated Iron Binding 234 ug/dL [facility] Blood Venous blood specimen / Unknown 02/03/2025 8:37 AM EDT 02/03/2025 2:10 PM EDT us Lani Peoples MD LAB BLOOD ORDERABLES Final Result Performing Organization Address [facility]/ZIP Co de Phone Number [facility] [address] [place] [phone] * Ferritin (02/03/2025 8:37 AM EDT) Pathologist [facility] Ferritin 46 10 - 250 ng/mL [facility] Blood Venous blood specimen / Unknown 02/03/2025 8:37 AM EDT 02/03/2025 2:10 PM EDT us Lani Peoples MD LAB BLOOD ORDERABLES Final Result Performing Organization Address [facility] Co de Phone Number [facility] [address] [place] [phone] * Prothrombin Time-INR (02/03/2025 8:37 AM EDT) Prothrombin Time 11.3 10.9 - 12.4 SEC [facility] INTERNATIONAL NORM RATIO 1.0 0.9 - 1.1 [facility] Comment:INTERNATIONAL NORMAL IZED RATIO (INR) [...] BLOOD ORDERABLES Final Result Performing Organization Address [facility]/ZIP Co de Phone Number [facility] [address] [place] [address] [phone] * Hepatitis B Surface Antibody, Qualitative (02/03/2025 8:37 AM EDT) ~Hepatitis B Surface Antibody REACTIVE Nonreactive [facility] Comment:REACTIVE: > 11.99 mI U/mL Blood Venous blood specimen / Unknown 02/03/2025 8:37 AM EDT 02/03/2025 2:05 PM EDT us Lani Peoples MD LAB BLOOD ORDERABLES Final Result Performing Organization Address [facility] Co de Phone Number [facility] [address] [place] [phone] documented in this encounter Visit Diagnoses Diagnosis Transaminitis- Primary Nonspecific elevation of levels of transaminase or lactic acid dehydrogenase (LDH) documented in this encounter Additional Health Concerns Assessment Noted Time PHQ-9 Depression Total Score: 1 01/31/20 25 10:02 AM EDT documented as of this encounter Care Teams Mixing Tumbler Operator Relationship Specialty Start Date End Date Lani Peoples MD [address] [place] [phone] PCP - General Internal Medicine 08/10/18 documented as of this encounter
--- OUTSIDE RECORDS SUMMARY | 2025-04-17 18:29 | XMS_ITS | Encounter Summary ---
Author Organization [employer] Address [address] [place] [address], [place] [address] Care Team Providers Care Inspector Final Assembly Conveyor Line Name Role Phone Lani Peoples MD Primary Care Provider [phone] Reason for Visit * Reason Onset Date Comments call back requested 08/07/2022 Returning Call Back 08/12/2022 Encounter Details Date Type Department Care Team ([facility] st Contact Info) Description 08/07/2022 Telephone [facility] [address] [place] [address] Lani Peoples MD [address] [place], [place] [phone] call back requested ; Returning Call Back [...] no answer. LVM to return call to [facility] nurses. * Telephone Encounter - Jaycee [...] No answer. Voice Message left to call [facility]. * Telephone Encounter - Taylor Ashby RN [...] back to triage nurse. Please contact in Khmer at [phone] documented in this encounter Plan of Treatment Upcoming Encounters Date Type Department Care Team ([facility] st Contact Info) Description 05/02/2025 9:00 AM EDT Office Visit [facility] [address] [place] [address] Lani Peoples MD [address] [place] [address] documented as of this encounter Visit Diagnoses Not on filedocumented in this encounter Care Teams Inspector Final Assembly Conveyor Line Relationship Specialty Start Date End Date Lani Peoples MD [address] [place] [address] PCP - General Internal Medicine 08/10/18 documented as of this encounter
--- OUTSIDE RECORDS SUMMARY | 2025-04-17 18:29 | XMS_ITS | Encounter Summary ---
Author Organization [employer] Address [address] [facility] 7 [place] [address] Care Team Providers Care Bathroom Tiling Professional Name Role Phone Lani Peoples MD Primary Care Provider [phone] Encounter Details Date Type Department Care Team ([facility] st Contact Info) Description 06/24/2024 Orders Only [facility]S [address] [place], [place] [phone] Lani Peoples MD [address] [place] [address] Other fatigue (Primary Dx) Social History Tobacco [...] Upcoming Encounters Date Type Department Care Team ([facility] st Contact Info) Description 05/02/2025 9:00 AM EDT Office Visit [facility] MED [facility] PEDS [address] [place] [address] Lani Peoples MD [address] [place] [address] documented as of this encounter Visit Diagnoses Diagnosis Other fatigue- Primary documented in this encounter Additional Health Concerns Assessment Noted Time PHQ-9 Depression Total Score: 0 09/10/19 24 2:24 PM EST documented as of this encounter Care Teams Bathroom Tiling Professional Relationship Specialty Start Date End Date Lani Peoples MD [address] [place] [address] PCP - General Internal Medicine 08/10/18 documented as of this encounter
--- OUTSIDE RECORDS SUMMARY | 2025-04-17 18:29 | XMS_ITS | Clinical Summary ---
Author Organization [employer] Address [address] [facility] 7t [place] [address] Care Team Providers Care Database Support Name Role Phone Lani Peoples MD Primary [...] Encounters Date Type Department Care Team Description 04/17/2025 Telephone [facility] PEDS [address] [place] [address] Lani Peoples MD Referral 04/12/2025 Orders Only [facility] [address] [place] [address] Lani Peoples MD Other fatigue (Primary Dx); Transaminitis 03/14/2025 Refill [facility] [address] [place] [address] Lani Peoples MD Acute non-recurrent maxillary sinusitis; Irritant contact dermatitis due to other agents; Other infective acute otitis externa of left ear 02/06/2025 Results Follow-Up [facility] [address] [place] [address] Susan Mistry RN Hepatitis B Surface Antibody, Qualitative, Prothrombin Time-INR, Ferritin, Additional followed-up results: 2 02/02/2025 Results Follow-Up [facility] [address] [place] [address] Susan Mistry RN CBC auto differential, Ferritin, Lipid Panel, Standard, Additional followed-up results: 2 02/02/2025 Orders Only [facility] & PEDS [address] [place] [address] Lani Peoples MD Transaminitis (Primary Dx) 01/30/2025 9:30 AM EDT Office Visit [facility] [address] [place] [address] Lani Peoples MD Annual physical exam (Primary Dx); Gastroesophageal reflux disease without esophagitis; Mild persistent asthma without complication; Irritant contact dermatitis due to other agents; Recurrent otitis externa of both ears; Encounter for immunization 01/30/2025 Travel 01/29/2025 Travel 01/23/2025 Patient Outreach [facility] [address] [place] [address] Lani Peoples MD Pre-visit Planning (Pre visit planning LVM ) 01/18/2025 Refill [facility] [address] [place] [address] Lani Peoples MD Seasonal allergies from Last [...] Relation Name Comments Alcohol abuse Brother Antony garcia Diabetes Father Breast cancer Father's Sister Ovarian cancer Maternal Grandmother Arthritis Mother Marta dougherty Heart disease Mother Marta dougherty Hypertension Mother [...] Description 05/02/2025 9:00 AM EDT Office Visit [facility] [address] [place] [address] Lani Peoples MD [address] [place] [address] Health Maintenance Due Date Last Done Comments CT Colonography 1978 FIT DNA/Cologuard 1980 FIT 1980 FOBT 1980 Sigmoidoscopy 1980 Family Planning (PISQ) 1993 Colonoscopy 03/08/2025 Colorectal Cancer Screening 03/08/2025 COVID-19 Vaccine ( season) 2025 06/13/2021, 10/24/2020, 09/26/2020 Influenza Vaccine (#1) 2025 , 05/12/2023, 06/20/2022, Additional history exists Tobacco Screening 12/02/2025 12/02/2024 Cervical Cancer Screening 12/18/2025 HPV/Cotest 12/18/2025 12/18/2020, 12/08/2017 Pap Smear 12/18/2025 12/18/2020 Disability Screening 01/29/2026 01/29/2025 Alcohol/Substance Use Screening 01/30/2026 01/30/2025 Depression Screening 01/30/2026 01/30/2025, 01/31/20 SDOH Screening 01/30/2026 01/30/2025 Mammogram 03/25/2026 03/25/2024, 07/, 01/03/2022, Additional history exists Zoster Vaccines (1 [...] Recently Relevant to Health Maintenance Results * US Abdomen Comp w elastography (04/12/2025 8:15 AM EDT) Anatomical Region Laterality Modality Abdomen Ultrasound 04/12/2025 8:15 AM EDT Narrative 04/12/2025 10:10 AM EDT [address] [address] Ultrasound Report Signed Patient: Fang oLpez MR#: [id number] : 1980 Acct:[id number] Age/Sex: 44 / F ADM Date: 04/12/25 Loc: HO.US Attending Dr: Lani Peoples MD Ordering Physician: Lani Peoples MD Date of Service: 04/12/25 Procedure(s): US abdomen comp w elastography Accession Number(s): [id number] cc: Lani Peoples MD Reason for Exam: [...] of Radiologists in Ultrasound Liver Stiffness Thresholds (2019): LIVER STIFFNESS THRESHOLDS: *Liver Stiffness equal or [...] 04/12/25 1007 DD/ 0815 TD/TT: 04/12/25 0834 Fraternity Adviser: Procedure Note Donotuseinterpreter, Image - 04/12/[address] [address] Ultrasound Report Signed Patient: Fang LopezMR#: [id number] : 1980Acct:[id number] Age/Sex: 44 / FADM Date: 04/12/25 Loc: HO.US Attending Dr: Lani Peoples MD Ordering Physician: Lani Peoples MD Date of Service: 04/12/25 Procedure(s): US abdomen comp w elastography Accession Number(s): [id number] cc: Lani Peoples MD Reason for Exam: [...] 04/12/25 1007 DD/ 0815 TD/TT: 04/12/25 0834 Fraternity Adviser: us Lani Peoples MD IMG US PROCEDURES Final Res ult * Immunoglobulins, Quantitative, IgA, IgG, IgM (02/03/2025 8:57 AM EDT) IMMUNOGLOBULIN G 1200 600 - 1640 mg/dL [facility] IMMUNOGLOBULIN A 275 47 - 310 mg/dL [facility] Immunoglobulin M 281 50 - 300 mg/dL [facility] Comment:THIS TEST WAS PERFOR MED AT:[employer] [place] [id number] RESENDEZ MD Blood Venous blood specimen / Unknown 02/03/2025 8:57 AM EDT 02/03/2025 2:05 PM EDT us Lani Peoples MD LAB BLOOD ORDERABLES Final Result Performing Organization Address [facility]/ZIP Co de Phone Number [facility] [address] [place] [phone] * Iron And Total Iron Binding Capacity (02/03/2025 8:37 AM EDT) Only the most recent of2 resultswithin the time period is included. Iron 60 30 - 160 mcg/dL [facility] Total Iron Binding Capacity 294 228 - 428 mcg/dL [facility] Percent Iron Saturation 20 15 - 50 % [facility] Unsaturated Iron Binding 234 ug/dL [facility] Blood Venous blood specimen / Unknown 02/03/2025 8:37 AM EDT 02/03/2025 2:10 PM EDT us Lani Peoples MD LAB BLOOD ORDERABLES Final Result Performing Organization Address City/[facility]/ZIP Co de Phone Number [facility] [address] [place] [phone] * Hepatitis B Surface Antibody, Qualitative (02/03/2025 8:37 AM EDT) ~Hepatitis B Surface Antibody REACTIVE Nonreactive [facility] Comment:REACTIVE: > 11.99 mI U/mL Blood Venous blood specimen / Unknown 02/03/2025 8:37 AM EDT 02/03/2025 2:05 PM EDT us Lani Peoples MD LAB BLOOD ORDERABLES Final Result Performing Organization Address [facility] Co de Phone Number [facility] [address] [place] [phone] * Prothrombin Time-INR (02/03/2025 8:37 AM EDT) Prothrombin Time 11.3 10.9 - 12.4 SEC [facility] INTERNATIONAL NORM RATIO 1.0 0.9 - 1.1 [facility] Comment:INTERNATIONAL NORMAL IZED RATIO (INR) [...] BLOOD ORDERABLES Final Result Performing Organization Address [facility] Co de Phone Number [facility] [address] [place] [phone] * Ferritin (02/03/2025 8:37 AM EDT) Only the most recent of2 resultswithin the time period is included. Ferritin 46 10 - 250 ng/mL [facility] Blood Venous blood specimen / Unknown 02/03/2025 8:37 AM EDT 02/03/2025 2:10 PM EDT us Lani Peoples MD LAB BLOOD ORDERABLES Final Result [facility] [address] [place], [place] [phone] * (ABNORMAL) CBC auto differential (02/01/2025 9:28 AM EDT) White Blood Count 6.8 4.8 - 10.8 X10*3/uL [facility] Red Blood Count 4.72 4.20 - 5.50 X10*6/uL [facility] Hemoglobin 13.2 12.0 - 16.0 g/dl [facility] Hematocrit 40.2 37.0 - 47.0 % [facility] Mean Corpuscular Volume 85.2 80.0 - 98.0 fL [facility] Mean Corpuscular Hemoglobin 28.0 27.0 - 33.0 pg [facility] Mean Corpuscular HGB Conc 32.8 31.0 - 35.0 g/dl [facility] Red Cell Distribution Width 14.1 11.0 - 16.0 % [facility] Platelet Count 363 160 - 400 X10*3/uL [facility] Mean Platelet Volume 10.4 9.4 - 12.3 fL [facility] Neutrophils Percent Auto 54.8 45 - 73 % [facility] Imm Gran Pct Auto 0.1 0.0 - 0.4 % [facility] Lymphocytes Percent Auto 29.7 20 - 40 % [facility] Monocytes Percent Auto 12.7(H) 2 - 11 % [facility] Eosinophils Percent Auto 1.8 0 - 4 % [facility] Basophils Percent Auto 0.9 0 - 2 % [facility] NRBC Pct Auto 0.0 0.0 - 0.2 /100WBC [facility] Neutrophils Absolute Auto 3.8 2.0 - 8.3 x10*3/uL [facility] Imm Gran Abs Auto 0.01 0.00 - 0.03 X10*3/uL [facility] Lymphocytes Absolute Auto 2.0 1.2 - 4.9 X10*3/uL [facility] Monocytes Absolute Auto 0.9 0.1 - 1.2 X10*3/uL [facility] Eosinophils Absolute Auto 0.1 0.0 - 0.4 X10*3/uL [facility] Basophils Absolute Auto 0.1 0.0 - 0.2 X10*3/uL [facility] NRBC Abs Auto 0.000 0.0 - 0.012 X10*3/uL [facility] Blood Venous blood specimen / Unknown 02/01/2025 9:28 AM EDT 02/01/2025 2:28 PM EDT us Lani Peoples MD LAB BLOOD ORDERABLES Final Result [facility] [address] [place] [phone] * (ABNORMAL) Lipid Panel, Standard (02/01/2025 8:28 AM EDT) Triglycerides 136 <150 mg/dL [facility] Comment:Slight Lipemia.Craig able Triglyceride: less than 150 mg/dLBorderline High Triglyceride 150-199 mg/dLHigh Triglyceride: 200-499 mg/dLVery High Triglyceride: greater than or equal to 5OO mg/dL Cholesterol 236(H) <200 mg/dL [facility] Comment:Desirable Cholestero l: less than 200 mg/dLBorderline High Cholesterol: 200-239 mg/dLHigh Cholesterol: greater than 239 mg/dL LDL Cholesterol Calculated 163(H) <100 mg/dL [facility] Comment:Desirable LDL: less than 100 mg/dLNear Optimal/Above Optimal LDL: 110- 129 mg/dLBorderline High LDL: 130-159 mg/dLHigh LDL: 160-189 mg/dLVery High LDL: greater than or equal to 190 mg/dL HDL Cholesterol 46 >40 mg/dL [facility] Comment:Desirable HDL: great er than 40 mg/dL Note: This HDL assay may give artificially low results in patients with liver disease. Blood Venous blood specimen / Unknown 02/01/2025 8:28 AM EDT 02/01/2025 2:28 PM EDT us Lani Peoples MD LAB BLOOD ORDERABLES Final Result Performing Organization Address City/State/[facility] Co de Phone Number [facility] [address] [place] [phone] * (ABNORMAL) Comprehensive Metabolic Panel (02/01/2025 8:28 AM EDT) Sodium 140 135 - 145 mmol/L [facility] Potassium 4.0 3.3 - 5.1 mmol/L [facility] Chloride 107 96 - 108 mmol/L [facility] Carbon Dioxide 26 22 - 29 mmol/L [facility] Anion Gap 11(L) 12 - 20 [facility] Urea Nitrogen (BUN) 11 9 - 16 mg/dL [facility] Creatinine, Serum 0.55 0.5 - 1.4 mg/dL [facility] Estimated Glomerular Filt Rate >60 [facility] Comment:Chronic Kidney Disea se: Estimated GFR < 60 mL/min/1.04z6Oiumua Kidney Disease: Estimated GFR < 15 mL/min/1.73m2 Glucose 86 60 - 115 mg/dL [facility] Calcium 9.4 8.4 - 10.2 mg/dL [facility] Bilirubin, Total 0.4 0.0 - 1.0 mg/dL [facility] Aspartate Amino Transferase 36(H) 5 - 31 U/L [facility] Alanine Aminotransferase 28 0 - 31 U/L [facility] Total Protein 7.2 6.5 - 8.0 g/dL [facility] Albumin Level 4.0 3.5 - 5.0 g/dL [facility] Alkaline Phosphatase 77 39 - 117 U/L [facility] Blood Venous blood specimen / Unknown 02/01/2025 8:28 AM EDT 02/01/2025 2:28 PM EDT us Lani Peoples MD LAB BLOOD ORDERABLES Final Result [facility] [address] [place] [phone] * BI Mammogram Screening Tomosynthesis Bilateral (03/25/2024 3:30 PM EDT) Anatomical Region Laterality Modality Breast Bilateral Mammography 03/25/2024 3:30 PM EDT Narrative 04/23/2024 4:04 PM EDT [facility] [address] [place] [address] Mammography Report Signed Patient: Fang Lopez MR#: [id number] : 1980 Acct:[id number] Age/Sex: 43 / F ADM Date: 03/25/24 Loc: JOSEE.MAMMO Attending Dr: Lani Peoples MD Ordering Physician: Lani Peoples MD Results: 1 Negative Date of Service: 03/25/24 Follow Up: 1 Year From Orig ina Mammogram Procedure(s): MM tomosynthesis screening BI Accession Number(s): [id number] cc: Lani Peoples MD EXAMINATION: MM SCREENING [...] Kierra Reynolds MD 04/23/2024 04:01 PM EDT RP Dictated By: Kierra Reynolds MD Signed By: <Electronically signed by Kierra Reynolds MD in OV> 04/23/24 1601 DD/ 1530 TD/TT: 03/25/24 1545 Fraternity Adviser: Procedure Note Donotuseinterpreter, Image - [facility]/23/[facility] [address] [place] [address] Mammography Report Signed Patient: Fang LopezMR#: [id number] : 1980Acct:[id number] Age/Sex: 43 / FADM Date: 03/25/24 Loc: MAMMEva Attending Dr: Lani Peoples MD Ordering Physician: Lani Peoples MDResults: 1 Negative Date of Service: 03/25/24Follow Up: 1 Year From Orig [facility] Mammogram Procedure(s): MM tomosynthesis screening BI Accession Number(s): [id number] cc: Lani Peoples MD EXAMINATION: MM SCREENING [...] Kierra Reynolds MD 04/23/2024 04:01 PM EDT RP Dictated By: Kierra Reynolds MD Signed By: <Electronically signed by Kierra Reynolds MD in OV> 04/23/24 1601 DD/ 1530 TD/TT: 03/25/24 1545 Fraternity Adviser: us Lani Peoples MD IMG BI PROCEDURES Edited Re sult - Final * HEPATITIS C AB W/REFL TO HCV RNA, QN, PCR (12/18/2020 11:16 AM EDT) HEPATITIS C ANTIBODY NON-REACT LESLI NON-REACT LESLI [facility] INDEX 0.01 <1.00 [facility] Comment: HCV antibody was non-reactive. There is no laboratory evidence of HCV infection. In most cases, no further action is required. However, if recent HCV exposure is suspected, a test for HCV RNA (test code 25112) is suggested. For additional information please refer to http://education.[employer]/faq/DMG25e5 (This link is being provided for informational/ educational purposes only.) 12/18/2020 11:1 6 AM EDT us Elizabeth Dumont CNM HISTORICAL/NON ORDERABLE LABS Final Result [facility] [address] * HIV 1/2 ANTIGEN/ANTIBODY,FOURTH GENERATION W/RFL (12/18/2020 11:16 AM EDT) HIV-1/2 ANTIGEN AND ANTIBODIES, 4TH GENERATION W/ REFLEX NON-REACT LESLI NON-REACT LESLI [facility] Comment: HIV-1 antigen and HIV-1/HIV-2 [...] purpose. For additional information please refer to http://education.OjOs.com.WALTOP/faq/QLB756 (This link is being provided for informational/ educational purposes only.) The performance of this assay has not been clinically validated in patients less than 2 years old. 12/18/2020 11:1 6 AM EDT Elizabeth Dumont [facility] BLOOD ORDERABLES Kylee l Result Performing Organization Address [facility] Co de Phone Number [facility] [address] [place] [address], * THINPREP PAP (12/18/2020 10:30 AM EDT) [...] along with historic and current clinical information. Architecture Department Chair : SEE COMMENT [facility] Comment: BK,CT(ASCP) CT screening location: [address] Interpretation/R esult: Negative for intraepithelial lesion or malignancy. [facility] LMP: NONE GIVEN [facility] Prev. BX: NONE GIVEN [facility] Prev. PAP: NONE GIVEN [facility] SOURCE: None given [facility] Statement Of Adequacy: SEE COMMENT [facility] Comment: Satisfactory for evaluation. Endocervical/transformation zone component present. 12/18/2020 10:3 0 AM EDT Elizabeth Dumont [facility] PATHOLOGY ORDERABLES Final Result Performing Organization Address [facility] Co de Phone Number [facility] [address] [place] [address], * HPV mRNA E6/E7 (12/18/2020 10:30 AM EDT) HPV nRNA E6/E7 Not Detected Not Detected [facility] Comment: Methodology: Real Estate Sales Manager-Mediated Amplification This assay detects E6/E7 viral messenger RNA (mRNA) from 14 high-risk HPV types (16,18,31,33,35,39,45,51,52,56,58,59,66,68). The analytical performance characteristics of this assay have been determined by [employer]. The modifications have not been cleared or approved by the FDA. This assay has been validated pursuant to the CLIA regulations and is used for clinical purposes. For additional information, please refer to http://education.NeuroMetrix/faq/JXB027a4 (This link if provided for information/ educational purposes only.) 12/18/2020 10:3 0 AM EDT us Elizabeth PAREDES LAB BLOOD ORDERABLES Kylee mitchell Result [facility] [employer] [facility] [address] from Last 3 Months or Most Recently Relevant to Health Maintenance [place] [address] [place] [address] 2 Care Teams Database Support Relationship Specialty Start Date End Date Lani Peoples MD [address] [place] [phone] PCP - General Internal Medicine 08/10/18
--- OUTSIDE RECORDS SUMMARY | 2025-04-17 18:29 | XMS_ITS | Encounter Summary ---
Author Organization [employer] Address [address] [facility] 7 [place] [address] Care Team Providers Care General I Farmworker Name Role Phone Lani Peoples MD Primary Care Provider Encounter Details Date Type Department Care Team ([facility] st Contact Info) Description 09/14/[address] [facility]EDS [address] [place], [place] [phone] Lani Peoples MD [address] [place] [address] Gastroesophageal reflux disease without esophagitis (Primary Dx) [...] Upcoming Encounters Date Type Department Care Team ([facility] st Contact Info) Description 05/02/2025 9:00 AM EDT Office Visit [facility] [address] [place] [address] Lani Peoples MD [address] [place] [address] documented as of this encounter Visit Diagnoses Diagnosis Gastroesophageal reflux disease without esophagitis- Primary Esophageal reflux documented in this encounter Additional Health Concerns Assessment Noted Time PHQ-9 Depression Total Score: 0 09/10/19 24 2:24 PM EST documented as of this encounter Care Teams General I Farmworker Relationship Specialty Start Date End Date Lani Peoples MD [address] [place] [address] PCP - General Internal Medicine 08/10/18 documented as of this encounter
--- OUTSIDE RECORDS SUMMARY | 2025-04-17 18:29 | XMS_ITS | Encounter Summary ---
Author Organization [employer] Address [address] [facility] [address] [place] [address] Care Team Providers Care C Unix Developer Name Role Phone Lani Peoples MD Primary Care Provider Encounter Details Date Type Department Care Team (Late Contact Info) Description 09/12/2022 Orders Only [facility] [address] [place] [address] Lani Peoples MD [address] [place] [address] Social History Tobacco Use Types Packs/Day Years [...] Description 05/02/2025 9:00 AM EDT Office Visit [facility]ED[facility] [address] [place] [address] Lani Peoples MD [address] [place] [address] documented as of this encounter Visit Diagnoses Not on filedocumented in this encounter Additional Health Concerns Assessment Noted Time PHQ-9 Depression Total Score: 1 09/08/19 23 4:01 PM EST documented as of this encounter Care Teams C Unix Developer Relationship Specialty Start Date End Date Lani Peoples MD [address] [place] [address] PCP - General Internal Medicine 08/10/18 documented as of this encounter
--- OUTSIDE RECORDS SUMMARY | 2025-04-17 18:29 | XMS_ITS | Encounter Summary ---
Author Organization [employer] Address [address] [place] [address] 7 [place] [address] Care Team Providers Care Baby Nurse Name Role Phone Lani Peoples MD Primary Care Provider Reason for Visit * Reason Onset Date Comments triage 08/07/2022 Encounter Details Date Type Department Care Team ([facility] st Contact Info) Description 08/07/2022 Telephone [facility]S [address] [place], [place] [phone] Lani Peoples MD [address] [place], [place] [phone] triage Social History Tobacco Use Types Packs/Day [...] Miscellaneous Notes * Telephone Encounter - Taylor Ahsby RN - 08/07/2022 2:34 PM EST Triage call x 2 no answer, left message to call [facility] triage line at [phone] * Telephone Encounter - Aleyda Landin - [...] Office Visit [facility] MED [facility] PEDS [address] [place] [address] Lani Peoples MD [address] [place] [address] documented as of this encounter Visit Diagnoses Not on filedocumented in this encounter Care Teams Baby Nurse Relationship Specialty Start Date End Date Lani Peoples MD [address] [place] [address] PCP - General Internal Medicine 08/10/18 documented as of this encounter
[2025-04-18 04:29] LABS: ~HepC Num1 0.16 S/CO (0.00-0.79); ~Hepatitis C Antibody Nonreactive (Nonreactive)
== END 2025-04-17 15:28 | disposition home or self-care (01) ==
LOC: HO.CHCLDS 15:27
PROVIDERS: Visit Provider Internal Medicine
DX: R53.83 Other fatigue (principal); R74.01 Elevation of levels of liver transaminase levels; Z11.59 Encounter for screening for other viral diseases
CPT/HCPCS: 36415; 86803

== ENCOUNTER 2025-06-27 15:34 | Outpatient (AMB) | payer OTHER, SELFPAY ==
[2025-06-27 15:46] VITALS: BP 102/72; PULSE 98; O2SAT 99; BMI 27.3
--- NOTE | 2025-06-27 15:46 | A.OFFVIS_ITS ---
Vital Signs 06/27/25 15:46 Height 4 ft 11 in Weight 135 lb BMI 27.3 BP 102/72 Blood Pressure Location Rt brachial Position Sitting Pulse 98 Pulse Source Pulse Oximeter Pulse Oximetry (%) 99 Oxygen Delivery Method Room Air Intake Visit Reasons: Asthma Allergies Penicillins Allergy (Mild, Verified 06/27/25 15:51) ITCHING, HIVES penicillin V Allergy (Unknown, Verified 06/27/25 15:51) Unknown tramadol (TRAMADOL) Allergy (Unknown, Verified 06/27/25 15:51) VOMITING HPI HPI Asthma: Details: 45-year-old lady, lifetime nonsmoker, followed for mild persistent cough variant asthma and environmental allergies.? At the last office visit she was switched from Flonase to Breo, however she did not like how it made her feel. She is using only as needed albuterol MDI with good control of his symptoms. She denies recent exacerbations. [facility] Medical History (Updated 06/27/25 @ 15:56 by David Sotelo MD) Asthma Gastritis Surgical History (Updated 03/08/24 @ 10:10 by Vita Canales RN) H/O tubal ligation Social History Alcohol intake: never Patient Tobacco Use Status: Never used Tobacco Review of Systems Const Denies daytime sleepiness, Denies excessive sweating, Denies fatigue, Denies fever(s), Denies lethargy, Denies malaise, Denies night sweats, Denies snoring and Denies weight loss Eyes Denies blurry vision and Denies itchy eyes ENT Denies nasal congestion, Denies post nasal drip, Denies sinus pain, Denies sinus pressure and Denies other ( Thrush) Card Denies chest pain, Denies pedal edema, Denies dyspnea, Denies orthopnea and Denies paroxysmal nocturnal dyspnea Resp Denies cough, Denies hemoptysis, Denies excessive phlegm production, Denies dyspnea, Denies snoring and Denies wheezing GI Denies abdominal pain and Denies heartburn Musc Denies myalgias, Denies arthralgias and Denies joint swelling Skin/Breast Denies rash Neuro Denies memory loss and Denies seizure-like activity Psych Denies abnormal sleep pattern, Denies anxiety and Denies memory loss Endo Denies excessive sweating, Denies fatigue and Denies heat intolerance Yakov/Lymph Denies easy bruising Aller/Immun Denies itchy eyes, Denies seasonal rhinorrhea and Denies wheezing Physical Exam Vital Signs: Last Vital Signs Pulse 98 06/27/25 15:46 BP 102/72 06/27/25 15:46 Pulse Ox 99 06/27/25 15:46 Oxygen Delivery Method Room Air 06/27/25 15:46 BMI result Body Mass Index 27.3 Const General: no acute distress and alert Nutritional Appearance: not obese Orientation/consciousness: Other orientation findings ( oriented) HEENT Head: Yes atraumatic Eyes General: appearance normal, both eyes and all related structures Sclerae: sclerae normal EOM: EOMs intact bilaterally Neck Neck: Yes supple Lymphatic: no lymphadenopathy noted Resp Effort & Inspection: normal respiratory effort and no use of accessory muscles Auscultation: clear to auscultation bilaterally Cardio Rate: regular rate Rhythm: regular rhythm Heart sounds: no gallops, no murmurs and no rubs Skin General skin exam: other ( warm) Extrem General: No clubbing, No cyanosis and No edema Assessment & Plan Assessment & Plan (1) Asthma: Code(s): J45.909 - Unspecified asthma, uncomplicated Category: Medical Plan: Well controlled on as needed albuterol MDI. Continue current regimen. Coding Level of Care Code Est Pt Level 3 (65167) Diagnoses Asthma J45.909
== END 2025-06-27 15:56 | disposition home or self-care (01) ==
LOC: HO.HPS 15:34
PROVIDERS: PCP Internal Medicine; Visit Provider Internal Medicine Pulmonary Disease
DX: J45.909 Unspecified asthma, uncomplicated (principal)
CPT/HCPCS: 99213

== ENCOUNTER → 2025-06-27 15:34 | Outpatient (BNVA) | payer OTHER, SELFPAY | PROVIDERS: PCP Internal Medicine; Visit Provider Internal Medicine Pulmonary Disease | DX: J45.909 Unspecified asthma, uncomplicated (principal) | CPT/HCPCS: 99212 ==

== ENCOUNTER 2025-06-28 13:01 | Outpatient (AMB) | payer OTHER, SELFPAY ==
[2025-06-28 13:17] VITALS: BP 127/70; PULSE 74; BMI 27.6
--- NOTE | 2025-06-28 13:17 | MHC.OFFVIS ---
Vital Signs 06/28/25 13:17 Height 4 ft 11 in Weight 136 lb 10.986 oz BMI 27.6 BP 127/70 Blood Pressure Location Lt brachial Position Sitting Pulse 74 Intake Visit Reasons: Increased Liver stiffness,Transaminitis Intake Note: Fang presents in the office as a follow up. CC: states that she seen Alejandra in the past and states that she was told her liver stuff could be due to her medications. Allergies Penicillins Allergy (Mild, Verified 06/27/25 15:51) ITCHING, HIVES penicillin V Allergy (Unknown, Verified 06/27/25 15:51) Unknown tramadol (TRAMADOL) Allergy (Unknown, Verified 06/27/25 15:51) VOMITING HPI Comments Details: This is a 45-year-old female with no significant past medical history who was referred to our office from her primary care provider for abnormal liver elastography. Patient does not report any symptoms including abdominal pain, nausea, vomiting, diarrhea, change in abdominal girth. Reports had routine LFTs as part of yearly physical that showed a mildly elevated AST 236. This prompted an ultrasound with liver elastography which shows a higher than expected stiffness. Ultrasonographically, liver is normal in size and contour but has slight echogenicity. Portal vein is patent. Spleen was normal in size. Fib 4 0.88 Colonoscopy February 2024 with poor prep. Repeat was recommended within a year. [facility] Medical History (Updated 06/29/25 @ 13:36 by Katie Michele MD) Asthma Gastritis Surgical History (Updated 03/08/24 @ 10:10 by Vita Canales RN) H/O tubal ligation Social History Alcohol intake: never Patient Tobacco Use Status: Never used Tobacco Review of Systems Const All systems reviewed & are unremarkable except as noted in HPI and below Physical Exam Exam Exam: No apparent distress Nonicteric Abdomen soft, nondistended Alert and oriented x3, normal gait Vital Signs: Last Vital Signs Pulse 74 06/28/25 13:17 BP 127/70 06/28/25 13:17 BMI result Body Mass Index 27.6 Assessment & Plan Assessment & Plan (1) Abnormal liver enzymes: Code(s): R74.8 - Abnormal levels of other serum enzymes Category: Medical (2) Abnormal ultrasound of liver: Code(s): R93.2 - Abnormal findings on diagnostic imaging of liver and biliary tract Category: Medical (3) Encounter for colorectal cancer screening: Code(s): Z12.11 - Encounter for screening for malignant neoplasm of colon; Z12.12 - Encounter for screening for malignant neoplasm of rectum Category: Medical (4) Encounter for screening colonoscopy: Code(s): Z12.11 - Encounter for screening for malignant neoplasm of colon Category: Medical Plan 1. abnormal elastography Reviewed with the patient that based on overall clinical presentation, suspect that ultrasound elastography is over estimating the liver stiffness. Her fib 4 score is very low 0.88 which argues against any significant liver fibrosis or scarring. This is congruent with her near normal LFTs, platelets and spleen size. Suspect has mild fatty liver based on her risk factor profile, but she was reassured that there was no evidence of advanced fibrosis on overall clinical assessment. Plan: - repeat LFTs 2. colorectal cancer screening Previous colonoscopy prep was not adequate. We will schedule her for repeat colonoscopy. Plan: -PEG prep sent to pharmacy - Instructions handed in written - Pt aware that this will be booked on an elective basis Follow up after colo as needed Orders: Orders Liver Panel 06/28/25 R74.8 - Abnormal levels of other serum enzymes Referrals GI Procedure Notification Z.11 - Encounter for screening for malignant neoplasm of colon Medications: New peg 3350-electrolytes 236-22.74-6.74 -5.86 gram (Golytely) as per split prep instructions, until fecal effluent is clear 240 mL PO Q10M 4,000 mL 0RF colonoscopy Coding Level of Care Code Est Pt Level 4 (03290) Diagnoses Abnormal liver enzymes R74.8 Abnormal ultrasound of liver R93.2 Encounter for colorectal cancer screening Z12.11; Z12 Encounter for screening colonoscopy Z.11
--- OUTSIDE RECORDS SUMMARY | 2025-06-29 00:52 | XMS_ITS | Encounter Summary ---
Author Organization [employer] Address [address] [facility] [address] [place] [address] Care Team Providers Care Ap Operator Name Role Phone Lani Peoples MD Primary Care Provider Encounter Details Date Type Department Care Team ([facility] st Contact Info) Description 06/24/2024 Orders Only [facility] MED & PEDS [address] [place], [place] [phone] Lani Peoples MD [address] [place] [address] Other fatigue (Primary Dx) Social History Tobacco [...] Upcoming Encounters Date Type Department Care Team ([facility] st Contact Info) Description 07/27/2025 9:15 AM EST Office Visit [facility] MED & PEDS [address] [place] [address] Lani Peoples MD [address] [place] [address] documented as of this encounter Visit Diagnoses Diagnosis Other fatigue- Primary documented in this encounter Additional Health Concerns Assessment Noted Time PHQ-9 Depression Total Score: 0 09/10/19 24 2:24 PM EST documented as of this encounter Care Teams Ap Operator Relationship Specialty Start Date End Date Lani Peoples MD [address] [place] [address] PCP - General Internal Medicine 08/10/18 documented as of this encounter
--- OUTSIDE RECORDS SUMMARY | 2025-06-29 00:52 | XMS_ITS | Encounter Summary ---
Author Organization [employer] Address [address] [place] [address] Care Team Providers Care Rf Test Engineer Name Role Phone Lani Peoples MD Primary Care Provider Reason for Referral * Consultation (Routine) - Authorized Specialty Diagnoses / Procedures Referred By Contbeatriz guillen Referred To Contact Gastroenterology Diagnoses Other fatigue Transaminitis Lani Peoples MD [address] [place] [address] Phone: tel: fax: Doris Dent MD [address] [place] [phone] Phone: tel: fax: Referral ID Status Reason Start Date Expiration Date Visits Requested Visits Authorized [id number] Authorized Specialty Services Required 04/12/2025 04/12/2026 1 1 Encounter Details Date Type Department Care Team (Late st Contact Info) Description 04/12/2025 Orders Only C [facility]EDS [address] [place] [phone] Lani Peoples MD [address] [place] [address] [phone] Other fatigue (Primary Dx); Transaminitis Social History [...] Upcoming Encounters Date Type Department Care Team ([facility] st Contact Info) Description 07/27/2025 9:15 AM EST Office Visit [facility] CHC MED & PEDS [address] [place] [address] Lani Peoples MD [address] [place] [address] Scheduled Referrals Name Type Priority Associated Diagnoses Order Schedule Referral to Gastroenterology Outpatient Referral Routine Other fatigue Transaminitis Expected: 04/12/2025 (Approximate), Expires: 04/12/2026 documented as of this encounter Procedures Procedure Name Priority Date/Time Associated Diagnosis Comments HEPATITIS C AB W/REFL TO HCV RNA, QN, PCR Routine 04/17/2025 3:30 PM EDT Other fatigue Transaminitis documented in this encounter Results * Hepatitis C Antibody with Reflex to HCV, RNA, Quantitative, Real-Time PCR (04/17/2025 3:30 PM EDT) Hepatitis C Antibody Nonreactive Nonreactive [facility] Comment:Antibodies to HCV no t detected; does not exclude early acuteHCV infection. Blood Venous blood specimen / Unknown 04/17/2025 3:30 PM EDT 04/17/2025 5:27 PM EDT Lani Peoples MD LAB BLOOD ORDERABLES Final Result [facility] [address] [place] [phone] documented in this encounter Visit Diagnoses Diagnosis Other fatigue- Primary Transaminitis Nonspecific elevation of levels of transaminase or lactic acid dehydrogenase (LDH) documented in this encounter Additional Health Concerns Assessment Noted Time PHQ-9 Depression Total Score: 1 01/31/20 25 10:02 AM EDT documented as of this encounter Care Teams Rf Test Engineer Relationship Specialty Start Date End Date Lani Peoples MD [address] [place] [address] PCP - General Internal Medicine 08/10/18 documented as of this encounter
--- OUTSIDE RECORDS SUMMARY | 2025-06-29 00:52 | XMS_ITS | Encounter Summary ---
Author Organization [employer] Address [address] [facility] 7 [place] [address] Care Team Providers Care Electromechanical Assembler Name Role Phone Lani Peoples MD Primary Care Provider Encounter Details Date Type Department Care Team ([facility] st Contact Info) Description 09/14/2023 Orders Only [facility] CHC MED & PEDS [address] [place], [place] [phone] Lani Peoples MD [address] [place] [address] Gastroesophageal reflux disease without esophagitis (Primary Dx) [...] Upcoming Encounters Date Type Department Care Team ([facility] st Contact Info) Description 07/27/2025 9:15 AM EST Office Visit [facility] MED & PEDS [address] [place] [address] Lani Peoples MD [address] [place] [address] documented as of this encounter Visit Diagnoses Diagnosis Gastroesophageal reflux disease without esophagitis- Primary Esophageal reflux documented in this encounter Additional Health Concerns Assessment Noted Time PHQ-9 Depression Total Score: 0 09/10/19 24 2:24 PM EST documented as of this encounter Care Teams Electromechanical Assembler Relationship Specialty Start Date End Date Lani Peoples MD [address] [place] [address] PCP - General Internal Medicine 08/10/18 documented as of this encounter
--- OUTSIDE RECORDS SUMMARY | 2025-06-29 00:52 | XMS_ITS | Encounter Summary ---
Author Organization [employer] Address [address] [facility] 7 [place] [address] Care Team Providers Care Online Producer Name Role Phone Lani Peoples MD Primary Care Provider Reason for Visit * Reason Comments Med Refill Encounter Details Date Type Department Care Team ([facility] st Contact Info) Description 08/21/2023 Refill [facility] CHC MED & PEDS [address] [place], [place] [phone] Lani Peoples MD [address] [place], [place] [phone] Social History Tobacco Use Types Packs/Day Years [...] Upcoming Encounters Date Type Department Care Team ([facility] st Contact Info) Description 07/27/2025 9:15 AM EST Office Visit [facility] MED & PEDS [address] [place] [address] Lani Peoples MD [address] [place] [address] documented as of this encounter Visit Diagnoses Not on filedocumented in this encounter Additional Health Concerns Assessment Noted Time PHQ-9 Depression Total Score: 1 09/08/19 23 4:01 PM EST documented as of this encounter Care Teams Online Producer Relationship Specialty Start Date End Date Lani Peoples MD [address] [place] [address] PCP - General Internal Medicine 08/10/18 documented as of this encounter
--- OUTSIDE RECORDS SUMMARY | 2025-06-29 00:52 | XMS_ITS | Encounter Summary ---
Author Organization [employer] Address [address] [place] [address] [address] [place] [address] Care Team Providers Care Furnace Hand Name Role Phone Lani Peoples MD Primary Care Provider Reason for Referral * Imaging (Routine) - Closed Specialty Diagnoses / Procedures Referred By Contac t Referred To Contact Radiology Diagnoses Transaminitis Procedures US Abdomen Comp w elastography Lani Peoples MD [address] [place] [address] Phone: tel: fax: [address] Phone: tel: fax: Referral ID Status Reason Start Date Expiration Date Visits Re quested Visits Authorized [id number] Closed 02/02/2025 02/02/2026 1 1 Encounter Details Date Type Department Care Team (Late st Contact Info) Description 02/02/2025 Orders Only C [facility]S [address] [place], [place] [phone] Lani ePoples MD [address] [place] [phone] Transaminitis (Primary Dx) Social History Tobacco Use [...] Upcoming Encounters Date Type Department Care Team ([facility] st Contact Info) Description 07/27/2025 9:15 AM EST Office Visit [facility] CH[facility] MED & PEDS [address] [place] [address] Lani Peoples MD [address] [place] [address] Scheduled Orders Name Type Priority Associated Diagnoses [...] AM EDT Narrative 04/12/2025 10:10 AM EDT [place] [address] Ultrasound Report Signed Patient: Fang Lopez MR#: [id number] : 1980 Acct:[id number] Age/Sex: 44 / F ADM Date: 04/12/25 Loc: HO.US Attending Dr: Lani Peoples MD Ordering Physician: Lani Peoples MD Date of Service: 04/12/25 Procedure(s): US abdomen comp w elastography Accession Number(s): [id number] cc: Lani Peoples MD Reason for Exam: [...] 04/12/25 1007 DD/ 0815 TD/TT: 04/12/25 0834 Prefitter Doors: Procedure Note Donotuseinterpreter, Image - 04/12/2025 [place] [address] Ultrasound Report Signed Patient: Fang Lopez#: [id number] : 1980Acct:[id number] Age/Sex: 44 / FADM Date: 04/12/25 Loc: HO.US Attending Dr: Lani Peoples MD Ordering Physician: Lani Peoples MD Date of Service: 04/12/25 Procedure(s): US abdomen comp w elastography Accession Number(s): [id number] cc: Lani Peoples MD Reason for Exam: [...] 04/12/25 1007 DD/ 0815 TD/TT: 04/12/25 0834 Prefitter Doors: us Lani Peoples MD IMG US PROCEDURES Final Res ult * Immunoglobulins, Quantitative, IgA, IgG, IgM (02/03/2025 8:57 AM EDT) IMMUNOGLOBULIN G 1200 600 - 1640 mg/dL [facility] IMMUNOGLOBULIN A 275 47 - 310 mg/dL [facility] Immunoglobulin M 281 50 - 300 mg/dL [facility] Comment:THIS TEST WAS PERFOR MED AT:[employer] [address] [id number] RESENDEZ MD Blood Venous blood specimen / Unknown 02/03/2025 8:57 AM EDT 02/03/2025 2:05 PM EDT us Lani Peoples MD LAB BLOOD ORDERABLES Final Result [facility] [address] [place] [phone] * Iron And Total Iron Binding Capacity (02/03/2025 8:37 AM EDT) Iron 60 30 - 160 mcg/dL [facility] Total Iron Binding Capacity 294 228 - 428 mcg/dL [facility] Percent Iron Saturation 20 15 - 50 % [facility] Unsaturated Iron Binding 234 ug/dL [facility] Blood Venous blood specimen / Unknown 02/03/2025 8:37 AM EDT 02/03/2025 2:10 PM EDT us Lani Peoples MD LAB BLOOD ORDERABLES Final Result Performing Organization Address [facility]/ZIP Co de Phone Number [facility] [address] [place] [phone] * Ferritin (02/03/2025 8:37 AM EDT) Pathologist [facility] Ferritin 46 10 - 250 ng/mL [facility] Blood Venous blood specimen / Unknown 02/03/2025 8:37 AM EDT 02/03/2025 2:10 PM EDT us Lani Peoples MD LAB BLOOD ORDERABLES Final Result Performing Organization Address [facility] Co de Phone Number [facility] [address] [place] [phone] * Prothrombin Time-INR (02/03/2025 8:37 AM EDT) Pathologist [facility] Prothrombin Time 11.3 10.9 - 12.4 SEC [facility] INTERNATIONAL NORM RATIO 1.0 0.9 - 1.1 [facility] Comment:INTERNATIONAL NORMAL IZED RATIO (INR) [...] BLOOD ORDERABLES Final Result Performing Organization Address [facility] Co de Phone Number [facility] [address] [place] [address] [phone] * Hepatitis B Surface Antibody, Qualitative (02/03/2025 8:37 AM EDT) ~Hepatitis B Surface Antibody REACTIVE Nonreactive [facility] Comment:REACTIVE: > 11.99 mI U/mL Blood Venous blood specimen / Unknown 02/03/2025 8:37 AM EDT 02/03/2025 2:05 PM EDT Lani Peoples MD LAB BLOOD ORDERABLES Final Result Performing Organization Address [facility] de Phone Number [facility] [address] [place] [phone] documented in this encounter Visit Diagnoses Diagnosis Transaminitis- Primary Nonspecific elevation of levels of transaminase or lactic acid dehydrogenase (LDH) documented in this encounter Additional Health Concerns Assessment Noted Time PHQ-9 Depression Total Score: 1 01/31/20 25 10:02 AM EDT documented as of this encounter Care Teams Furnace Hand Relationship Specialty Start Date End Date Lani Peoples MD [address] [place] [phone] PCP - General Internal Medicine 08/10/18 documented as of this encounter
--- OUTSIDE RECORDS SUMMARY | 2025-06-29 00:52 | XMS_ITS | Encounter Summary ---
Author Organization [employer] Address [address] [place] [address], [place] [address] Care Team Providers Care Disposal Operator Name Role Phone Lani Peoples MD Primary Care Provider Reason for Visit * Reason Onset Date Comments call back requested 08/07/2022 Returning Call Back 08/12/2022 Encounter Details Date Type Department Care Team ([facility] st Contact Info) Description 08/07/2022 Telephone [facility] MED & PEDS [address] [place] [address] Lani Peoples MD [address] [place], [place] [phone] call back requested ; Returning Call Back [...] no answer. LVM to return call to [facility] nurses. * Telephone Encounter - Jaycee [...] No answer. Voice Message left to call [facility]. * Telephone Encounter - Taylor Ashby [...] back to triage nurse. Please contact in Malay at [phone] documented in this encounter Plan of Treatment Upcoming Encounters Date Type Department Care Team ([facility] st Contact Info) Description 07/27/2025 9:15 AM EST Office Visit [facility] MED & PEDS [address] [place] [address] Lani Peoples MD [address] [place] [address] documented as of this encounter Visit Diagnoses Not on filedocumented in this encounter Care Teams Disposal Operator Relationship Specialty Start Date End Date Lani Peoples MD [address] [place] [address] PCP - General Internal Medicine 08/10/18 documented as of this encounter
--- OUTSIDE RECORDS SUMMARY | 2025-06-29 00:52 | XMS_ITS | Clinical Summary ---
Author Organization [employer] Address [address] [facility] 7[address] [place] [address] Care Team Providers Care Manager Site Name Role Phone Lani Peoples MD Primary Care Provider [phone] Allergies Active Allergy Reactions Criticality Noted Date Comments Penicillin G Hives 06/02/2012 Tramadol Nausea And Vomiting 02/18/2022 Medications PARoxetine (Paxil) 10 MG tablet TAKE 1 TABLET BY MOUTH EVERY DAY 3 Active Fluticasone Furoate-Vilanter ol (Breo Ellipta) 200-25 MCG/ACT aerosol powder Inhale 200 mcg Once per day. 60 each 11 4 Active montelukast (Singulair) 5 mg split tablet 10 mg. 4 Active famotidine (Pepcid) 20 MG tabletIndication [...] EVERY 12 HOURS 180 mL 5 Active Ketotifen Fumarate 0.035 % solutionIndicati ons:Seasonal allergies ADMINISTER 1 DROP INTO AFFECTED EYE(S) IN THE MORNING AND AT BEDTIME. 5 mL 1 5 Active Active Problems Problem Noted Date Diagnosed Date Mild persistent asthma 10/02/2022 Other allergy, other than to medicinal agents Gastroesophageal reflux disease 04/26/2013 Impacted cerumen 04/26/2013 Encounters Date Type Department Care Team Description 05/02/2025 9:00 AM EDT Office Visit [facility] [address] [place] [address] Lani Peoples MD Transaminitis (Primary Dx); Dietary counseling; Exercise counseling; Overweight 05/02/2025 Travel 05/01/2025 Telephone [facility] [address] [place] [address] Lani Peoples MD chart prep 04/25/2025 Travel 04/18/2025 Results Follow-Up [facility] [address] [place] [address] Lani Peoples MD Hepatitis C Antibody with Reflex to HCV, RNA, Quantitative, Real-Time PCR 04/17/2025 Telephone [facility] [address] [place] [address] Lani Peoples MD Referral 04/12/2025 Orders Only [facility] [address] [place] [address] Lani Peoples MD Other fatigue (Primary Dx); Transaminitis from Last 3 Months Immunizations Immunization Administration [...] Sign Reading Time Taken Comments Blood Pressure 127/85 05/02/2025 8:58 AM EDT Pulse 73 05/02/2025 8:58 AM EDT Temperature 36.3 C (97.3 F) 05/02/2025 8:58 AM EDT Respiratory Rate 20 05/02/2025 8:58 AM EDT Oxygen Saturation 98% 05/02/2025 8:58 AM EDT Inhaled Oxygen Concentration - - Weight 63 kg (139 lb) 05/02/2025 8:58 AM EDT Height 149.9 cm (4' 11 ) 05/02/2025 8:58 AM EDT Body Mass Index 28.07 05/02/2025 8:58 AM EDT Plan of Treatment Upcoming Encounters Date Type Department Care Team (Late st Contact Info) Description 07/27/2025 9:15 AM EST Office Visit [facility]ED[facility] [address] [place] [address] Lani Peoples MD [address] [place] [address] Health Maintenance Due Date Last Done Comments CT Colonography 1978 FIT DNA/Cologuard 1978 FIT 1978 FOBT 1978 Sigmoidoscopy 1978 Family Planning (PISQ) 1993 Colonoscopy 03/08/2025 03/08/2024 Colorectal Cancer Screening 03/08/2025 COVID-19 Vaccine ( season) 2025 06/13/2021, 10/24/2020, 09/26/2020 Influenza Vaccine (#1) 2025 , 05/12/2023, 06/20/2022, Additional history exists Cervical Cancer Screening 12/18/2025 HPV/Cotest 12/18/2025 12/18/2020, 12/08/2017 Pap Smear 12/18/2025 12/18/2020 Disability Screening 01/29/2026 01/29/2025 Alcohol/Substance Use Screening 01/30/2026 01/30/2025 Depression Screening 01/30/2026 01/30/2025, 01/31/20 SDOH Screening 01/30/2026 01/30/2025 Mammogram 03/25/2026 03/25/2024, 02/08, 01/03/2022, Additional history exists Tobacco Screening 05/02/2026 05/02/2025 Zoster Vaccines (1 of 2) 2028 DTaP/Tdap/Td Vaccines (3 - Td or Tdap) 09/10/2033 09/10/2023, 11/01/2010 RSV Patients and Patients Aged 60 years or older (1 - 1-dose 75+ series) 2053 HIV Screening Completed 12/18/2020 Hepatitis B Vaccines Completed 04/16/2021, 01/29/2021, 12/25/2020 Pneumococcal Vaccine: Pediatrics (0 to 5 Years) and At-Risk Patients (6 to 49) Years Completed 01/30/2025 Hepatitis C Screening Completed 04/17/2025, 021 HIB Vaccines Aged Out No longer eligi [...] 04/17/2025 3:30 PM EDT Other fatigue Transaminitis US ABDOMEN COMPLETE WITH ELASTOGRAPHY Routine 04/12/2025 8:15 AM EDT Transaminitis BI MAMMOGRAM SCREENING TOMOSYNTHESIS BILATERAL Routine 03/25/2024 3:30 PM EDT HIV 1/2 ANTIGEN/ANTIBODY, FOURTH GENERATION W/RFL Routine 12/18/2020 11:16 AM EDT HPV MRNA E6/E7 Routine 12/18/2020 10:30 AM EDT THINPREP PAP Routine 12/18/2020 10:30 AM EDT from Last 3 Months or Most Recently Relevant to Health Maintenance Results * Hepatitis C Antibody with Reflex to HCV, RNA, Quantitative, Real-Time PCR (04/17/2025 3:30 PM EDT) Hepatitis C Antibody Nonreactive Nonreactive [facility] Comment:Antibodies to HCV no t detected; does not exclude early acuteHCV infection. Blood Venous blood specimen / Unknown 04/17/2025 3:30 PM EDT 04/17/2025 5:27 PM EDT us Lani Peoples MD LAB BLOOD ORDERABLES Final Result [facility] [address] [place] [phone] * US Abdomen Comp w elastography (04/12/2025 8:15 AM EDT) Anatomical Region Laterality Modality Abdomen Ultrasound 04/12/2025 8:15 AM EDT Narrative 04/12/2025 10:10 AM EDT [place] [address] Ultrasound Report Signed Patient: Fang Lopez MR#: [id number] : 1980 Acct:[id number] Age/Sex: 44 / F ADM Date: 04/12/25 Loc: HO.US Attending Dr: Lani Peoples MD Ordering Physician: Lani Peoples MD Date of Service: 04/12/25 Procedure(s): US abdomen comp w elastography Accession Number(s): [id number] cc: Lani Peoples MD Reason for Exam: [...] 04/12/25 1007 DD/ 0815 TD/TT: 04/12/25 0834 Hopper Operator: Procedure Note Donotuseinterpreter, Image - 04/12/[address] [address] Ultrasound Report Signed Patient: Fang Lopez#: [id number] : 1980Acct:[id number] Age/Sex: 44 / FADM Date: 04/12/25 Loc: HO.US Attending Dr: Lani Peoples MD Ordering Physician: Lani Peoples MD Date of Service: 04/12/25 Procedure(s): US abdomen comp w elastography Accession Number(s): [id number] cc: Lani Peoples MD Reason for Exam: [...] 04/12/25 1007 DD/ 0815 TD/TT: 04/12/25 0834 Hopper Operator: us Lani Peoples MD IMG US PROCEDURES Final Res ult * BI Mammogram Screening Tomosynthesis Bilateral (03/25/2024 3:30 PM EDT) Anatomical Region Laterality Modality Breast Bilateral Mammography 03/25/2024 3:30 PM EDT Narrative 04/23/2024 4:04 PM EDT [facility] [address] [place] [address] [place] [address] Mammography Report Signed Patient: Fang Lopez MR#: [id number] : 1980 Acct:[id number] Age/Sex: 43 / F ADM Date: 03/25/24 Loc: HO.MAMMO Attending Dr: Lani Peoples MD Ordering Physician: Lani Peoples MD Results: 1 Negative Date of Service: 03/25/24 Follow Up: 1 Year From Orig ina Mammogram Procedure(s): MM tomosynthesis screening BI Accession Number(s): [id number] cc: Lani Peoples MD EXAMINATION: MM SCREENING [...] 04/23/24 1601 DD/ 1530 TD/TT: 03/25/24 1545 Hopper Operator: Procedure Note Donotuseinterpreter, Image - 04/23/2024 [facility] [address] [place] [address] Mammography Report Signed Patient: Fang LopezMR#: [id number] : 1980Acct:[id number] Age/Sex: 43 / FADM Date: 03/25/24 Loc: MERNA Attending Dr: Lani Peoples MD Ordering Physician: Lani Peoples MDResults: 1 Negative Date of Service: 03/25/24Follow Up: 1 Year From [facility] Mammogram Procedure(s): MM tomosynthesis screening BI Accession Number(s): [id number] cc: Lani Peoples MD EXAMINATION: MM SCREENING [...] 04/23/24 1601 DD/ 1530 TD/TT: 03/25/24 1545 Hopper Operator: us Lani Peoples MD IMG BI PROCEDURES Edited Re sult - Final * HIV 1/2 ANTIGEN/ANTIBODY,FOURTH GENERATION W/RFL (12/18/2020 11:16 AM EDT) HIV-1/2 ANTIGEN AND ANTIBODIES, 4TH GENERATION W/ REFLEX NON-REACT LESLI NON-REACT LESLI [facility] Comment: HIV-1 antigen and HIV-1/HIV-2 [...] purpose. For additional information please refer to http://education.OneWheel/faq/NOI379 (This link is being provided for informational/ educational purposes only.) The performance of this assay has not been clinically validated in patients less than 2 years old. 12/18/2020 11:1 6 AM EDT Elizabeth Dumont [facility] LAB BLOOD ORDERABLES Kylee mitchell Result [facility] [address] [place] [address], * THINPREP PAP (12/18/2020 10:30 AM EDT) [...] along with historic and current clinical information. Cartography Professor : SEE COMMENT [facility] Comment: BK,CT(ASCP) CT screening location: [address] Interpretation/R esult: Negative for intraepithelial lesion or malignancy. [facility] LMP: NONE [facility]IVEN [facility] Prev. BX: NONE [facility]IVEN [facility] Prev. PAP: NONE [facility]IVEN [facility] SOURCE: None given [facility] Statement Of Adequacy: SEE COMMENT [facility] Comment: Satisfactory for evaluation. Endocervical/transformation zone component present. 12/18/2020 10:3 0 AM EDT Elizabeth Dumont [facility] PATHOLOGY ORDERABLES Final Result Performing Organization Address [facility] Co de Phone Number [facility] [address] * HPV mRNA E6/E7 (12/18/2020 10:30 AM EDT) HPV nRNA E6/E7 Not Detected Not Detected [facility] Comment: Methodology: [employer]-Mediated Amplification This assay detects E6/E7 viral messenger RNA (mRNA) from 14 high-risk HPV types (16,18,31,33,35,39,45,51,52,56,58,59,66,68). The analytical performance characteristics of this assay have been determined by [employer]. The modifications have not been cleared or approved by the FDA. This assay has been validated pursuant to the CLIA regulations and is used for clinical purposes. For additional information, please refer to http://education.OneWheel/faq/BSE427n5 (This link if provided for information/ educational purposes only.) 12/18/2020 10:3 0 AM EDT Elizabeth Dumont [facility] BLOOD ORDERABLES Kylee l Result Performing Organization Address [facility] de Phone Number [facility] [address] from Last 3 Months or Most Recently Relevant to Health Maintenance Insurance [facility] 2 Care Teams Manager Site Relationship Specialty Start Date End Date Lani Peoples MD [address] [place] [phone] PCP - General Internal Medicine 08/10/18
--- OUTSIDE RECORDS SUMMARY | 2025-06-29 00:52 | XMS_ITS | Encounter Summary ---
Author Organization [employer] Address [address] [place] [address] [address] [place] [address] Care Team Providers Care Warehouse Record Clerk Name Role Phone Lani Peoples MD Primary Care Provider Encounter Details Date Type Department Care Team ([facility] Contact Info) Description 05/01/2023 Orders Only [facility] [address] [place] [address] Lani Peoples MD [address] [place] [address] Gastroesophageal reflux disease without esophagitis (Primary Dx); [...] Upcoming Encounters Date Type Department Care Team ([facility] Contact Info) Description 07/27/2025 9:15 AM EST Office Visit [facility] [address] [place], [place] [phone] Lani Peoples MD [address] [place] [address] documented as of this encounter Visit Diagnoses Diagnosis Gastroesophageal reflux disease without esophagitis- Primary Esophageal reflux Nausea Nausea alone documented in this encounter Additional Health Concerns Assessment Noted Time PHQ-9 Depression Total Score: 1 09/08/19 23 4:01 PM EST documented as of this encounter Care Teams Warehouse Record Clerk Relationship Specialty Start Date End Date Lani Peoples MD [address] [place] [address] PCP - General Internal Medicine 08/10/18 documented as of this encounter
--- OUTSIDE RECORDS SUMMARY | 2025-06-29 00:52 | XMS_ITS | Encounter Summary ---
Author Organization [employer] Address [address] [facility] 7 [place] [address] Care Team Providers Care Slide Machine Tender Name Role Phone Lnai Peoples MD Primary Care Provider Reason for Visit * Reason Comments Med Refill Encounter Details Date Type Department Care Team ([facility] st Contact Info) Description 03/14/2025 Refill [facility] PEDS [address] [place] [address] Lani Peoples MD [address] [place] [address] Acute non-recurrent maxillary sinusitis; Irritant contact dermatitis [...] Description 07/27/2025 9:15 AM EST Office Visit [facility] P[facility] [address] [place] [address] Lani Peoples MD [address] [place] [address] documented as of this encounter Visit Diagnoses Diagnosis Acute non-recurrent maxillary sinusitis Irritant contact dermatitis due to other agents Other infective acute otitis externa of left ear documented in this encounter Additional Health Concerns Assessment Noted Time PHQ-9 Depression Total Score: 1 01/31/20 25 10:02 AM EDT documented as of this encounter Care Teams Slide Machine Tender Relationship Specialty Start Date End Date Lani Peoples MD [address] [place] [address] PCP - General Internal Medicine 08/10/18 documented as of this encounter
--- OUTSIDE RECORDS SUMMARY | 2025-06-29 00:52 | XMS_ITS | Encounter Summary ---
Author Organization [employer] Address [address] [place] [address] Care Team Providers Care Photoengraving Sketch Maker Name Role Phone Lani Peoples MD Primary Care Provider Encounter Details Date Type Department Care Team (Late Contact Info) Description 03/18/2023 Orders Only [facility] [address] [place] [address] Nayely Alvarez LPN Social History Tobacco Use [...] Department Care Team (Late Contact Info) Description 07/27/2025 9:15 AM EST Office Visit [facility] [address] [place] [address] Lani Peoples MD [address] [place] [address] documented as of this encounter Visit Diagnoses Not on filedocumented in this encounter Additional Health Concerns Assessment Noted Time PHQ-9 Depression Total Score: 1 09/08/19 23 4:01 PM EST documented as of this encounter Care Teams Photoengraving Sketch Maker Relationship Specialty Start Date End Date Lani Peoples MD [address] [place] [address] PCP - General Internal Medicine 08/10/18 documented as of this encounter
--- OUTSIDE RECORDS SUMMARY | 2025-06-29 00:52 | XMS_ITS | Encounter Summary ---
Author Organization [employer] Address [address] [facility] [address] [place] [address] Care Team Providers Care Aircraft Restorer Name Role Phone Lani Peoples MD Primary Care Provider Encounter Details Date Type Department Care Team (Late Contact Info) Description 09/12/2022 Orders Only [facility] [address] [place] [address] Lani Peoples MD [address] [place] [address] Social History Tobacco Use Types Packs/Day Years [...] Description 07/27/2025 9:15 AM EST Office Visit [facility] PEDS [address] [place] [address] Lani Peoples MD [address] [place] [address] documented as of this encounter Visit Diagnoses Not on filedocumented in this encounter Additional Health Concerns Assessment Noted Time PHQ-9 Depression Total Score: 1 09/08/19 23 4:01 PM EST documented as of this encounter Care Teams Aircraft Restorer Relationship Specialty Start Date End Date Lani Peoples MD [address] [place] [address] PCP - General Internal Medicine 08/10/18 documented as of this encounter
--- OUTSIDE RECORDS SUMMARY | 2025-06-29 00:52 | XMS_ITS | Encounter Summary ---
Author Organization [employer] Address [address] [place] [address] 7 [place] [address] Care Team Providers Care Chip Separator Name Role Phone Lani Peoples MD Primary Care Provider Reason for Visit * Reason Onset Date Comments triage 08/07/2022 Encounter Details Date Type Department Care Team ([facility] st Contact Info) Description 08/07/2022 Telephone [facility] MED & PEDS [address] [place], [place] [phone] Lani Peoples MD [address] [place], [place] [phone] triage Social History Tobacco Use Types Packs/Day [...] 2 no answer, left message to call [facility] triage line at [phone] * Telephone Encounter - Aleyda Landin - [...] Description 07/27/2025 9:15 AM EST Office Visit [facility] MED & PEDS [address] [place] [address] Lani Peoples MD [address] [place] [address] documented as of this encounter Visit Diagnoses Not on filedocumented in this encounter Care Teams Chip Separator Relationship Specialty Start Date End Date Lani Peoples MD [address] [place] [address] PCP - General Internal Medicine 08/10/18 documented as of this encounter
== END 2025-06-28 16:55 | disposition home or self-care (01) ==
PROVIDERS: PCP Internal Medicine; Visit Provider Internal Medicine
DX: Z01.818 Encounter for other preprocedural examination (principal); Z12.11 Encounter for screening for malignant neoplasm of colon; R74.01 Elevation of levels of liver transaminase levels; R93.2 Abnormal findings on diagnostic imaging of liver and biliary tract
CPT/HCPCS: 99214

== ENCOUNTER → 2025-06-28 13:01 | Outpatient (BNVA) | payer OTHER, SELFPAY | PROVIDERS: PCP Internal Medicine; Visit Provider Internal Medicine | DX: Z01.818 Encounter for other preprocedural examination (principal); R74.8 Abnormal levels of other serum enzymes; R93.2 Abnormal findings on diagnostic imaging of liver and biliary tract | CPT/HCPCS: 99212 ==

== ENCOUNTER 2025-07-20 07:34 | Outpatient (REF) | payer OTHER, SELFPAY ==
--- NOTE | ~2025-07-20 | MM_ITS ---
EXAMINATION: MM SCREENING DIGITAL BREAST TOMOSYNTHESIS, BILATERAL CLINICAL INFORMATION: Screening. Asymptomatic. COMPARISON: Mammography: Comparison is made with available priors TECHNIQUE: Digital breast mammography with tomosynthesis is performed in both the craniocaudal and mediolateral oblique views along with computer-aided detection (CAD). FINDINGS: The breasts are heterogeneously dense, which may obscure small masses. There are no significant masses, abnormal calcifications, or other abnormalities. MM/MM tomosynthesis screening BI IMPRESSION: No mammographic evidence of malignancy. ASSESSMENT: BI-RADS Category 1: Negative RECOMMENDATION: Routine annual mammography screening. 1 year F/U This examination should not preclude the clinical evaluation of a suspicious palpable abnormality. This patient's information was entered into a reminder system with a target due date for their next mammogram. Electronically signed by: Lilia Fountain DO 07/21/2025 06:45 PM [facility]UST[facility]
[2025-07-20 09:36] LABS: Alanine Aminotransferase 21 U/L (0-31); Albumin Level 4.3 g/dL (3.5-5.0); Alkaline Phosphatase 75 U/L (39-117); Aspartate Amino Transferase 26 U/L (5-31); Total Protein 7.8 g/dL (6.5-8.0)
== END 2025-07-20 07:35 | disposition home or self-care (01) ==
LOC: HO.MAMMO 07:34
PROVIDERS: Absent Provider Internal Medicine; PCP Internal Medicine; Visit Provider Internal Medicine
DX: Z12.31 Encounter for screening mammogram for malignant neoplasm of breast (principal); R74.8 Abnormal levels of other serum enzymes
CPT/HCPCS: 36415; 77063; 77067; 80076

== ENCOUNTER → 2025-07-20 07:45 | Outpatient (BNV) | payer OTHER, SELFPAY | PROVIDERS: Absent Provider Internal Medicine; PCP Internal Medicine; Visit Provider Internal Medicine | DX: Z12.31 Encounter for screening mammogram for malignant neoplasm of breast (principal) | CPT/HCPCS: 77063; 77067 ==